=== PATIENT | male | born 1990 | race Caucasian/White ===

== ENCOUNTER 2019-11-03 00:25 | Emergency (ER) | payer BC ==
[2019-11-03] MEDS ORDERED: Augmentin 875-125 Tablet PO ONE (00:55)
[2019-11-03] MEDS ORDERED: TORAdol 30 mg Injection IM ONE (00:55)
--- NOTE | 2019-11-03 01:00 | ERPHSYRPT ---
- History of Present Illness Time Seen by Provider: 11/03/19 00:55 Source: patient Exam Limitations: no limitations Patient Subjective Stated Complaint: Pt states he thinks he has an infection in his gums due to a bad tooth. Now it hurts up into his sinuses Triage Nursing Assessment: Pt alert & oriented. Ambulated to room. Respirations easy and non-labored. Gums appear red. Physician History: Patient has pain in his gums for the past week. He is a smoker. Patient denies any recent dental work or dental injury Timing/Duration: gradual onset Severity: severe ENT Location: dental (upper central gums) Prearrival Treatment: no prearrival treatment Modifying Factors: Improves With: nothing Associated Symptoms: tooth pain (gum pain), No ear pain (R), No ear pain (L), No cough, No fever, No chills, No change in hearing, No dizziness, No drooling, No ear drainage, No facial pain/swelling, No headache, No hearing loss, No jaw pain, No malaise, No motion sickness, No nasal congestion/drainage, No epistaxis , No nasal foreign body, No neck pain, No poor fluid intake, No ringing of ears , No swollen glands, No sinus infection, No sore throat, No difficulty swallowing, No voice change Allergies/Adverse Reactions: No Known Drug Allergies Allergy (Unverified 08/14/14 21:10) Home Medications: Alprazolam 1 mg [Xanax 1 mg] 1 mg PO BID 11/03/19 [History] Gabapentin 600 mg PO QID 11/03/19 [History] Tapentadol HCl [Nucynta] 75 mg PO TID 11/03/19 [History] Hx Tetanus, Diphtheria Vaccination/Date Given: No Hx Influenza Vaccination/Date Given: No Hx Pneumococcal Vaccination/Date Given: No - Review of Systems Constitutional: No Fever, No Chills Eyes: No Eye Pain, No Vision Changes Ears, Nose, & Throat: No Ear Pain, No Nose Congestion, No Nose Discharge, No Epistaxis, No Mouth Swelling, No Loose Teeth, No Throat Pain, No Throat Swelling , No Painful Swallowing Respiratory: No Cough, No Dyspnea Cardiac: No Chest Pain, No Edema, No Syncope Abdominal/Gastrointestinal: No Abdominal Pain, No Nausea, No Vomiting, No Diarrhea, No Hematemesis, No Hematochezia, No Melena Genitourinary Symptoms: No Dysuria, No Hematuria, No Flank Pain Musculoskeletal: No Back Pain, No Neck Pain Skin: No Rash Neurological: No Dizziness, No Focal Weakness, No Headache, No Parasthesia, No Sensory Changes Psychological: No Symptoms Endocrine: No Excessive Sweating Hematologic/Lymphatic: No Easy Bleeding, No Easy Bruising All Other Systems: Reviewed and Negative - Past Medical History Pertinent Past Medical History: Yes Other Medical History: ALLERGIES, ECZEMA - Past Surgical History Past Surgical History: Yes Gastrointestinal: Hernia Repair Other Surgical History: TUBES IN EARS - Social History Smoking Status: Current every day smoker Exposure to second hand smoke: Yes Drug Use: none Patient Lives Alone: No Significant Family History: no pertinent family hx - Nursing Vital Signs Nursing Vital Signs: Initial Vital Signs Temperature 98.2 F 11/03/19 00:51 Pulse Rate 95 H 11/03/19 00:51 Respiratory Rate 16 11/03/19 00:51 O2 Sat by Pulse Oximetry 97 11/03/19 00:51 Pain Scale Pain Intensity 9 - Physical Exam General Appearance: no apparent distress, alert Eye Exam: bilateral eye: normal inspection, PERRL, EOMI Ear Exam: bilateral ear: auricle normal, canal normal, TM normal Nasal Exam: normal inspection, No active bleeding, No discharge, No dried blood , No foreign body, No sinus tenderness Throat Exam: pharynx normal, moist mucus membranes, No dental tenderness ( swollen, erythematous gingiva over teeth 6-10), No excessive drooling, No foreign body, No mandibular swelling, No maxillary swelling, No pharynx swelling , No pharynx tenderness, No tongue swollen, No tonsillar exudate, No tonsillar swelling, No trismus, No uvula swelling, No voice changes Neck Exam: normal inspection, non-tender, supple, full range of motion, trachea midline, No JVD, No lymphadenopathy (R), No lymphadenopathy (L), No stiff neck Cardiovascular/Respiratory Exam: normal breath sounds, regular rate/rhythm, heart sounds normal, no ecchymosis, no JVD, no M/R/G, no respiratory distress, No JVD Abdominal Exam: non-tender, soft Neurologic Exam: alert, oriented x 3, 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, normal mood/ affect, sensation nml, No motor deficits Skin Exam: normal color, warm, dry, No rash, No petechiae, No cyanosis SpO2 Interpretation: normal SpO2: 97 O2 Delivery: Room Air - Course Nursing assessment & vital signs reviewed: Yes Ordered Tests: Medication Summary Discontinued Medications Generic Name Dose Route Start Last Admin Trade Name Wendi PRN Reason Stop Dose Admin Amoxicillin/Clavulanate Potassium 875 mg 11/03/19 00:55 11/03/19 01:11 Augmentin 875-125 Tablet PO 11/03/19 00:56 875 mg STAT ONE Administration Amoxicillin/Clavulanate Potassium Confirm 11/03/19 01:07 Augmentin 875-125 Tablet Administered 11/03/19 01:08 Dose 875 mg .ROUTE .STK-MED ONE Ketorolac Tromethamine 60 mg 11/03/19 00:55 11/03/19 01:11 Toradol 30 Mg Injection IM 11/03/19 00:56 60 mg STAT ONE Administration Ketorolac Tromethamine Confirm 11/03/19 01:07 Toradol 30 Mg Injection Administered 11/03/19 01:08 Dose 60 mg .ROUTE .STK-MED ONE - Departure Departure Disposition: Home Clinical Impression: Acute gingivitis, Elevated blood pressure reading without diagnosis of hypertension Condition: Good Critical Care Time: No Referrals: TK QUEVEDO MD [Primary Care Provider] - 11/03/19 HOPE FLORIAN DDS [NON-STAFF PHY W/O PRIVILEGES] - 11/03/19 (Dentist for your reference) Instructions: Gingivitis (DC), Periodontal Disease Treatment (DC), Dental Pain (DC), Quitting Smoking Additional Instructions: Try not to smoke for the next two days. Follow-up with the dental referral given to you. Take the medication as directed. Return E. nearly back to the emergency department if you have any worsening swelling, difficulty swallowing, tongue swelling, facial swelling, fever, skin rash, painful swallowing or any other concerning signs or symptoms that were not present at the base of her throat as if for immediate reevaluation in the emergency department. Discharge/Care Plan TEREZA GARRISON MONI CHRISTIANSON was seen on 11/03/19 in the Emergency Room. The patient was counseled regarding Diagnosis,Lab results, Imaging studies, need for follow up and when to return to the Emergency Room. Prescriptions given: Amoxicillin, Lodine Discharge Note I have spoken with the patient. I have explained the patient's condition, diagnosis and treatment plan based on the information available to me at this time. I have answered the patient's questions and addressed any concerns. The patient has a good understanding of the patient's diagnosis, condition and treatment plan as can be expected at this point. The vital signs have been stable. The patient's condition is stable and appropriate for discharge from the emergency department. The patient will pursue further outpatient evaluation with the primary care physician or other designated or consulting physician as outlined in the discharge instructions. The patient is agreeable to this plan of care and follow -up instructions have been explained in detail. The patient has received these instruction. The patient is aware that any significant change in condition or worsening of symptoms should prompt an immediate return to this or the closest emergency department or call 911. Prescriptions: Amoxicillin 500 mg PO TID #21 capsule Etodolac 400 mg [Lodine 400 mg] 400 mg PO BID PRN PRN #20 tablet PRN Reason: Pain
[2019-11-03] MEDS ORDERED: TORAdol 30 mg Injection ONE (01:07)
[2019-11-03] MEDS ORDERED: Augmentin 875-125 Tablet ONE (01:07)
[2019-11-03 02:11] VITALS: BP 113/77; PULSE 93; O2SAT 94
== END 2019-11-03 02:11 | disposition home or self-care (01) ==
LOC: ED 00:25
DX: K05.00 Acute gingivitis, plaque induced (principal); R03.0 Elevated blood-pressure reading, without diagnosis of hypertension
CPT/HCPCS: 96372; 99283; J1885; A9270-GY

== ENCOUNTER 2019-12-08 00:01 | Emergency (ER) | payer BC ==
[2019-12-08] MEDS ORDERED: Sodium Chloride 0.9% 1000 ML 1,000 ML IV STA ×2 (00:13→01:20)
[2019-12-08] MEDS ORDERED: DECADRON 10MG INJ. IV ONE (00:13)
[2019-12-08] MEDS ORDERED: Zofran 4 MG/2 ML VIAL IV ONE (00:14)
[2019-12-08 00:15] VITALS: O2SAT 96
--- NOTE | 2019-12-08 00:27 | ERPHSYRPT ---
- History of Present Illness Time Seen by Provider: 12/08/19 00:15 Source: patient Exam Limitations: no limitations Patient Subjective Stated Complaint: pt states, "I've felt terrible x2 days, fever, diarrhea, sore throat, vomiting, can't keep anything down but water". Triage Nursing Assessment: Pt c/o sore throat which is very red and has petechiae. Pt c/o vomiting, diarrhea, fever and can't drink anything but water and keep it down. Pt c/o pain to throat, rates it a 5. Physician History: Patient has a sore throat, fatigue, vomiting and diarrhea for the past two days. Multiple sick contacts with similar symptoms. Timing/Duration: abrupt onset Severity: moderate ENT Location: throat Prearrival Treatment: no prearrival treatment Associated Symptoms: fever, chills, malaise, poor solids intake, sore throat, No ear pain (R), No ear pain (L), No cough, No change in hearing, No dizziness, No drooling, No ear drainage, No facial pain/swelling, No headache, No hearing loss, No jaw pain, No motion sickness, No nasal congestion/drainage, No epistaxis, No nasal foreign body, No neck pain, No ringing of ears, No swollen glands, No sinus infection, No tooth pain, No difficulty swallowing, No voice change Allergies/Adverse Reactions: No Known Drug Allergies Allergy (Unverified 08/14/14 21:10) Home Medications: Alprazolam 1 mg [Xanax 1 mg] 1 mg PO TID 11/03/19 [History] Gabapentin 600 mg PO QID 11/03/19 [History] Tapentadol HCl [Nucynta] 75 mg PO QID 11/03/19 [History] Hx Tetanus, Diphtheria Vaccination/Date Given: Yes Hx Influenza Vaccination/Date Given: No Hx Pneumococcal Vaccination/Date Given: No Immunizations Up to Date: Yes - Review of Systems Constitutional: Fever, Chills, Fatigue, Malaise Eyes: No Eye Pain, No Vision Changes Ears, Nose, & Throat: Throat Pain, No Ear Pain, No Nose Congestion, No Mouth Pain, No Throat Swelling, No Painful Swallowing Respiratory: No Cough, No Dyspnea Cardiac: No Chest Pain, No Edema, No Syncope Abdominal/Gastrointestinal: No Abdominal Pain, No Nausea, No Vomiting, No Diarrhea Genitourinary Symptoms: No Dysuria, No Frequency, No Hematuria, No Flank Pain Musculoskeletal: No Back Pain, No Neck Pain Skin: No Rash Neurological: No Dizziness, No Focal Weakness, No Headache, No Sensory Changes Psychological: No Symptoms Endocrine: No Excessive Sweating Hematologic/Lymphatic: No Easy Bleeding, No Easy Bruising All Other Systems: Reviewed and Negative - Past Medical History Pertinent Past Medical History: Yes Neurological History: No Pertinent History ENT History: No Pertinent History Cardiac History: No Pertinent History Respiratory History: No Pertinent History Endocrine Medical History: No Pertinent History Musculoskeletal History: Arthritis, Fractures GI Medical History: No Pertinent History History: No Pertinent History Psycho-Social History: Anxiety Male Reproductive Disorders: No Pertinent History Other Medical History: ALLERGIES, ECZEMA - Past Surgical History Past Surgical History: Yes Neuro Surgical History: No Pertinent History Cardiac: No Pertinent History Respiratory: No Pertinent History Gastrointestinal: Hernia Repair Genitourinary: No Pertinent History Musculoskeletal: No Pertinent History Male Surgical History: No Pertinent History Other Surgical History: TUBES IN EARS - Social History Smoking Status: Current every day smoker How long have you smoked: 10 yrs Exposure to second hand smoke: Yes Drug Use: none Patient Lives Alone: No Significant Family History: no pertinent family hx - Nursing Vital Signs Nursing Vital Signs: Initial Vital Signs Temperature 99.2 F 12/08/19 00:10 Pulse Rate 136 H 12/08/19 00:10 Respiratory Rate 19 12/08/19 00:10 Blood Pressure 123/99 12/08/19 00:10 O2 Sat by Pulse Oximetry 96 12/08/19 00:10 Pain Scale Pain Intensity 5 - Physical Exam General Appearance: no apparent distress, alert Eye Exam: bilateral eye: normal inspection, PERRL, EOMI Ear Exam: bilateral ear: auricle normal, canal normal, TM normal Nasal Exam: normal inspection, No discharge, No sinus tenderness Throat Exam: moist mucus membranes, pharynx swelling (positive erythema and petechiae on soft and hard palates), uvula swelling, No dental tenderness, No mandibular swelling, No maxillary swelling, No tongue swollen, No tonsillar exudate, No tonsillar swelling, No trismus Neck Exam: normal inspection, non-tender, supple, full range of motion, trachea midline, lymphadenopathy (R), lymphadenopathy (L), No limited range of motion, No Brudzinski's sign, No Kernig's sign, No meningismus Cardiovascular/Respiratory Exam: normal breath sounds, regular rate/rhythm, heart sounds normal, no M/R/G, no respiratory distress Abdominal Exam: non-tender, soft, No no organomegaly, No guarding, No tenderness Neurologic Exam: alert, oriented x 3, cooperative, 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, normal mood/affect, sensation nml, No motor deficits Skin Exam: normal color, warm, dry, No rash, No petechiae, No jaundice, No cyanosis SpO2 Interpretation: normal SpO2: 96 O2 Delivery: Room Air - Course Nursing assessment & vital signs reviewed: Yes Ordered Tests: Active Orders 24 hr Category Date Time Status IV Insertion STAT Care 12/08/19 00:13 Active AMYLASE Stat Lab 12/08/19 00:33 Completed CBC W DIFF Stat Lab 12/08/19 00:33 Completed CMP Stat Lab 12/08/19 00:33 Completed LIPASE Stat Lab 12/08/19 00:33 Completed Lactic Acid Stat Lab 12/08/19 00:40 Completed [place] Screen Stat Lab 12/08/19 00:33 Completed Medication Summary Discontinued Medications Generic Name Dose Route Start Last Admin Trade Name Freq PRN Reason Stop Dose Admin Dexamethasone Sodium Phosphate 10 mg 12/08/19 00:13 12/08/19 00:40 Decadron 10mg Inj. IV 12/08/19 00:14 10 mg STAT ONE Administration Dexamethasone Sodium Phosphate Confirm 12/08/19 00:37 Decadron 10mg Inj. Administered 12/08/19 00:38 Dose 10 mg .ROUTE .STK-MED ONE Sodium Chloride 1,000 mls @ 999 mls/hr 12/08/19 00:13 12/08/19 00:41 Sodium Chloride 0.9% 1000 Ml IV 12/08/19 01:13 999 mls/hr .Q1H1M STA Administration Sodium Chloride Confirm 12/08/19 00:37 Sodium Chloride 0.9% 1000 Ml Administered 12/08/19 00:38 Dose 1,000 mls @ ud .ROUTE .STK-MED ONE Ceftriaxone Sodium/Dextrose 1 g in 50 mls @ 100 mls/hr 12/08/19 01:16 01:37 Rocephin 1 Gm-D5w 50 Ml Bag IV 12/08/19 01:45 100 mls/hr STAT STA 100 mls/hr Administration Sodium Chloride 1,000 mls @ 999 mls/hr 12/08/19 01:20 12/08/19 01:41 Sodium Chloride 0.9% 1000 Ml IV 12/08/19 02:20 999 mls/hr .Q1H1M STA Administration Sodium Chloride Confirm 12/08/19 01:36 Sodium Chloride 0.9% 1000 Ml Administered 12/08/19 01:37 Dose 1,000 mls @ ud .ROUTE .STK-MED ONE Ceftriaxone Sodium/Dextrose Confirm 12/08/19 01:36 Rocephin 1 Gm-D5w 50 Ml Bag Administered 12/08/19 01:37 Dose 1 g in 50 mls @ ud IV .STK-MED ONE Ondansetron HCl 4 mg 12/08/19 00:14 12/08/19 00:40 Zofran 4 Mg/2 Ml Vial IV 12/08/19 00:15 4 mg STAT ONE Administration Ondansetron HCl Confirm 12/08/19 00:37 Zofran 4 Mg/2 Ml Vial Administered 12/08/19 00:38 Dose 4 mg .ROUTE .STK-MED ONE Lab/Rad Data: Laboratory Result Diagrams 12/08/19 00:33 12/08/19 00:33 Laboratory Results 12/08/19 12/08/19 12/08/19 Range/Units 00:40 00:35 00:33 WBC (4.0-10.5) K/mm3 RBC (4.1-5.6) M/mm3 Hgb (12.5-18.0) gm/dl Hct (42-50) % MCV (78-100) fl MCH (26-32) pg MCHC (32-36) g/dl RDW (11.5-14.0) % Plt Count (150-450) K/mm3 MPV (7.5-11.0) fl Gran % (36.0-66.0) % Eos # (Auto) (0-0.5) Absolute Lymphs (auto) (1.0-4.6) Absolute Monos (auto) (0.0-1.3) Lymphocytes % (24.0-44.0) % Monocytes % (0.0-12.0) % Eosinophils % (0.00-5.0) % Basophils % (0.0-0.4) % Absolute Granulocytes (1.4-6.9) Basophils # (0-0.4) Sodium (137-145) mmol/L Potassium (3.5-5.1) mmol/L Chloride (98-107) mmol/L Carbon Dioxide (22-30) mmol/L Anion Gap (5-15) MEQ/L BUN (9-20) mg/dL Creatinine (0.66-1.25) mg/dL Estimated GFR ML/MIN Glucose (74-106) mg/dL Lactic Acid 1.2 (0.4-2.0) Calcium (8.4-10.2) mg/dL Total Bilirubin (0.2-1.3) mg/dL AST (17-59) U/L ALT (0-50) U/L Alkaline Phosphatase (38-126) U/L Serum Total Protein (6.3-8.2) g/dL Albumin (3.5-5.0) g/dL Amylase (30-110) U/L Lipase (23-300) U/L Monoscreen NEGATIVE (Negative) Influenza Type A Ag NEGATIVE (NEGATIVE) Influenza Type B Ag NEGATIVE (NEGATIVE) RSV (PCR) NEGATIVE (Negative) Group A Strep Antibody (NEGATIVE) 12/08/19 12/08/19 12/08/19 Range/Units 00:33 00:33 00:25 WBC 19.4 H (4.0-10.5) K/mm3 RBC 5.37 (4.1-5.6) M/mm3 Hgb 16.7 (12.5-18.0) gm/dl Hct 46.7 (42-50) % MCV 87.0 (78-100) fl MCH 31.1 (26-32) pg MCHC 35.8 (32-36) g/dl RDW 13.3 (11.5-14.0) % Plt Count 198 (150-450) K/mm3 MPV 9.7 (7.5-11.0) fl Gran % 88.6 H (36.0-66.0) % Eos # (Auto) 0.25 (0-0.5) Absolute Lymphs (auto) 0.47 L (1.0-4.6) Absolute Monos (auto) 1.46 H (0.0-1.3) Lymphocytes % 2.4 L (24.0-44.0) % Monocytes % 7.5 (0.0-12.0) % Eosinophils % 1.3 (0.00-5.0) % Basophils % 0.2 (0.0-0.4) % Absolute Granulocytes 17.15 H (1.4-6.9) Basophils # 0.04 (0-0.4) Sodium 134 L (137-145) mmol/L Potassium 3.6 (3.5-5.1) mmol/L Chloride 96 L (98-107) mmol/L Carbon Dioxide 24 (22-30) mmol/L Anion Gap 16.8 H (5-15) MEQ/L BUN 16 (9-20) mg/dL Creatinine 1.21 (0.66-1.25) mg/dL Estimated GFR > 60.0 ML/MIN Glucose 103 (74-106) mg/dL Lactic Acid (0.4-2.0) Calcium 9.2 (8.4-10.2) mg/dL Total Bilirubin 1.70 H (0.2-1.3) mg/dL AST 26 (17-59) U/L ALT 27 (0-50) U/L Alkaline Phosphatase 68 (38-126) U/L Serum Total Protein 7.3 (6.3-8.2) g/dL Albumin 4.1 (3.5-5.0) g/dL Amylase 52 (30-110) U/L Lipase < 10 L (23-300) U/L Monoscreen (Negative) Influenza Type A Ag (NEGATIVE) Influenza Type B Ag (NEGATIVE) RSV (PCR) (Negative) Group A Strep Antibody POSITIVE (NEGATIVE) - Progress Progress: improved Progress Note: 12/08/19 01:23 Patient is feeling better with IV medications and IV fluids. Patient will be given Rocephin 1 gm IV times one also and another liter 0.9 NS via IV 12/08/19 02:46 Patient is feeling better. Pulse has improved after IV hydration. Patient can be discharged home to continue therapy as an outpatient as he is hemodynamically in good condition, can take oral intake and has no signs of any deeper pharyngeal infections today. Counseled pt/family regarding: lab results, diagnosis, need for follow-up - Departure Departure Disposition: Home Clinical Impression: Strep throat, Elevated blood pressure reading without diagnosis of hypertension , Dehydration Nausea and vomiting Qualifiers: Vomiting type: unspecified Vomiting Intractability: non-intractable Qualified Code(s): R11.2 - Nausea with vomiting, unspecified Condition: Good Critical Care Time: No Referrals: TK QUEVEDO MD [NON-STAFF PHY W/O PRIVILEGES] - Follow Up with PCP/3 days Instructions: Diarrhea and Traveler's Diarrhea -- Adult, Vomiting -- Adult, Sore Throat, Adult (DC) Additional Instructions: You have strep throat causing your symptoms. Return immediately back to the emergency department if any worsening pain on swallowing, poor oral intake, worsening vomiting, back pain, chest pain, new cough, new fever spike, new skin rash, new blood in the urine, knew swelling in your joints or any other concerning signs or symptoms that were not present at today's emergency department visit for immediate reevaluation in the emergency department. Forms: Work/School Release Form Prescriptions: Promethazine HCl 25 mg [Phenergan 25 mg] 25 mg PO Q6H PRN PRN #12 tablet PRN Reason: Nausea Cephalexin Mh 500 mg [Keflex 500 mg] 500 mg PO BID #20 capsule Prednisone 20 mg [Deltasone 20 mg] 60 mg PO DAILY PRN #9 tablet PRN Reason: Sore Throat Relief
[2019-12-08] MEDS ORDERED: DECADRON 10MG INJ. ONE (00:37)
[2019-12-08] MEDS ORDERED: Zofran 4 MG/2 ML VIAL ONE (00:37)
[2019-12-08] MEDS ORDERED: Sodium Chloride 0.9% 1000 ML 1,000 ML ONE ×2 (00:37→01:36)
[2019-12-08 00:39] LABS: Absolute Neutrophil Ct (ANC) 17.15 (1.4-6.9); BASOPHIL % 0.2 % (0.0-0.4); Basophil (Absolute #) 0.04 (0-0.4); Eosinophil % 1.3 % (0.00-5.0); Eosinophil (Absolute #) 0.25 (0-0.5); Hematocrit 46.7 % (42-50); Hemoglobin 16.7 gm/dl (12.5-18.0); Lymphocyte (Absolute #) 0.47 (1.0-4.6); Lymphocytes % 2.4 % (24.0-44.0); Mean Corpuscular Hemoglobin 31.1 pg (26-32); Mean Corpuscular Hgb Concent. 35.8 g/dl (32-36); Mean Platelet Volume 9.7 fl (7.5-11.0); Monocyte (Absolute #) 1.46 (0.0-1.3); Monocytes % 7.5 % (0.0-12.0); Neutrophil % 88.6 % (36.0-66.0); Platelet Count 198 K/mm3 (150-450); Red Blood Count 5.37 M/mm3 (4.1-5.6); Red Cell Distribution Width 13.3 % (11.5-14.0); White Blood Count 19.4 K/mm3 (4.0-10.5)
[2019-12-08 00:53] LABS: ALBUMIN 4.1 g/dL (3.5-5.0); ALKALINE PHOSPHATASE 68 U/L (38-126); AMYLASE 52 U/L (30-110); ANION GAP 16.8 MEQ/L (5-15); BLOOD UREA NITROGEN 16 mg/dL (9-20); CHLORIDE 96 mmol/L (98-107); Calcium 9.2 mg/dL (8.4-10.2); Carbon Dioxide 24 mmol/L (22-30); Creatinine 1 1.21 mg/dL (0.66-1.25); Glucose 103 mg/dL (74-106); Potassium 3.6 mmol/L (3.5-5.1); SGOT/AST 26 U/L (17-59); SGPT/ALT 27 U/L (0-50); SODIUM 134 mmol/L (137-145); Total Protein 7.3 g/dL (6.3-8.2)
[2019-12-08 00:56] LABS: LIPASE < 10 U/L (23-300)
[2019-12-08 01:11] LABS: INFLUENZA A NEGATIVE (NEGATIVE); INFLUENZA B NEGATIVE (NEGATIVE); RESPIRATORY SYNCTIAL VIRUS NEGATIVE (Negative)
[2019-12-08] MEDS ORDERED: ROCEPHIN 1 Gm-D5w 50 ml Bag** 1 G/50 ML IVPB IV STA (01:16)
[2019-12-08] MEDS ORDERED: ROCEPHIN 1 Gm-D5w 50 ml Bag** 1 G/50 ML IVPB IV ONE (01:36)
[2019-12-08 02:46] VITALS: BP 125/86; PULSE 102
[2019-12-08 03:57] LABS: Slide Review 1 YES
== END 2019-12-08 02:48 | disposition home or self-care (01) ==
LOC: ED 00:01
DX: J02.0 Streptococcal pharyngitis (principal); R03.0 Elevated blood-pressure reading, without diagnosis of hypertension; E86.0 Dehydration; R11.2 Nausea with vomiting, unspecified
CPT/HCPCS: 36000; 36415; 80053; 82150; 83605; 83690; 85025; 86308; 87631; 87651; 96360; 96361; 96365; 96374; 96375; 99284; J0696; J1100; J2405

== ENCOUNTER 2020-04-26 21:16 | Emergency (ER) | payer BC ==
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
[2020-04-26] MEDS ORDERED: TORAdol 30 mg Injection IM ONE (23:37)
[2020-04-26] MEDS ORDERED: TORAdol 30 mg Injection ONE (23:54)
[2020-04-26 23:58] VITALS: O2SAT 98
[2020-04-27 00:29] VITALS: BP 106/52; PULSE 75
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
== END 2020-04-27 00:11 | disposition home or self-care (01) ==
LOC: ED 21:16
DX: S46.812A Strain of other muscles, fascia and tendons at shoulder and upper arm level, left arm, initial encounter (principal); S63.602A Unspecified sprain of left thumb, initial encounter; V49.49XA Driver injured in collision with other motor vehicles in traffic accident, initial encounter; Y93.89 Activity, other specified; Y92.410 Unspecified street and highway as the place of occurrence of the external cause; S80.01XA Contusion of right knee, initial encounter; M25.561 Pain in right knee; M79.645 Pain in left finger(s); M25.512 Pain in left shoulder; F41.9 Anxiety disorder, unspecified; F32.9 Major depressive disorder, single episode, unspecified; M19.90 Unspecified osteoarthritis, unspecified site; Z72.0 Tobacco use
CPT/HCPCS: 73030; 73130; 73560; 96372; 99285; J1885; L1830

== ENCOUNTER 2021-03-15 07:57 | Emergency (ER) | payer BC ==
[2021-03-15] MEDS ORDERED: Zofran 4 MG/2 ML VIAL IV ONE (08:26)
[2021-03-15] MEDS ORDERED: Sodium Chloride 0.9% 1000 ML 1,000 ML IV STA ×2 (08:26→10:29)
[2021-03-15] MEDS ORDERED: Sodium Chloride 0.9% 1000 ML 1,000 ML ONE ×2 (08:28→10:28)
[2021-03-15] MEDS ORDERED: Zofran 4 MG/2 ML VIAL ONE (08:28)
--- NOTE | 2021-03-15 08:31 | ERPHSYRPT ---
- History of Present Illness Time Seen by Provider: 03/15/21 08:17 Historian: patient Exam Limitations: no limitations Patient Subjective Stated Complaint: Pt states that he has been vomiting since 1700 yesterday and hasn't been able to hold anything down since Triage Nursing Assessment: Pt drove self to the ER, vitals wnl, rates throat pain as 3/10 due to the vomiting, denies issues with bowels, last intake that stayed down was around 1200 yesterday, denies pain to abdomen with palpatation, doesn't appear to be in any distress Physician History: 30 years old healthy male presented in the ER with chief complaint of sudden onset nausea around 5:30 PM last night when he was driving back home from work, 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 Patient report multiple episodes of vomiting with no hematemesis since yesterday. Denies any abdominal pain diarrhea or constipation. No fever or chills reported. Denies any sick contact. Since last evening patient is unable to and feels fatigued ti red with lack of energy. Timing/Duration: yesterday, sudden Activities at Onset: other Severity of Pain-Max: none Severity of Pain-Current: none Associated Symptoms: fatigue, loss of appetite, nausea, vomiting Previous symptoms: no prior history Allergies/Adverse Reactions: No Known Drug Allergies Allergy (Verified 03/15/21 08:11) Home Medications: Pregabalin [Lyrica] 300 mg PO BID 03/15/21 [History] Tapentadol HCl [Nucynta] 100 mg PO Q4-6HPRN PRN 03/15/21 [History] Tizanidine HCl 4 mg [Zanaflex 4 MG] 4 mg PO UD 03/15/21 [History] Hx Tetanus, Diphtheria Vaccination/Date Given: Yes Hx Influenza Vaccination/Date Given: No Hx Pneumococcal Vaccination/Date Given: No Travel Risk - International Travel Have you traveled outside of the country in past 3 weeks: No - Coronavirus Screening Are you exhibiting any of the following symptoms?: No Close contact with a COVID-19 positive Pt in past 14-21 Days: No - Vaccine Status Have you recieved a Covid-19 vaccination: Yes 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: [employer] - Vaccination Dates Date of 2cond Vaccination (if applicable): February 15, 2021 - Review of Systems Constitutional: Fatigue, Weakness Eyes: No Symptoms Ears, Nose, & Throat: No Symptoms Respiratory: No Symptoms Cardiac: No Symptoms Abdominal/Gastrointestinal: Nausea, Vomiting Genitourinary Symptoms: No Symptoms Musculoskeletal: No Symptoms Skin: No Symptoms Neurological: No Symptoms Psychological: No Symptoms Endocrine: No Symptoms Hematologic/Lymphatic: No Symptoms Immunological/Allergic: No Symptoms - Past Medical History Pertinent Past Medical History: Yes Neurological History: No Pertinent History ENT History: No Pertinent History Cardiac History: No Pertinent History Respiratory History: No Pertinent History Endocrine Medical History: No Pertinent History Musculoskeletal History: Arthritis, Fractures GI Medical History: Hernia History: No Pertinent History Psycho-Social History: Anxiety, Depression Male Reproductive Disorders: No Pertinent History Other Medical History: ALLERGIES, ECZEMA - Past Surgical History Past Surgical History: Yes Neuro Surgical History: No Pertinent History Cardiac: No Pertinent History Respiratory: No Pertinent History Gastrointestinal: Hernia Repair Genitourinary: No Pertinent History Musculoskeletal: No Pertinent History Male Surgical History: No Pertinent History Other Surgical History: TUBES IN EARS - Social History Smoking Status: Current every day smoker How long have you smoked: 11 yrs Exposure to second hand smoke: Yes Drug Use: none Patient Lives Alone: No Significant Family History: no pertinent family hx - Nursing Vital Signs Nursing Vital Signs: Initial Vital Signs Temperature 98.2 F 03/15/21 08:02 Pulse Rate 71 03/15/21 08:02 Blood Pressure 133/96 03/15/21 08:02 O2 Sat by Pulse Oximetry 98 03/15/21 08:02 Pain Scale Pain Intensity 2 - Physical Exam General Appearance: no apparent distress Eye Exam: PERRL/EOMI Ears, Nose, Throat Exam: normal ENT inspection, pharyngeal erythema Neck Exam: normal inspection, non-tender, supple, full range of motion Respiratory Exam: normal breath sounds, lungs clear Cardiovascular Exam: regular rate/rhythm, normal heart sounds Gastrointestinal/Abdomen Exam: soft, No normal bowel sounds (Hypoactive bowel sounds), No tenderness, No distention, No guarding Extremity Exam: normal inspection, normal range of motion Neurologic Exam: alert, oriented x 3, cooperative Skin Exam: normal color SpO2 Interpretation: normal SpO2: 98 O2 Delivery: Room Air Ordered Tests: Active Orders 24 hr Category Date Time Status IV Insertion STAT Care 03/15/21 08:26 Completed NPO (ED) STAT Care 03/15/21 08:26 Completed OBSTR/ACUTE ABDOMEN SERIES Stat Exams 03/15/21 08:26 Completed AMYLASE Stat Lab 03/15/21 08:37 Completed CBC W DIFF Stat Lab 03/15/21 08:37 Completed CMP Stat Lab 03/15/21 08:37 Completed LIPASE Stat Lab 03/15/21 08:37 Completed MAG [MAGNESIUM] Stat Lab 03/15/21 08:28 Completed UA W/RFX UR CULTURE Stat Lab 03/15/21 08:28 Completed Medication Summary Discontinued Medications Generic Name Dose Route Start Last Admin Trade Name Wendi PRN Reason Stop Dose Admin Sodium Chloride 1,000 mls @ 999 mls/hr 03/15/21 08:26 03/15/21 09:38 Sodium Chloride 0.9% 1000 Ml IV 03/15/21 09:26 Infused .Q1H1M STA Infusion Sodium Chloride Confirm 03/15/21 08:28 Sodium Chloride 0.9% 1000 Ml Administered 03/15/21 08:29 Dose 1,000 mls @ ud .ROUTE .STK-MED ONE Sodium Chloride 1,000 mls @ 500 mls/hr 03/15/21 10:29 03/15/21 10:53 Sodium Chloride 0.9% 1000 Ml IV 03/15/21 12:28 500 mls/hr .Q2H STA Administration Sodium Chloride Confirm 03/15/21 10:28 Sodium Chloride 0.9% 1000 Ml Administered 03/15/21 10:29 Dose 1,000 mls @ ud .ROUTE .STK-MED ONE Metoclopramide HCl 10 mg 03/15/21 10:51 03/15/21 10:52 Reglan 10 Mg/2 Ml IV 03/15/21 10:52 10 mg STAT ONE Administration Metoclopramide HCl Confirm 03/15/21 10:52 Reglan 10 Mg/2 Ml Administered 03/15/21 10:53 Dose 10 mg .ROUTE .STK-MED ONE Ondansetron HCl 4 mg 03/15/21 08:26 03/15/21 08:29 Zofran 4 Mg/2 Ml Vial IV 03/15/21 08:27 4 mg STAT ONE Administration Ondansetron HCl Confirm 03/15/21 08:28 Zofran 4 Mg/2 Ml Vial Administered 03/15/21 08:29 Dose 4 mg .ROUTE .STK-MED ONE Lab/Rad Data: Laboratory Result Diagrams 03/15/21 08:37 03/15/21 08:37 Laboratory Results 03/15/21 03/15/21 03/15/21 Range/Units 08:37 08:37 08:28 WBC 10.9 H (4.0-10.5) K/mm3 RBC 6.14 H* (4.1-5.6) M/mm3 Hgb 18.4 H (12.5-18.0) gm/dl Hct 52.6 H (42-50) % MCV 85.7 (78-100) fl MCH 30.0 (26-32) pg MCHC 35.0 (32-36) g/dl RDW 13.0 (11.5-14.0) % Plt Count 323 (150-450) K/mm3 MPV 10.2 (7.5-11.0) fl Gran % 74.8 H (36.0-66.0) % Eos # (Auto) 0.03 (0-0.5) Absolute Lymphs (auto) 1.85 (1.0-4.6) Absolute Monos (auto) 0.84 (0.0-1.3) Lymphocytes % 16.9 L (24.0-44.0) % Monocytes % 7.7 (0.0-12.0) % Eosinophils % 0.3 (0.00-5.0) % Basophils % 0.3 (0.0-0.4) % Absolute Granulocytes 8.17 H (1.4-6.9) Basophils # 0.03 (0-0.4) Sodium 140 (137-145) mmol/L Potassium 3.7 (3.5-5.1) mmol/L Chloride 101 (98-107) mmol/L Carbon Dioxide 26 (22-30) mmol/L Anion Gap 16.7 H (5-15) MEQ/L BUN 11 (9-20) mg/dL Creatinine 1.07 (0.66-1.25) mg/dL Estimated GFR > 60.0 ML/MIN Glucose 106 (74-106) mg/dL Calcium 9.9 (8.4-10.2) mg/dL Magnesium 1.9 (1.6-2.3) mg/dL Total Bilirubin 1.60 H (0.2-1.3) mg/dL AST 22 (17-59) U/L ALT 24 (0-50) U/L Alkaline Phosphatase 69 (38-126) U/L Serum Total Protein 7.9 (6.3-8.2) g/dL Albumin 4.7 (3.5-5.0) g/dL Amylase 73 (30-110) U/L Lipase 50 (23-300) U/L Urine Color (YELLOW) Urine Appearance (CLEAR) Urine pH (5-6) Ur Specific [place] (1.005-1.025) Urine Protein (Negative) Urine Ketones (NEGATIVE) Urine Blood (0-5) [place]/ul Urine Nitrite (NEGATIVE) Urine Bilirubin (NEGATIVE) Urine Urobilinogen (0-1) mg/dL Ur Leukocyte Esterase (NEGATIVE) Urine WBC (Auto) (0-5) /HPF Urine RBC (Auto) (0-2) /HPF U Epithel Cells (Auto) (FEW) /HPF Urine Bacteria (Auto) (NEGATIVE) /HPF Urine Mucus (Auto) (NEGATIVE) /HPF Urine Culture Reflexed (NO) Urine Glucose (NEGATIVE) mg/dL 03/15/21 Range/Units 08:28 WBC (4.0-10.5) K/mm3 RBC (4.1-5.6) M/mm3 Hgb (12.5-18.0) gm/dl Hct (42-50) % MCV (78-100) fl MCH (26-32) pg MCHC (32-36) g/dl RDW (11.5-14.0) % Plt Count (150-450) K/mm3 MPV (7.5-11.0) fl Gran % (36.0-66.0) % Eos # (Auto) (0-0.5) Absolute Lymphs (auto) (1.0-4.6) Absolute Monos (auto) (0.0-1.3) Lymphocytes % (24.0-44.0) % Monocytes % (0.0-12.0) % Eosinophils % (0.00-5.0) % Basophils % (0.0-0.4) % Absolute Granulocytes (1.4-6.9) Basophils # (0-0.4) Sodium (137-145) mmol/L Potassium (3.5-5.1) mmol/L Chloride (98-107) mmol/L Carbon Dioxide (22-30) mmol/L Anion Gap (5-15) MEQ/L BUN (9-20) mg/dL Creatinine (0.66-1.25) mg/dL Estimated GFR ML/MIN Glucose (74-106) mg/dL Calcium (8.4-10.2) mg/dL Magnesium (1.6-2.3) mg/dL Total Bilirubin (0.2-1.3) mg/dL AST (17-59) U/L ALT (0-50) U/L Alkaline Phosphatase (38-126) U/L Serum Total Protein (6.3-8.2) g/dL Albumin (3.5-5.0) g/dL Amylase (30-110) U/L Lipase (23-300) U/L Urine Color [place] (YELLOW) Urine Appearance SLIGHTLY CLOUDY (CLEAR) Urine pH 6.0 (5-6) Ur Specific [place] 1.029 (1.005-1.025) Urine Protein 100 (Negative) Urine Ketones MODERATE (NEGATIVE) Urine Blood NEGATIVE (0-5) [place]/ul Urine Nitrite NEGATIVE (NEGATIVE) Urine Bilirubin NEGATIVE (NEGATIVE) Urine Urobilinogen 4 (0-1) mg/dL Ur Leukocyte Esterase NEGATIVE (NEGATIVE) Urine WBC (Auto) 0-2 (0-5) /HPF Urine RBC (Auto) 0-2 (0-2) /HPF U Epithel Cells (Auto) RARE (FEW) /HPF Urine Bacteria (Auto) RARE (NEGATIVE) /HPF Urine Mucus (Auto) MANY (NEGATIVE) /HPF Urine Culture Reflexed NO (NO) Urine Glucose NEGATIVE (NEGATIVE) mg/dL - Progress Progress: improved, re-examined Progress Note: 03/15/21 10:25 Negative acute abdomen work-up. Given fluids and Zofran along with metoclopramide, on reevaluation feeling better and wants to go home. X-rays negative for any acute findings. Abdomen soft nontender. Do not think needs CT imaging. Patient wants to go home I think is reasonable. Give him Zofran to go home. Discussed signs symptoms of worsening needing return to ER which he seems understanding. Counseled pt/family regarding: lab results, diagnosis, need for follow-up, rad results - Departure Departure Disposition: Home Clinical Impression: Dehydration Nausea & vomiting Qualifiers: Vomiting type: unspecified Vomiting Intractability: non-intractable Qualified Code(s): R11.2 - Nausea with vomiting, unspecified Condition: Stable Critical Care Time: No Referrals: SUNITHA BENSON [Primary Care Provider] - (1-2 days for reevaluation) Instructions: Nausea and Vomiting, Adult (DC) Additional Instructions: Take Zofran as needed for nausea and vomiting. Drink plenty of fluids. Slowly introduce soft to regular diet. Take Tylenol as needed if has any abdominal pain. Do not take ibuprofen Aleve or any other NSAIDs. Follow-up with primary care for reevaluation. Return to ER for worsening/intractable vomiting, dehydration etc. or if develop fever chills. Prescriptions: Ondansetron ODT 4 MG [Zofran Odt 4 mg] 4 mg PO Q6H PRN PRN #10 tab.rapdis PRN Reason: Vomiting
[2021-03-15 08:41] LABS: Absolute Neutrophil Ct (ANC) 8.17 (1.4-6.9); BASOPHIL % 0.3 % (0.0-0.4); Basophil (Absolute #) 0.03 (0-0.4); Eosinophil % 0.3 % (0.00-5.0); Eosinophil (Absolute #) 0.03 (0-0.5); Hematocrit 52.6 % (42-50); Hemoglobin 18.4 gm/dl (12.5-18.0); Lymphocyte (Absolute #) 1.85 (1.0-4.6); Lymphocytes % 16.9 % (24.0-44.0); Mean Cell Volume 85.7 fl (78-100); Mean Platelet Volume 10.2 fl (7.5-11.0); Monocyte (Absolute #) 0.84 (0.0-1.3); Monocytes % 7.7 % (0.0-12.0); Neutrophil % 74.8 % (36.0-66.0); Platelet Count 323 K/mm3 (150-450); Red Blood Count 6.14 M/mm3 (4.1-5.6); White Blood Count 10.9 K/mm3 (4.0-10.5)
[2021-03-15 08:52] LABS: ALBUMIN 4.7 g/dL (3.5-5.0); ALKALINE PHOSPHATASE 69 U/L (38-126); AMYLASE 73 U/L (30-110); ANION GAP 16.7 MEQ/L (5-15); BLOOD UREA NITROGEN 11 mg/dL (9-20); CHLORIDE 101 mmol/L (98-107); Calcium 9.9 mg/dL (8.4-10.2); Carbon Dioxide 26 mmol/L (22-30); Creatinine 1 1.07 mg/dL (0.66-1.25); EST GLOMERULAR FILTRATION RATE > 60.0 ML/MIN; Glucose 106 mg/dL (74-106); LIPASE 50 U/L (23-300); Potassium 3.7 mmol/L (3.5-5.1); SGOT/AST 22 U/L (17-59); SGPT/ALT 24 U/L (0-50); SODIUM 140 mmol/L (137-145); Total Protein 7.9 g/dL (6.3-8.2)
[2021-03-15 08:54] LABS: Appearance SLIGHTLY CLOUDY (CLEAR); Bilirubin NEGATIVE (NEGATIVE); Blood NEGATIVE Ery/ul (0-5); Glucose NEGATIVE (NEGATIVE); Ketones MODERATE (NEGATIVE); Leukocyte Esterase NEGATIVE (NEGATIVE); Mucus MANY /HPF (NEGATIVE); Nitrite NEGATIVE (NEGATIVE); Protein,Urine Dip 100 (Negative); RBC 0-2 /HPF (0-2); Specific Gravity 1.029 (1.005-1.025); Urobilinogen 4 mg/dL (0-1); WBC 0-2 /HPF (0-5)
[2021-03-15 08:58] LABS: Bacteria RARE /HPF (NEGATIVE); Epithelial Cells RARE /HPF (FEW)
[2021-03-15 10:11] VITALS: BP 135/88; PULSE 95
[2021-03-15 10:23] VITALS: O2SAT 98
[2021-03-15] MEDS ORDERED: Reglan 10 MG/2 ML IV ONE (10:51)
[2021-03-15] MEDS ORDERED: Reglan 10 MG/2 ML ONE (10:52)
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
== END 2021-03-15 11:17 | disposition home or self-care (01) ==
LOC: ED 07:57
DX: E86.0 Dehydration (principal); R11.2 Nausea with vomiting, unspecified
CPT/HCPCS: 36000; 36415; 74022; 80053; 81001; 82150; 83690; 83735; 85025; 96360; 96374; 96375; 99284; J2405

== ENCOUNTER 2022-02-03 10:59 | Emergency (ER) | payer BC ==
[2022-02-03 11:09] VITALS: BP 131/115; PULSE 100; O2SAT 95
--- NOTE | 2022-02-03 11:21 | ERPHSYRPT ---
- History of Present Illness Time Seen by Provider: 02/03/22 11:17 Source: patient Exam Limitations: no limitations Patient Subjective Stated Complaint: Laceration Triage Nursing Assessment: Patient ambulated back to ED and transferred self to bed. Patient A+O X3. Patient's skin pink, warm and dry. Patient states he fell out of his bed hitting the right side of face on a computer monitor. Patient has 1cm abrasion to right side of forehead and 3cm to right side of eye. Patient complains of pain 5/10. Physician History: Patient states he fell out of his bed hitting the right side of face on a computer monitor. Patient has 1cm abrasion to right side of forehead and 3cm to right side of eye. Patient complains of pain 5/10. Timing/Duration: today Associated Symptoms: denies symptoms Allergies/Adverse Reactions: No Known Drug Allergies Allergy (Verified 02/03/22 11:03) Home Medications: Pregabalin [Lyrica] 300 mg PO BID 03/15/21 [History] Tapentadol HCl [Nucynta] 100 mg PO Q4-6HPRN PRN 03/15/21 [History] Hx Tetanus, Diphtheria Vaccination/Date Given: No (unknown) Hx Influenza Vaccination/Date Given: No Hx Pneumococcal Vaccination/Date Given: No Immunizations Up to Date: Yes Travel Risk - International Travel Have you traveled outside of the country in past 3 weeks: No - Coronavirus Screening Are you exhibiting any of the following symptoms?: No Close contact with a COVID-19 positive Pt in past 14-21 Days: No - Vaccine Status Have you recieved a Covid-19 vaccination: Yes 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[employer] - Vaccination Dates Date of 2cond Vaccination (if applicable): February 15, 2021 - Review of Systems Constitutional: No Symptoms Eyes: No Symptoms Ears, Nose, & Throat: No Symptoms Respiratory: No Symptoms Cardiac: No Symptoms Abdominal/Gastrointestinal: No Symptoms Genitourinary Symptoms: No Symptoms Musculoskeletal: No Symptoms Skin: Other (laceration over right upper eyelison lateral side on hoahaoism and outer canthus) - Past Medical History Pertinent Past Medical History: Yes Neurological History: No Pertinent History ENT History: No Pertinent History Cardiac History: No Pertinent History Respiratory History: No Pertinent History Endocrine Medical History: No Pertinent History Musculoskeletal History: Arthritis, Fractures GI Medical History: Hernia History: No Pertinent History Psycho-Social History: Anxiety, Depression Male Reproductive Disorders: No Pertinent History Other Medical History: ALLERGIES, ECZEMA - Past Surgical History Past Surgical History: Yes Neuro Surgical History: No Pertinent History Cardiac: No Pertinent History Respiratory: No Pertinent History Gastrointestinal: Hernia Repair Genitourinary: No Pertinent History Musculoskeletal: No Pertinent History Male Surgical History: No Pertinent History Other Surgical History: TUBES IN EARS - Social History Smoking Status: Current every day smoker How long have you smoked: 11 yrs Exposure to second hand smoke: Yes Drug Use: none Patient Lives Alone: No Significant Family History: no pertinent family hx - Nursing Vital Signs Nursing Vital Signs: Initial Vital Signs Temperature 97.7 F 02/03/22 11:04 Pulse Rate 100 H 02/03/22 11:04 Respiratory Rate 18 02/03/22 11:04 Blood Pressure 131/115 02/03/22 11:04 O2 Sat by Pulse Oximetry 95 02/03/22 11:04 Pain Scale Pain Intensity 5 - Physical Exam General Appearance: no apparent distress Eye Exam: PERRL/EOMI, other (2 cms superficial laceration over right eye lateral canthus.) Ears, Nose, Throat Exam: normal ENT inspection Neck Exam: normal inspection Back Exam: normal inspection Extremity Exam: normal inspection SpO2: 95 Procedures - Laceration/Wound Repair Right Lateral Eye Time of Procedure: 11:19 Wound Location: Right (eye lateral canthus area) Wound's Depth, Shape: superficial Wound Explored: clean Irrigated: Yes Hibiclens Prep: Yes Wound Repaired With: Steri-strips, Dermabond - Course Nursing assessment & vital signs reviewed: Yes Ordered Tests: Active Orders 24 hr Category Date Time Status Wound Care STAT Care 02/03/22 11:16 Active - Progress Progress: improved, pain not gone completely Counseled pt/family regarding: diagnosis, need for follow-up - Departure Departure Disposition: Home Clinical Impression: Laceration, eyelid, right Qualifiers: Encounter type: initial encounter Qualified Code(s): S01.111A - Laceration without foreign body of right eyelid and periocular area, initial encounter Condition: Stable Critical Care Time: No Referrals: SUNITHA BENSON [Primary Care Provider] - Follow Up with PCP/3 days Instructions: Laceration Repair With Glue (DC) Additional Instructions: Discharge/Care Plan TEREZA GARRISONMILAGROS CHRISTIANSON was seen on 02/03/22 in the Emergency Room. The patient was counseled regarding Diagnosis,Lab results, Imaging studies, need for follow up and when to return to the Emergency Room. Prescriptions given: Discharge Note I have spoken with the patient and/or caregivers. I have explained the patient's condition, diagnosis and treatment plan based on the information available to me at this time. I have answered the patient's and/or caregiver's questions and addressed any concerns. The patient and/or caregivers have as good understanding of the patient's diagnosis, condition and treatment plan as can be expected at this point. The vital signs have been stable. The patient's condition is stable and appropriate for discharge from the emergency department. The patient will pursue further outpatient evaluation with the primary care physician or other designated or consulting physician as outlined in the discharge instructions. The patient and/or caregivers are agreeable to this plan of care and follow-up instructions have been explained in detail. The patient and/or caregivers have received these instruction. The patient/and or caregivers are aware that any significant change in condition or worsening of symptoms should prompt an immediate return to this or the closest emergency department or call 911. TEREZA GARRISON MONI CHRISTIANSON was seen on 02/03/22 n the Emergency Room. At that time you were treated for an emergent condition, during your visit Laboratory, Radiology and/or other procedures may have been ordered. It is very important that you follow-up with your Primary Care Physician SUNITHA BENSON within the next 24-48 hours to review your Emergency Room visit and the final results of testing that was ordered. Some test results such as Urine Cultures, Blood Cultures, and other cultures if ordered will not be finalized for 24-48 hours. If you do not have a Primary Care Provider please call the medical records department at [phone] ext [phone] to obtain a copy of your results or you may sign into our patient portal to obtain these results by visiting us @ [email or web address] and completing the following steps: 1. Click on the Patient Portal link 2. Click the Patient Self Enrollment Link to complete the enrollment form and entering your 3. Once the enrollment form is completed you will receive an email with a temporary ID and password at the email address you provided. 4. Next choose a user name and password. Your user name must be at least 4 characters long and your password must be at least 4 characters long. 5. Choose a security question from the list and provide your answer to the question. If you already have signed into the Health Portal you may access your Health Care Information 17/06 by the following steps: 1. Login to our website @ [email or web address] 2. Enter your original user name and password. FAQS The [facility] Health Portal is an online tool that contains your Lab Results, Radiology Reports, Visit History, Discharge Instructions and Health Summary Lab and Radiology Results will not be available for 72 hours on the portal. The Portal is a secure site, passwords are encryted and URLs are re-written so they cannot be copied and pasted. You and authorized family members are the only ones who can access your Portal. Also there is a timeout feature that protects your information if you leave the Portal page open. If you have technical difficulty please use the Contact Us link on the page this will allow you to submit any questions you have regarding the Portal or you may contact the Medical Record Department at [phone] ext [phone].
[2022-02-03] MEDS ORDERED: Adacel Vial IM ONE ×2 (11:22→11:24)
== END 2022-02-03 11:35 | disposition home or self-care (01) ==
LOC: ED 10:59
DX: S01.111A Laceration without foreign body of right eyelid and periocular area, initial encounter (principal); W06.XXXA Fall from bed, initial encounter; Y92.003 Bedroom of unspecified non-institutional (private) residence as the place of occurrence of the external cause; Z79.899 Other long term (current) drug therapy; Z72.0 Tobacco use
CPT/HCPCS: 12011; 90471; 90715; 99283

== ENCOUNTER 2022-07-07 19:51 | Observation (INO) | payer BC ==
--- NOTE | 2022-07-07 20:16 | ERPHSYRPT ---
- History of Present Illness Time Seen by Provider: 07/07/22 20:11 Historian: patient Exam Limitations: no limitations Physician History: pt developed chest tightness today after spell of diaphoresis. No prior Hx ht Dx. Hptn noted tonight. Not SObreath. Smokes and Chews, Pos Fam Hx. Will try NTG and ASA and Trops. Timing/Duration: today Activities at Onset: none, sleep Quality: pressure, tightness Location: substernal Chest Pain Radiation: no radiation Severity of Pain-Max: moderate Severity of Pain-Current: moderate Modifying Factors: Improves With: nitroglycerin Associated Symptoms: nausea, palpitations Prior Chest Pain/Cardiac Workup: no prior chest pain Nitro Today/Relief: 0.4 mg x 1, provided by ED, mild relief Aspirin Treatment Today: 81 mg x 4, provided by ED Allergies/Adverse Reactions: No Known Drug Allergies Allergy (Verified 07/07/22 20:14) Home Medications: Pregabalin [Lyrica] 300 mg PO BID 03/15/21 [History] Tapentadol HCl [Nucynta] 100 mg PO Q4-6HPRN PRN 03/15/21 [History] Hx Tetanus, Diphtheria Vaccination/Date Given: No (unknown) Hx Influenza Vaccination/Date Given: No Hx Pneumococcal Vaccination/Date Given: No Travel Risk - Vaccine Status Have you recieved a Covid-19 vaccination: Yes 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[employer] - Vaccination Dates Date of 2cond Vaccination (if applicable): February 15, 2021 - Review of Systems Constitutional: No Fever, No Chills Eyes: No Symptoms Ears, Nose, & Throat: No Symptoms Respiratory: No Cough, No Dyspnea Cardiac: Chest Pain, No Edema, No Syncope Abdominal/Gastrointestinal: Nausea, No Abdominal Pain, No Vomiting, No Diarrhea Genitourinary Symptoms: No Dysuria Musculoskeletal: No Back Pain, No Neck Pain Skin: No Symptoms, No Rash Neurological: No Symptoms, No Dizziness, No Focal Weakness, No Sensory Changes Psychological: No Symptoms Endocrine: No Symptoms Hematologic/Lymphatic: No Symptoms Immunological/Allergic: No Symptoms All Other Systems: Reviewed and Negative - Past Medical History Pertinent Past Medical History: Yes Neurological History: No Pertinent History ENT History: No Pertinent History Cardiac History: No Pertinent History Respiratory History: No Pertinent History Endocrine Medical History: No Pertinent History Musculoskeletal History: Arthritis, Fractures GI Medical History: Hernia History: No Pertinent History Psycho-Social History: Anxiety, Depression Male Reproductive Disorders: No Pertinent History Other Medical History: ALLERGIES, ECZEMA - Past Surgical History Past Surgical History: Yes Neuro Surgical History: No Pertinent History Cardiac: No Pertinent History Respiratory: No Pertinent History Gastrointestinal: Hernia Repair Genitourinary: No Pertinent History Musculoskeletal: No Pertinent History Male Surgical History: No Pertinent History Other Surgical History: TUBES IN EARS - Social History Smoking Status: Current every day smoker How long have you smoked: 11 yrs Exposure to second hand smoke: Yes Drug Use: none Patient Lives Alone: No Significant Family History: no pertinent family hx - Nursing Vital Signs Nursing Vital Signs: Initial Vital Signs Temperature 97.7 F 07/07/22 20:02 Pulse Rate 113 H 07/07/22 20:02 Respiratory Rate 16 07/07/22 20:02 Blood Pressure 130/90 07/07/22 20:02 O2 Sat by Pulse Oximetry 97 07/07/22 20:02 Pain Scale Pain Intensity 2 - Physical Exam General Appearance: no apparent distress, alert Eye Exam: PERRL/EOMI, eyes nml inspection Ears, Nose, Throat Exam: normal ENT inspection, moist mucous membranes Neck Exam: normal inspection, non-tender, supple, full range of motion Respiratory Exam: normal breath sounds, lungs clear, No respiratory distress Cardiovascular Exam: regular rate/rhythm, normal heart sounds, normal peripheral pulses Gastrointestinal/Abdomen Exam: soft, No tenderness, No mass Rectal Exam: deferred Back Exam: normal inspection, No CVA tenderness, No vertebral tenderness Extremity Exam: normal inspection, normal range of motion Neurologic Exam: alert, oriented x 3, cooperative, normal mood/affect, sensation nml, No motor deficits Skin Exam: normal color, warm, dry SpO2 Interpretation: normal SpO2: 96 O2 Delivery: Room Air - Course Nursing assessment & vital signs reviewed: Yes EKG Interpreted by Me: Sinus Tach, Left Sylvia Deviation - Radiology Exams Chest X-ray Interpretation: Reviewed by me, Other (GRANULOMAS NO INFILT SEEN) - CT Exams Chest CT Interpretation: Tele-radiologist Report, No PE, Other (RUL nodular ma rkings/infection; Esophageal thickening) Ordered Tests: Active Orders 24 hr Category Date Time Status EKG-ER Only STAT Care 07/07/22 20:17 Active IV Insertion STAT Care 07/07/22 20:17 Active CHEST 1 VIEW (PORTABLE) Stat Exams 07/07/22 20:18 Completed CHEST WITH CONTRAST [CT] Stat Exams 07/07/22 20:54 Taken CBC W DIFF Stat Lab 07/07/22 20:20 Completed CMP Stat Lab 07/07/22 20:17 Completed D-DIMER QUANTITATIVE Stat Lab 07/07/22 20:20 Completed LIPASE Stat Lab 07/07/22 20:17 Completed Lactic Acid Stat Lab 07/07/22 20:27 Completed NT PRO BNP Stat Lab 07/07/22 20:17 Completed TROPONIN Q4H Lab 07/07/22 20:20 Completed TROPONIN Q4H Lab 07/08/22 00:30 Ordered TROPONIN Q4H Lab 07/08/22 04:30 Ordered UA W/RFX CULTURE Stat Lab 07/07/22 21:20 Completed Medication Summary Generic Name Dose Route Start Last Admin Trade Name Freq PRN Reason Stop Dose Admin Sodium Chloride 1,000 mls @ 100 mls/hr 07/07/22 20:30 07/07/22 20:29 Sodium Chloride 0.9% 1000 Ml IV 08/06/22 20:29 100 mls/hr .Q10H MARGARITA Administration Discontinued Medications Generic Name Dose Route Start Last Admin Trade Name Freq PRN Reason Stop Dose Admin Aspirin 324 mg 07/07/22 20:19 07/07/22 20:31 Aspirin 81 Mg Tab.Chew PO 07/07/22 20:20 324 mg STAT ONE Administration Aspirin Confirm 07/07/22 20:23 Aspirin 81 Mg Tab.Chew Administered 07/07/22 20:24 Dose 324 mg .ROUTE .STK-MED ONE Famotidine 20 mg 07/07/22 20:17 07/07/22 20:39 Famotidine 20 Mg/1 Vial IV 07/07/22 20:18 20 mg STAT ONE Administration Famotidine Confirm 07/07/22 20:23 Famotidine 20 Mg/1 Vial Administered 07/07/22 20:24 Dose 20 mg IV .STK-MED ONE Nitroglycerin 0.4 mg 07/07/22 20:19 07/07/22 20:32 Nitroglycerin 0.4 Mg (Ed) 0.4 Mg Tab.Subl SL 07/07/22 20:20 0.4 mg STAT ONE Administration Nitroglycerin Confirm 07/07/22 20:23 Nitroglycerin 0.4 Mg (Ed) 0.4 Mg Tab.Subl Administered 07/07/22 20:24 Dose 0.4 mg SL .STK-MED ONE Pantoprazole Sodium 40 mg 07/07/22 20:17 07/07/22 20:33 Pantoprazole 40 Mg Vial IV 07/07/22 20:18 40 mg STAT ONE Administration Pantoprazole Sodium Confirm 07/07/22 20:23 Pantoprazole 40 Mg Vial Administered 07/07/22 20:24 Dose 40 mg IV .STK-MED ONE Lab/Rad Data: Laboratory Result Diagrams 07/07/22 20:20 07/07/22 20:17 Laboratory Results 07/07/22 07/07/22 07/07/22 Range/Units 21:20 20:27 20:20 WBC (4.0-10.5) x10^3/uL RBC (4.1-5.6) x10^6/uL Hgb (12.5-18.0) g/dL Hct (42-50) % MCV (78-100) fL MCH (26-32) pg MCHC (32-36) g/dL RDW (11.5-14.0) % Plt Count (150-450) x10^3/uL MPV (7.5-11.0) fL Gran % (36.0-66.0) % Immature Gran % (Auto) (0.00-0.4) % Nucleat RBC Rel Count (0.00-0.1) % Eos # (Auto) (0-0.5) x10^3/uL Immature Gran # (Auto) (0.00-0.03) x10^3u/L Absolute Lymphs (auto) (1.0-4.6) x10^3/uL Absolute Monos (auto) (0.0-1.3) x10^3/uL Absolute Nucleated RBC (0.00-0.01) x10^3u/L Lymphocytes % (24.0-44.0) % Monocytes % (0.0-12.0) % Eosinophils % (0.00-5.0) % Basophils % (0.0-0.4) % Absolute Granulocytes (1.4-6.9) x10^3/uL Basophils # (0-0.4) x10^3/uL D-Dimer 0.66 H* (0.0-0.50) mg/L Sodium (137-145) mmol/L Potassium (3.5-5.1) mmol/L Chloride (98-107) mmol/L Carbon Dioxide (22-30) mmol/L Anion Gap (5-15) MEQ/L BUN (9-20) mg/dL Creatinine (0.66-1.25) mg/dL Estimated GFR ML/MIN Glucose (74-106) mg/dL Lactic Acid 1.5 (0.4-2.0) Calcium (8.4-10.2) mg/dL Total Bilirubin (0.2-1.3) mg/dL AST (17-59) U/L ALT (0-50) U/L Alkaline Phosphatase (38-126) U/L Troponin I (0.000-0.034) ng/mL NT-Pro-B Natriuret Pep (0-450) pg/mL Serum Total Protein (6.3-8.2) g/dL Albumin (3.5-5.0) g/dL Lipase (23-300) U/L Urinalys Dipstick Clnc MAIN LAB Urine Color YELLOW (YELLOW) Urine Appearance CLEAR (CLEAR) Urine pH 6.0 (5-6) Ur Specific [place] 1.020 (1.005-1.025) POC Urine Protein Conf NEGATIVE (Negative) Urine Ketones NEGATIVE (NEGATIVE) Urine Nitrite NEGATIVE (NEGATIVE) Urine Bilirubin NEGATIVE (NEGATIVE) Urine Urobilinogen 0.2 (0-1) mg/dL Urine Leukocytes NEGATIVE (NEGATIVE) Urine WBC (Auto) NONE (0-5) /HPF Urine RBC (Auto) NONE (0-2) /HPF U Epithel Cells (Auto) NONE (FEW) /HPF Urine Bacteria (Auto) NONE (NEGATIVE) /HPF Urine RBC NEGATIVE (0-5) Laron/ul Urine Mucus (Auto) SLIGHT (NEGATIVE) /HPF Ur Culture Indicated? NO Urine Glucose NEGATIVE (NEGATIVE) mg/dL 07/07/22 07/07/22 07/07/22 Range/Units 20:20 20:20 20:17 WBC 7.7 (4.0-10.5) x10^3/uL RBC 4.69 (4.1-5.6) x10^6/uL Hgb 13.9 (12.5-18.0) g/dL Hct 40.9 L (42-50) % MCV 87.2 (78-100) fL MCH 29.6 (26-32) pg MCHC 34.0 (32-36) g/dL RDW 13.0 (11.5-14.0) % Plt Count 239 (150-450) x10^3/uL MPV 10.1 (7.5-11.0) fL Gran % 53.1 (36.0-66.0) % Immature Gran % (Auto) 0.3 (0.00-0.4) % Nucleat RBC Rel Count 0.0 (0.00-0.1) % Eos # (Auto) 0 (0-0.5) x10^3/uL Immature Gran # (Auto) 0.02 (0.00-0.03) x10^3u/L Absolute Lymphs (auto) 2.84 (1.0-4.6) x10^3/uL Absolute Monos (auto) 0.72 (0.0-1.3) x10^3/uL Absolute Nucleated RBC 0.00 (0.00-0.01) x10^3u/L Lymphocytes % 36.9 (24.0-44.0) % Monocytes % 9.4 (0.0-12.0) % Eosinophils % 0.0 (0.00-5.0) % Basophils % 0.3 (0.0-0.4) % Absolute Granulocytes 4.10 (1.4-6.9) x10^3/uL Basophils # 0.02 (0-0.4) x10^3/uL D-Dimer (0.0-0.50) mg/L Sodium 137 (137-145) mmol/L Potassium 3.3 L (3.5-5.1) mmol/L Chloride 103 (98-107) mmol/L Carbon Dioxide 28 (22-30) mmol/L Anion Gap 9.1 (5-15) MEQ/L BUN 10 (9-20) mg/dL Creatinine 1.07 (0.66-1.25) mg/dL Estimated GFR > 60.0 ML/MIN Glucose 118 H (74-106) mg/dL Lactic Acid (0.4-2.0) Calcium 8.2 L (8.4-10.2) mg/dL Total Bilirubin 0.20 (0.2-1.3) mg/dL AST 27 (17-59) U/L ALT 31 (0-50) U/L Alkaline Phosphatase 79 (38-126) U/L Troponin I < 0.012 (0.000-0.034) ng/mL NT-Pro-B Natriuret Pep 258 (0-450) pg/mL Serum Total Protein 5.9 L (6.3-8.2) g/dL Albumin 3.3 L (3.5-5.0) g/dL Lipase 31 (23-300) U/L Urinalys Dipstick Clnc Urine Color (YELLOW) Urine Appearance (CLEAR) Urine pH (5-6) Ur Specific [place] (1.005-1.025) POC Urine Protein Conf (Negative) Urine Ketones (NEGATIVE) Urine Nitrite (NEGATIVE) Urine Bilirubin (NEGATIVE) Urine Urobilinogen (0-1) mg/dL Urine Leukocytes (NEGATIVE) Urine WBC (Auto) (0-5) /HPF Urine RBC (Auto) (0-2) /HPF U Epithel Cells (Auto) (FEW) /HPF Urine Bacteria (Auto) (NEGATIVE) /HPF Urine RBC (0-5) Laron/ul Urine Mucus (Auto) (NEGATIVE) /HPF Ur Culture Indicated? Urine Glucose (NEGATIVE) mg/dL - Progress Progress: improved, re-examined Air Movement: good Progress Note: 07/07/22 23:[address] Shell and Pt and all agree best to place in on obs for cardiac rule out and then refer for GI / Esoph w/u outpt. Blood Culture(s) Obtained: No Antibiotics given: No Discussed with : Alvin Will see patient in: hospital (observation) Counseled pt/family regarding: lab results, diagnosis, need for follow-up, rad results - Departure Departure Disposition: Observation Clinical Impression: Chest pain, Esophageal abnormality/Esophagitis, Right Upper Lobe Pulmonary condition Condition: Good Critical Care Time: No Referrals: SUNITHA BENSON [Primary Care Provider] - Follow up/PCP as directed
[2022-07-07] MEDS ORDERED: Pepcid 20 MG VIAL IV ONE ×2 (20:17→20:23)
[2022-07-07] MEDS ORDERED: PROTONIX 40 MG IV IV ONE ×2 (20:17→20:23)
[2022-07-07] MEDS ORDERED: BABY ASPIRIN 81 MG CHEW PO ONE (20:19)
[2022-07-07] MEDS ORDERED: Nitrostat 0.4 MG (ED) SL ONE ×2 (20:19→20:23)
[2022-07-07] MEDS ORDERED: Sodium Chloride 0.9% 1000 ML 1,000 ML ONE (20:23)
[2022-07-07] MEDS ORDERED: BABY ASPIRIN 81 MG CHEW ONE (20:23)
[2022-07-07 20:25] LABS: Basophil (Absolute #) 0.02 x10^3/uL (0-0.4); Eosinophil (Absolute #) 0 x10^3/uL (0-0.5); Hematocrit 40.9 % (42-50); Hemoglobin 13.9 g/dL (12.5-18.0); Lymphocyte (Absolute #) 2.84 x10^3/uL (1.0-4.6); Lymphocytes % 36.9 % (24.0-44.0); Mean Cell Volume 87.2 fL (78-100); Mean Corpuscular Hemoglobin 29.6 pg (26-32); Mean Platelet Volume 10.1 fL (7.5-11.0); Monocyte (Absolute #) 0.72 x10^3/uL (0.0-1.3); Monocytes % 9.4 % (0.0-12.0); Neutrophil % 53.1 % (36.0-66.0); Platelet Count 239 x10^3/uL (150-450); Red Blood Count 4.69 x10^6/uL (4.1-5.6); White Blood Count 7.7 x10^3/uL (4.0-10.5)
[2022-07-07] MEDS ORDERED: Sodium Chloride 0.9% 1000 ML 1,000 ML IV SCH (20:30)
[2022-07-07 20:41] LABS: ALBUMIN 3.3 g/dL (3.5-5.0); ALKALINE PHOSPHATASE 79 U/L (38-126); ANION GAP 9.1 MEQ/L (5-15); BLOOD UREA NITROGEN 10 mg/dL (9-20); CHLORIDE 103 mmol/L (98-107); Calcium 8.2 mg/dL (8.4-10.2); Carbon Dioxide 28 mmol/L (22-30); Creatinine 1 1.07 mg/dL (0.66-1.25); EST GLOMERULAR FILTRATION RATE > 60.0 ML/MIN; Glucose 118 mg/dL (74-106); LIPASE 31 U/L (23-300); NT PRO BNP 258 pg/mL (0-450); Potassium 3.3 mmol/L (3.5-5.1); SGOT/AST 27 U/L (17-59); SGPT/ALT 31 U/L (0-50); SODIUM 137 mmol/L (137-145); Total Protein 5.9 g/dL (6.3-8.2)
--- NOTE | 2022-07-07 20:56 | XRAY ---
Indication: Chest pain. Comparison: March 15, 2021 Portable apical lordotic chest again demonstrates normal heart, lungs, and bony thorax with incidental tiny left base calcified granuloma.
[2022-07-07 21:23] LABS: Appearance CLEAR (CLEAR); Bilirubin NEGATIVE (NEGATIVE); Dipstick done @ ? MAIN LAB; Glucose NEGATIVE (NEGATIVE); Ketones NEGATIVE (NEGATIVE); Mucus SLIGHT /HPF (NEGATIVE); Nitrite NEGATIVE (NEGATIVE); Protein,Urine Dip NEGATIVE (Negative); RBC NEGATIVE Ery/ul (0-5); Urobilinogen 0.2 mg/dL (0-1)
[2022-07-07 21:24] LABS: Urine Cultured Indicated? NO
[2022-07-08] MEDS ORDERED: MORPHINE SULFATE 4 MG INJ IV PRN (01:36)
[2022-07-08] MEDS ORDERED: MAALOX ES 30 ML UNIT DOSE PO PRN (01:36)
[2022-07-08] MEDS ORDERED: HUMULIN R SQ PRN (01:36)
[2022-07-08] MEDS ORDERED: MILK OF MAGNESIA 30 ML PO PRN (01:36)
[2022-07-08] MEDS ORDERED: Senokot-S Tablet PO PRN (01:36)
[2022-07-08] MEDS ORDERED: TYLENOL 325 MG PO PRN ×2 (01:36)
[2022-07-08] MEDS ORDERED: DUONEB 0.5-3 MG/3 ml Neb IH PRN (01:36)
[2022-07-08] MEDS ORDERED: Zofran 4 MG/2 ML VIAL IV PRN ×2 (01:36)
[2022-07-08] MEDS ORDERED: LYRICA 100MG PO ONE (02:22)
[2022-07-08] MEDS ORDERED: Robaxin PO ONE (02:23)
[2022-07-08] MEDS ORDERED: NON-FORMULARY ITEM PO SCH (02:37)
[2022-07-08] MEDS: DOXEPIN HCL PO SCH ×2 (02:50→14:39)
[2022-07-08] MEDS: Sodium Chloride 0.9% 1000 ML 1,000 ML IV SCH (03:00)
[2022-07-08 05:05] LABS: Absolute Neutrophil Ct (ANC) 2.14 x10^3/uL (1.4-6.9); Basophil (Absolute #) 0.02 x10^3/uL (0-0.4); Eosinophil (Absolute #) 0 x10^3/uL (0-0.5); Hematocrit 41.3 % (42-50); Hemoglobin 13.7 g/dL (12.5-18.0); Lymphocyte (Absolute #) 2.49 x10^3/uL (1.0-4.6); Lymphocytes % 48.9 % (24.0-44.0); Mean Cell Volume 88.6 fL (78-100); Mean Corpuscular Hemoglobin 29.4 pg (26-32); Mean Corpuscular Hgb Concent. 33.2 g/dL (32-36); Monocyte (Absolute #) 0.42 x10^3/uL (0.0-1.3); Monocytes % 8.3 % (0.0-12.0); Platelet Count 239 x10^3/uL (150-450); Red Blood Count 4.66 x10^6/uL (4.1-5.6); Red Cell Distribution Width 13.2 % (11.5-14.0); White Blood Count 5.1 x10^3/uL (4.0-10.5)
[2022-07-08 05:37] LABS: ALKALINE PHOSPHATASE 73 U/L (38-126); ANION GAP 5.7 MEQ/L (5-15); BLOOD UREA NITROGEN 10 mg/dL (9-20); CHLORIDE 102 mmol/L (98-107); Calcium 7.8 mg/dL (8.4-10.2); Carbon Dioxide 31 mmol/L (22-30); Cholesterol 137 mg/dL (50-200); Creatinine 1 1.09 mg/dL (0.66-1.25); EST GLOMERULAR FILTRATION RATE > 60.0 ML/MIN; Glucose 109 mg/dL (74-106); HDL CHOLESTEROL 26 mg/dL (40-60); LDL, DIRECT 79 mg/dL (30-100); Potassium 3.7 mmol/L (3.5-5.1); Risk Ratio 5.2; SGOT/AST 23 U/L (17-59); SGPT/ALT 28 U/L (0-50); SODIUM 135 mmol/L (137-145); TRIGLYCERIDE 237 mg/dL (30-150); Total Protein 5.6 g/dL (6.3-8.2)
[2022-07-08] MEDS: Carafate 1 GM PO SCH ×3 (06:09→17:25)
[2022-07-08] MEDS: NITRO-BID 2% UD PACKETS TOP SCH ×2 (06:09→15:22)
--- NOTE | 2022-07-08 08:09 | XRAY ---
Indication: Chest pain and short of breath. Elevated d-dimer. Multiple contiguous axial images obtained through the chest using 100 cc Isovue 370 contrast and PE protocol. Comparison: None Adequate opacification of the pulmonary arteries to include the lobar and segmental branches. No pulmonary embolus. Heart not enlarged. Aorta is normal in course and caliber. No pathologic mediastinal/hilar lymphadenopathy. Small hiatal hernia. Visualized esophagus is moderately fluid distended with circumferential wall thickening favoring reflux esophagitis. Lungs are inflated. Mild bilateral dependent atelectasis. Incidental tiny lingula calcified granuloma. Bony thorax intact. Limited upper abdomen demonstrates moderately food/fluid distended stomach and mild fatty liver. Impression: 1. Negative for pulmonary embolus. 2. Small hiatal hernia with mild fluid distended esophagus and esophageal wall thickening. Rule out reflux esophagitis. 3. Incidental fatty liver and old granulomatous disease. Comment: Preliminary interpretation made by C. No critical discrepancy.
[2022-07-08] MEDS: Zithromax 500 MG/ 250 ML NaCl Premix 500 MG/250 ML IVPB IV SCH (08:32)
[2022-07-08] MEDS ORDERED: LYRICA 150MG PO SCH (10:00)
[2022-07-08] MEDS ORDERED: Robaxin PO SCH (10:00)
[2022-07-08] MEDS ORDERED: Narcan 0.4 MG/ML IV ONE (11:41)
[2022-07-08] MEDS ORDERED: Narcan 0.4 MG/ML IV PRN (12:05)
[2022-07-08] MEDS: Pepcid 20 MG VIAL IV SCH (12:12)
[2022-07-08] MEDS: PATIENT OWN MEDICATION PO SCH ×2 (14:39→14:40)
--- NOTE | 2022-07-08 17:14 | PCM.HP ---
History of Present Illness - Chief Complaint Chief Complaint: elevated d-dimer, chest pain History of Present Illness: is a 31 year old male pt with no local MD who was admitted through ER with CP and esophagitis. He is a poor historian. He has had vomiting and abd pain approx one month, with hematemesis at times. Has not had workup yet. He was sweating at work yesterday with substernal 6/10 chest pain, 4/10 RUQ pain and palpitations so came to ER. Was found to have HR 113 initially, severe CP, EKG wtihout acute changes and troponin neg. CT chest showed esophageal thickening, question of esophagitis, so he was admitted for CP r/o and observation. Was given nitro (with partial relief), pantoprazole, zithromax, and carafate. Pt takes pain meds from Dr. Jacob including nucynta and gabapentin. He brought 2 nucynta with him in an Altoids container and was asking the nurse about using them. She stated he would have to have meds in the medicine bottle with his name and info on it. When next she saw the Altoids container, the pills were gone. Pt had an episode of severe somnolence where the top half of his body was hanging off the bed toward the floor and the nurse had to shake him 6-7 times to get him to wake up and answer her. Pt wakes after I call his name several times, then tell him "I need you to wake up." He then answers my questions. - Review of Systems Cardiac: Chest Pain, Palpitations Abdominal/Gastrointestinal: Abdominal Pain, Vomiting, Hematemesis Musculoskeletal: Arthralgias Psychological: Anxiety Endocrine: Excessive Sweating Immunological/Allergic: Eczema All Other Systems: Reviewed and Negative Medications & Allergies Home Medications: Home Medication List Pregabalin [Lyrica] 300 mg PO BID 03/15/21 [History Confirmed 07/08/22] Tapentadol HCl [Nucynta] 100 mg PO QID 03/15/21 [History Confirmed 07/08/22] Doxepin HCl 10 mg PO TID 07/08/22 [History Confirmed 07/08/22] methocarbamoL [Methocarbamol] 750 mg PO BID 07/08/22 [History Confirmed 07/08/22] Allergies/Adverse Reactions: Allergies Allergy/AdvReac Type Severity Reaction Status Date / Time No Known Drug Allergies Allergy Verified 07/07/22 20:14 - Past Medical History Past Medical History: Yes Neurological History: No Pertinent History ENT History: No Pertinent History Cardiac History: No Pertinent History Respiratory History: No Pertinent History Endocrine Medical History: No Pertinent History Musculoskelatal History: Arthritis, Fractures GI Medical History: Hernia History: No Pertinent History Pyscho-Social History: Anxiety, Depression Male Reproductive Disorders: No Pertinent History Comment: ALLERGIES, ECZEMA - Past Surgical History Past Surgical History: Yes Neuro Surgical History: No Pertinent History Cardiac History: No Pertinent History Respiratory Surgery: No Pertinent History GI Surgical History: Hernia Repair Genitourinary Surgical Hx: No Pertinent History Musculskeletal Surgical Hx: No Pertinent History Male Surgical History: No Pertinent History Other Surgical History: TUBES IN EARS - Social History Smoking Status: Current every day smoker How long have you smoked: 11 yrs Exposure to second hand smoke: Yes Alcohol: Rarely Drug Use: none Significant Family History: no pertinent family hx - Physical Exam Vital Signs: Vital Signs - 24 hr Temp Pulse Resp BP Pulse Ox 07/08/22 16:00 98.6 F 83 10 L 139/83 96 07/08/22 11:39 98.2 F 100 H 15 109/56 95 07/08/22 07:40 98.6 F 93 H 16 104/57 90 L 07/08/22 03:59 97.8 F 97 H 18 129/77 95 07/08/22 01:46 97.5 F 100 H 22 142/89 97 07/08/22 01:19 93 H 14 120/90 97 07/08/22 00:24 95 H 16 104/73 97 07/07/22 23:42 96 07/07/22 23:00 91 H 16 114/78 98 07/07/22 21:16 109 H 24 127/75 97 07/07/22 20:02 97.7 F 113 H 16 130/90 97 General Appearance: no apparent distress, other (somnolent initially, then alert and answering questions) Neurologic Exam: alert, cooperative Eye Exam: eyes nml inspection Ears, Nose, Throat Exam: moist mucous membranes Neck Exam: normal inspection, non-tender, supple, No lymphadenopathy, No subcutaneous emphysema, No thyromegaly Respiratory Exam: normal breath sounds, lungs clear, No crackles/rales, No rhonchi, No wheezing Cardiovascular Exam: regular rate/rhythm, normal heart sounds, No murmur Gastrointestinal/Abdomen Exam: soft, normal bowel sounds, No tenderness, No distention, No mass, No guarding, No rebound Back Exam: normal inspection, No CVA tenderness, No rash Extremity Exam: normal inspection, swelling (1+ LE edema) Skin Exam: normal color, warm, dry, No rash Results - Labs Lab/Micro Results: Lab Results-Last 24 Hours 07/07/22 07/07/22 07/07/22 Range/Units 20:17 20:20 20:20 WBC 7.7 (4.0-10.5) x10^3/uL RBC 4.69 (4.1-5.6) x10^6/uL Hgb 13.9 (12.5-18.0) g/dL Hct 40.9 L (42-50) % MCV 87.2 (78-100) fL MCH 29.6 (26-32) pg MCHC 34.0 (32-36) g/dL RDW 13.0 (11.5-14.0) % Plt Count 239 (150-450) x10^3/uL MPV 10.1 (7.5-11.0) fL Gran % 53.1 (36.0-66.0) % Immature Gran % (Auto) 0.3 (0.00-0.4) % Nucleat RBC Rel Count 0.0 (0.00-0.1) % Eos # (Auto) 0 (0-0.5) x10^3/uL Immature Gran # (Auto) 0.02 (0.00-0.03) x10^3u/L Absolute Lymphs (auto) 2.84 (1.0-4.6) x10^3/uL Absolute Monos (auto) 0.72 (0.0-1.3) x10^3/uL Absolute Nucleated RBC 0.00 (0.00-0.01) x10^3u/L Lymphocytes % 36.9 (24.0-44.0) % Monocytes % 9.4 (0.0-12.0) % Eosinophils % 0.0 (0.00-5.0) % Basophils % 0.3 (0.0-0.4) % Absolute Granulocytes 4.10 (1.4-6.9) x10^3/uL Basophils # 0.02 (0-0.4) x10^3/uL D-Dimer (0.0-0.50) mg/L Sodium 137 (137-145) mmol/L Potassium 3.3 L (3.5-5.1) mmol/L Chloride 103 (98-107) mmol/L Carbon Dioxide 28 (22-30) mmol/L Anion Gap 9.1 (5-15) MEQ/L BUN 10 (9-20) mg/dL Creatinine 1.07 (0.66-1.25) mg/dL Estimated GFR > 60.0 ML/MIN Glucose 118 H (74-106) mg/dL Hemoglobin A1c (4.5-6.0) % Lactic Acid (0.4-2.0) Calcium 8.2 L (8.4-10.2) mg/dL Total Bilirubin 0.20 (0.2-1.3) mg/dL AST 27 (17-59) U/L ALT 31 (0-50) U/L Alkaline Phosphatase 79 (38-126) U/L Troponin I < 0.012 (0.000-0.034) ng/mL NT-Pro-B Natriuret Pep 258 (0-450) pg/mL Serum Total Protein 5.9 L (6.3-8.2) g/dL Albumin 3.3 L (3.5-5.0) g/dL Triglycerides (30-150) mg/dL Cholesterol (50-200) mg/dL LDL Cholesterol (30-100) mg/dL HDL Cholesterol (40-60) mg/dL Heart Disease Risk Ratio Lipase 31 (23-300) U/L Urinalys Dipstick Clnc Urine Color (YELLOW) Urine Appearance (CLEAR) Urine pH (5-6) Ur Specific [place] (1.005-1.025) POC Urine Protein Conf (Negative) Urine Ketones (NEGATIVE) Urine Nitrite (NEGATIVE) Urine Bilirubin (NEGATIVE) Urine Urobilinogen (0-1) mg/dL Urine Leukocytes (NEGATIVE) Urine WBC (Auto) (0-5) /HPF Urine RBC (Auto) (0-2) /HPF U Epithel Cells (Auto) (FEW) /HPF Urine Bacteria (Auto) (NEGATIVE) /HPF Urine RBC (0-5) [place]/ul Urine Mucus (Auto) (NEGATIVE) /HPF Ur Culture Indicated? Urine Glucose (NEGATIVE) mg/dL 07/07/22 07/07/22 07/07/22 Range/Units 20:20 20:27 21:20 WBC (4.0-10.5) x10^3/uL RBC (4.1-5.6) x10^6/uL Hgb (12.5-18.0) g/dL Hct (42-50) % MCV (78-100) fL MCH (26-32) pg MCHC (32-36) g/dL RDW (11.5-14.0) % Plt Count (150-450) x10^3/uL MPV (7.5-11.0) fL Gran % (36.0-66.0) % Immature Gran % (Auto) (0.00-0.4) % Nucleat RBC Rel Count (0.00-0.1) % Eos # (Auto) (0-0.5) x10^3/uL Immature Gran # (Auto) (0.00-0.03) x10^3u/L Absolute Lymphs (auto) (1.0-4.6) x10^3/uL Absolute Monos (auto) (0.0-1.3) x10^3/uL Absolute Nucleated RBC (0.00-0.01) x10^3u/L Lymphocytes % (24.0-44.0) % Monocytes % (0.0-12.0) % Eosinophils % (0.00-5.0) % Basophils % (0.0-0.4) % Absolute Granulocytes (1.4-6.9) x10^3/uL Basophils # (0-0.4) x10^3/uL D-Dimer 0.66 H* (0.0-0.50) mg/L Sodium (137-145) mmol/L Potassium (3.5-5.1) mmol/L Chloride (98-107) mmol/L Carbon Dioxide (22-30) mmol/L Anion Gap (5-15) MEQ/L BUN (9-20) mg/dL Creatinine (0.66-1.25) mg/dL Estimated GFR ML/MIN Glucose (74-106) mg/dL Hemoglobin A1c (4.5-6.0) % Lactic Acid 1.5 (0.4-2.0) Calcium (8.4-10.2) mg/dL Total Bilirubin (0.2-1.3) mg/dL AST (17-59) U/L ALT (0-50) U/L Alkaline Phosphatase (38-126) U/L Troponin I (0.000-0.034) ng/mL NT-Pro-B Natriuret Pep (0-450) pg/mL Serum Total Protein (6.3-8.2) g/dL Albumin (3.5-5.0) g/dL Triglycerides (30-150) mg/dL Cholesterol (50-200) mg/dL LDL Cholesterol (30-100) mg/dL HDL Cholesterol (40-60) mg/dL Heart Disease Risk Ratio Lipase (23-300) U/L Urinalys Dipstick Clnc MAIN LAB Urine Color YELLOW (YELLOW) Urine Appearance CLEAR (CLEAR) Urine pH 6.0 (5-6) Ur Specific [place] 1.020 (1.005-1.025) POC Urine Protein Conf NEGATIVE (Negative) Urine Ketones NEGATIVE (NEGATIVE) Urine Nitrite NEGATIVE (NEGATIVE) Urine Bilirubin NEGATIVE (NEGATIVE) Urine Urobilinogen 0.2 (0-1) mg/dL Urine Leukocytes NEGATIVE (NEGATIVE) Urine WBC (Auto) NONE (0-5) /HPF Urine RBC (Auto) NONE (0-2) /HPF U Epithel Cells (Auto) NONE (FEW) /HPF Urine Bacteria (Auto) NONE (NEGATIVE) /HPF Urine RBC NEGATIVE (0-5) [place]/ul Urine Mucus (Auto) SLIGHT (NEGATIVE) /HPF Ur Culture Indicated? NO Urine Glucose NEGATIVE (NEGATIVE) mg/dL 07/08/22 07/08/22 07/08/22 Range/Units 00:30 04:40 04:40 WBC 5.1 (4.0-10.5) x10^3/uL RBC 4.66 (4.1-5.6) x10^6/uL Hgb 13.7 (12.5-18.0) g/dL Hct 41.3 L (42-50) % MCV 88.6 (78-100) fL MCH 29.4 (26-32) pg MCHC 33.2 (32-36) g/dL RDW 13.2 (11.5-14.0) % Plt Count 239 (150-450) x10^3/uL MPV 10.0 (7.5-11.0) fL Gran % 42.0 (36.0-66.0) % Immature Gran % (Auto) 0.4 (0.00-0.4) % Nucleat RBC Rel Count 0.0 (0.00-0.1) % Eos # (Auto) 0 (0-0.5) x10^3/uL Immature Gran # (Auto) 0.02 (0.00-0.03) x10^3u/L Absolute Lymphs (auto) 2.49 (1.0-4.6) x10^3/uL Absolute Monos (auto) 0.42 (0.0-1.3) x10^3/uL Absolute Nucleated RBC 0.00 (0.00-0.01) x10^3u/L Lymphocytes % 48.9 H (24.0-44.0) % Monocytes % 8.3 (0.0-12.0) % Eosinophils % 0.0 (0.00-5.0) % Basophils % 0.4 (0.0-0.4) % Absolute Granulocytes 2.14 (1.4-6.9) x10^3/uL Basophils # 0.02 (0-0.4) x10^3/uL D-Dimer (0.0-0.50) mg/L Sodium (137-145) mmol/L Potassium (3.5-5.1) mmol/L Chloride (98-107) mmol/L Carbon Dioxide (22-30) mmol/L Anion Gap (5-15) MEQ/L BUN (9-20) mg/dL Creatinine (0.66-1.25) mg/dL Estimated GFR ML/MIN Glucose (74-106) mg/dL Hemoglobin A1c (4.5-6.0) % Lactic Acid (0.4-2.0) Calcium (8.4-10.2) mg/dL Total Bilirubin (0.2-1.3) mg/dL AST (17-59) U/L ALT (0-50) U/L Alkaline Phosphatase (38-126) U/L Troponin I < 0.012 < 0.012 (0.000-0.034) ng/mL NT-Pro-B Natriuret Pep (0-450) pg/mL Serum Total Protein (6.3-8.2) g/dL Albumin (3.5-5.0) g/dL Triglycerides (30-150) mg/dL Cholesterol (50-200) mg/dL LDL Cholesterol (30-100) mg/dL HDL Cholesterol (40-60) mg/dL Heart Disease Risk Ratio Lipase (23-300) U/L Urinalys Dipstick Clnc Urine Color (YELLOW) Urine Appearance (CLEAR) Urine pH (5-6) Ur Specific [place] (1.005-1.025) POC Urine Protein Conf (Negative) Urine Ketones (NEGATIVE) Urine Nitrite (NEGATIVE) Urine Bilirubin (NEGATIVE) Urine Urobilinogen (0-1) mg/dL Urine Leukocytes (NEGATIVE) Urine WBC (Auto) (0-5) /HPF Urine RBC (Auto) (0-2) /HPF U Epithel Cells (Auto) (FEW) /HPF Urine Bacteria (Auto) (NEGATIVE) /HPF Urine RBC (0-5) Lar[place]/ul Urine Mucus (Auto) (NEGATIVE) /HPF Ur Culture Indicated? Urine Glucose (NEGATIVE) mg/dL 07/08/22 07/08/22 Range/Units 04:40 04:40 WBC (4.0-10.5) x10^3/uL RBC (4.1-5.6) x10^6/uL Hgb (12.5-18.0) g/dL Hct (42-50) % MCV (78-100) fL MCH (26-32) pg MCHC (32-36) g/dL RDW (11.5-14.0) % Plt Count (150-450) x10^3/uL MPV (7.5-11.0) fL Gran % (36.0-66.0) % Immature Gran % (Auto) (0.00-0.4) % Nucleat RBC Rel Count (0.00-0.1) % Eos # (Auto) (0-0.5) x10^3/uL Immature Gran # (Auto) (0.00-0.03) x10^3u/L Absolute Lymphs (auto) (1.0-4.6) x10^3/uL Absolute Monos (auto) (0.0-1.3) x10^3/uL Absolute Nucleated RBC (0.00-0.01) x10^3u/L Lymphocytes % (24.0-44.0) % Monocytes % (0.0-12.0) % Eosinophils % (0.00-5.0) % Basophils % (0.0-0.4) % Absolute Granulocytes (1.4-6.9) x10^3/uL Basophils # (0-0.4) x10^3/uL D-Dimer (0.0-0.50) mg/L Sodium 135 L (137-145) mmol/L Potassium 3.7 (3.5-5.1) mmol/L Chloride 102 (98-107) mmol/L Carbon Dioxide 31 H (22-30) mmol/L Anion Gap 5.7 (5-15) MEQ/L BUN 10 (9-20) mg/dL Creatinine 1.09 (0.66-1.25) mg/dL Estimated GFR > 60.0 ML/MIN Glucose 109 H (74-106) mg/dL Hemoglobin A1c 5.03 (4.5-6.0) % Lactic Acid (0.4-2.0) Calcium 7.8 L (8.4-10.2) mg/dL Total Bilirubin 0.20 (0.2-1.3) mg/dL AST 23 (17-59) U/L ALT 28 (0-50) U/L Alkaline Phosphatase 73 (38-126) U/L Troponin I (0.000-0.034) ng/mL NT-Pro-B Natriuret Pep (0-450) pg/mL Serum Total Protein 5.6 L (6.3-8.2) g/dL Albumin 3.0 L (3.5-5.0) g/dL Triglycerides 237 H (30-150) mg/dL Cholesterol 137 (50-200) mg/dL LDL Cholesterol 79 (30-100) mg/dL HDL Cholesterol 26 L (40-60) mg/dL Heart Disease Risk Ratio 5.2 Lipase (23-300) U/L Urinalys Dipstick Clnc Urine Color (YELLOW) Urine Appearance (CLEAR) Urine pH (5-6) Ur Specific [place] (1.005-1.025) POC Urine Protein Conf (Negative) Urine Ketones (NEGATIVE) Urine Nitrite (NEGATIVE) Urine Bilirubin (NEGATIVE) Urine Urobilinogen (0-1) mg/dL Urine Leukocytes (NEGATIVE) Urine WBC (Auto) (0-5) /HPF Urine RBC (Auto) (0-2) /HPF U Epithel Cells (Auto) (FEW) /HPF Urine Bacteria (Auto) (NEGATIVE) /HPF Urine RBC (0-5) Lar[place]/ul Urine Mucus (Auto) (NEGATIVE) /HPF Ur Culture Indicated? Urine Glucose (NEGATIVE) mg/dL - Radiology Impressions Radiology Exams & Impressions: Radiology Procedures Category Date Time Status CHEST 1 VIEW (PORTABLE) Stat Exams 07/07/22 20:18 Completed CHEST WITH CONTRAST [CT] Stat Exams 07/07/22 20:54 Completed - Other Procedures and Tests Respiratory Therapy 07/08/22 14:29 Oxygen Nasal Cannula 2 lpm 07/09/22 05:00 EKG ROUTINE 07/10/22 05:00 EKG ROUTINE 07/11/22 05:00 EKG ROUTINE Assessment/Plan (1) Chest pain Current Visit: Yes Status: Resolved Qualifiers: Chest pain type: unspecified Qualified Code(s): R07.9 - Chest pain, unspecified Assessment & Plan: NE ruled out Code(s): R07.9 - CHEST PAIN, UNSPECIFIED (2) Esophagitis Current Visit: Yes Status: Acute Assessment & Plan: possible. On IV protonix, carafate, zithromax. Will consult for possible EGD tomorrow. Code(s): K20.90 - ESOPHAGITIS, UNSPECIFIED WITHOUT BLEEDING (3) Somnolence Current Visit: Yes Status: Resolved Assessment & Plan: Was better for me than the nurse. Suspect medication misuse. If recurrent, would use narcan. (4) Osteoarthritis Current Visit: Yes Status: Chronic Qualifiers: Osteoarthritis location: unspecified site Osteoarthritis type: unspecified Qualified Code(s): M19.90 - Unspecified osteoarthritis, unspecified site Code(s): M19.90 - UNSPECIFIED OSTEOARTHRITIS, UNSPECIFIED SITE (5) Dyslipidemia Current Visit: Yes Status: Chronic Code(s): E78.5 - HYPERLIPIDEMIA, UNSPECIFIED
[2022-07-08] MEDS ORDERED: DOXEPIN HCL PO SCH (22:00)
[2022-07-08] MEDS ORDERED: PROTONIX 40 MG IV IV SCH (22:00)
[2022-07-09] MEDS: Carafate 1 GM PO SCH ×3 (00:32→12:47)
[2022-07-09] MEDS: NITRO-BID 2% UD PACKETS TOP SCH ×3 (00:32→12:50)
[2022-07-09] MEDS: Pepcid 20 MG VIAL IV SCH ×2 (00:34→08:22)
[2022-07-09] MEDS: Sodium Chloride 0.9% 1000 ML 1,000 ML IV SCH ×3 (03:45→14:35)
[2022-07-09 04:56] LABS: Absolute Neutrophil Ct (ANC) 2.94 x10^3/uL (1.4-6.9); Basophil (Absolute #) 0.02 x10^3/uL (0-0.4); Eosinophil % 1.9 % (0.00-5.0); Eosinophil (Absolute #) 0.11 x10^3/uL (0-0.5); Hematocrit 41.6 % (42-50); Lymphocyte (Absolute #) 2.14 x10^3/uL (1.0-4.6); Lymphocytes % 37.1 % (24.0-44.0); Mean Cell Volume 86.8 fL (78-100); Mean Corpuscular Hemoglobin 29.2 pg (26-32); Mean Corpuscular Hgb Concent. 33.7 g/dL (32-36); Mean Platelet Volume 10.2 fL (7.5-11.0); Monocyte (Absolute #) 0.54 x10^3/uL (0.0-1.3); Monocytes % 9.4 % (0.0-12.0); Platelet Count 240 x10^3/uL (150-450); Red Blood Count 4.79 x10^6/uL (4.1-5.6); Red Cell Distribution Width 12.8 % (11.5-14.0); White Blood Count 5.8 x10^3/uL (4.0-10.5)
[2022-07-09 05:28] LABS: ANION GAP 6.3 MEQ/L (5-15); BLOOD UREA NITROGEN 8 mg/dL (9-20); CHLORIDE 108 mmol/L (98-107); Calcium 8.3 mg/dL (8.4-10.2); Carbon Dioxide 28 mmol/L (22-30); Creatinine 1 0.82 mg/dL (0.66-1.25); EST GLOMERULAR FILTRATION RATE > 60.0 ML/MIN; Glucose 97 mg/dL (74-106); Potassium 3.6 mmol/L (3.5-5.1); SODIUM 139 mmol/L (137-145)
[2022-07-09] MEDS: Zithromax 500 MG/ 250 ML NaCl Premix 500 MG/250 ML IVPB IV SCH (07:56)
--- NOTE | 2022-07-09 09:48 | PCM.DS ---
Discharge Summary Date of Admission: 07/08/22 01:34 Admitting Physician: ANT MELTON Consults: Consults on Case 07/08/22 17:21 Consult Surgery ROUTINE 07/09/22 06:51 Consult Surgery ROUTINE Primary Care Provider: SUNITHA BENSON Allergies Allergies No Known Drug Allergies Allergy (Verified 07/07/22 20:14) Hospital Summary - Hospital Course Hospital Course: Pt is a 32 yo with arthritis on chronic opiates who came to ER with vomiting and chest pain. Ruled out for [place], but he has 1 mo hx of vomiting and abd pain; he was found to have thickened esophagus on CT scan so is scheduled for EGD today. Yesterday after admission he was found to be somnolent by nurse; woke up and spoke with me, but is vastly more alert today (wnl). He denies any medication misuse, although nurse thought yesterday that he had taken 2 nucynta that he had with him. He denies any pain this morning. Pt will be discharged to home after his EGD. F/u with PCP in 1 week. - Vitals & Intake/Output Vital Signs: Vital Signs Temperature 97.5 F 07/09/22 08:00 Pulse Rate 84 07/09/22 08:00 Respiratory Rate 15 07/09/22 08:00 Blood Pressure 120/73 07/09/22 08:00 O2 Sat by Pulse Oximetry 92 L 07/09/22 08:00 Intake & Output: Intake & Output 07/06/22 07/07/22 07/08/22 07/09/22 11:59 11:59 11:59 11:59 Intake Total 600 1901 Output Total 400 Balance 600 1501 Weight 114.8 kg - Lab Result Diagrams: 07/09/22 04:35 07/09/22 04:35 Lab Results-Last 24 Hrs: Lab Results-Last 24 Hours 07/09/22 07/09/22 Range/Units 04:35 04:35 WBC 5.8 (4.0-10.5) x10^3/uL RBC 4.79 (4.1-5.6) x10^6/uL Hgb 14.0 (12.5-18.0) g/dL Hct 41.6 L (42-50) % MCV 86.8 (78-100) fL MCH 29.2 (26-32) pg MCHC 33.7 (32-36) g/dL RDW 12.8 (11.5-14.0) % Plt Count 240 (150-450) x10^3/uL MPV 10.2 (7.5-11.0) fL Gran % 51.0 (36.0-66.0) % Immature Gran % (Auto) 0.3 (0.00-0.4) % Nucleat RBC Rel Count 0.0 (0.00-0.1) % Eos # (Auto) 0.11 (0-0.5) x10^3/uL Immature Gran # (Auto) 0.02 (0.00-0.03) x10^3u/L Absolute Lymphs (auto) 2.14 (1.0-4.6) x10^3/uL Absolute Monos (auto) 0.54 (0.0-1.3) x10^3/uL Absolute Nucleated RBC 0.00 (0.00-0.01) x10^3u/L Lymphocytes % 37.1 (24.0-44.0) % Monocytes % 9.4 (0.0-12.0) % Eosinophils % 1.9 (0.00-5.0) % Basophils % 0.3 (0.0-0.4) % Absolute Granulocytes 2.94 (1.4-6.9) x10^3/uL Basophils # 0.02 (0-0.4) x10^3/uL Sodium 139 (137-145) mmol/L Potassium 3.6 (3.5-5.1) mmol/L Chloride 108 H (98-107) mmol/L Carbon Dioxide 28 (22-30) mmol/L Anion Gap 6.3 (5-15) MEQ/L BUN 8 L (9-20) mg/dL Creatinine 0.82 (0.66-1.25) mg/dL Estimated GFR > 60.0 ML/MIN Glucose 97 (74-106) mg/dL Calcium 8.3 L (8.4-10.2) mg/dL - Radiology Exams Ordered Rad Exams-Entire Visit: Radiology Procedures Category Date Time Status CHEST 1 VIEW (PORTABLE) Stat Exams 07/07/22 20:18 Completed CHEST WITH CONTRAST [CT] Stat Exams 07/07/22 20:54 Completed - Procedures and Test Procedures and Tests throughout Hospitalization: Therapy Orders & Screens 07/08/22 01:36 Respiratory Therapy Consult ROUTINE Comment: Reason For Exam: 07/08/22 04:00 EKG ROUTINE Comment: Diagnosis: elevated d-dimer, chest pain 07/08/22 14:29 Oxygen Nasal Cannula 2 lpm Comment: Diagnosis: elevated d-dimer, chest pain 07/09/22 05:00 EKG ROUTINE Comment: Diagnosis: elevated d-dimer, chest pain 07/10/22 05:00 EKG ROUTINE Comment: Diagnosis: elevated d-dimer, chest pain 07/11/22 05:00 EKG ROUTINE Comment: Diagnosis: elevated d-dimer, chest pain Discharge Exam General Appearance: no apparent distress, alert Neurologic Exam: oriented x 3, cooperative, normal mood/affect Eye Exam: eyes nml inspection Ears, Nose, Throat Exam: moist mucous membranes Neck Exam: normal inspection Final Diagnosis/Problem List - Final Discharge Diagnosis/Problem (1) Chest pain Current Visit: Yes Status: Resolved Code(s): R07.9 - CHEST PAIN, UNSPECIFIED (2) Esophagitis Current Visit: Yes Status: Acute Code(s): K20.90 - ESOPHAGITIS, UNSPECIFIED WITHOUT BLEEDING (3) Somnolence Current Visit: Yes Status: Resolved (4) Osteoarthritis Current Visit: Yes Status: Chronic Code(s): M19.90 - UNSPECIFIED OSTEOARTHRITIS, UNSPECIFIED SITE (5) Dyslipidemia Current Visit: Yes Status: Chronic Code(s): E78.5 - HYPERLIPIDEMIA, U NSPECIFIED - Discharge Disposition: Home, Self-Care Condition: Good Prescriptions: No Action Tapentadol HCl [Nucynta] 100 mg PO QID Pregabalin [Lyrica] 300 mg PO BID methocarbamoL [Methocarbamol] 750 mg PO BID Doxepin HCl 10 mg PO TID Follow up with: LIVAN KEY [COURTESY STAFF] - SUNITHA BENSON [Primary Care Provider] -
[2022-07-09] MEDS ORDERED: Xylocaine-Mpf 2% 5 Ml Vial ONE (15:34)
[2022-07-09] MEDS ORDERED: Versed 2 MG/2 ML Injection ONE (15:34)
[2022-07-09] MEDS ORDERED: DIPRIVAN 200 MG/20 ML IV ONE (15:34)
[2022-07-09 17:06] VITALS: BP 143/94; PULSE 81; O2SAT 94
--- NOTE | 2022-07-10 07:47 | CONS ---
CONSULT DATE: 07/09/2022 HISTORY: This patient is seen for Dr. 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 A 31-year-old with chest pain, normal D-dimer. He has not had an upper endoscopy. He had some vomiting and hematemesis in the past. He has substernal chest pain. CT chest showed a little bit of esophageal thickening. Dr. Betancur was consulted per the physician for possible upper endoscopy. The patient has been seen by Dr. Jacob for chronic pain in his knees, hip and back, he said. PAST MEDICAL HISTORY: Chronic pain, anxiety, depression, arthritis in the past. PAST SURGICAL HISTORY: Tubes in the ears in the past. Hernia repair in the past. HOME MEDICATIONS: Nucynta, Methocarbamol, doxepin, omeprazole, Lyrica. ALLERGIES: NKDA. FAMILY HISTORY: Negative in regards to this problem. SOCIAL HISTORY: Smoker. REVIEW OF SYSTEMS: Fourteen systems reviewed. Pertinent for multiple medical problems as noted above. Chronic pain followed by Dr. Jacob apparently. PHYSICAL EXAMINATION: GENERAL: No acute distress. HEENT: Sclera nonicteric. NECK: No JVD. CHEST: Equal excursion, nonlabored breathing. CVS: Regular rate and rhythm. ABDOMEN: Soft. He does not appear to have any tenderness in epigastrium now. EXTREMITIES: No cyanosis. NEURO: Alert, moving extremities grossly symmetrically. PSYCH: Appropriate mood and affect. IMPRESSION: Substernal pain with history of thickening of the esophagus on CT chest. Question whether some esophagitis. I feel he would benefit from upper endoscopy. Risks and benefits explained in detail including but not limited to bleeding or infection, risk of bowel injury or perforation possibly requiring open procedure, risk of missed or nondiagnosis or incomplete exam, general risk of anesthesia or sedation, risk of aspiration. He said he has not had anything to eat all day, will see if the OR has time to have him in between cases.
--- NOTE | 2022-07-10 08:32 | OP ---
SURGERY DATE/TIME: 07/09/2022 1610 PREOPERATIVE DIAGNOSES: 1) Esophageal thickening. 2) History of chest pain. POSTOPERATIVE DIAGNOSES: 1) Mild gastritis. 2) Moderate to severe erosive diffuse esophagitis. PROCEDURES: 1) EGD with cold biopsy of antrum for Helicobacter pylori. 2) Cold biopsy of esophagus. SURGEON: Dr. Bernabe Morris. ANESTHESIA: MAC. ESTIMATED BLOOD LOSS: Minimal. INDICATIONS: As noted above. This patient is seen for Dr. Nomi Betancur who was prn occupational therapist when the consult came in. He asked that I do EGD while I was down here doing some outpatient surgeries. Risks and benefits explained in detail and not limited to and consent obtained. DESCRIPTION OF PROCEDURE AND FINDINGS: The patient is taken to the endoscopy room. MAC anesthesia induced. Bite block positioned. Video gastroscope easily passed down the esophagus through the patent pylorus to the third portion of the duodenum. Third, second, first portion of duodenum grossly unremarkable. Scope pulled back to the antrum and had some minimal to mild gastritis. Cold biopsy taken to evaluate for Helicobacter pylori. On retroflex the gastroesophageal junction snug against the scope. No signs of any large hiatal hernia. Scope pulled back. Gastroesophageal junction about 40 cm. He had diffuse erosive esophagitis. Multiple cold biopsies taken. There was a little bit of fibrinous plaque on this esophagitis that extended a good 10 to 12 cm proximally to the mid esophagus. Multiple cold biopsies taken. No gross masses. Good hemostasis is noted. Multiple biopsies taken. The scope is withdrawn. There was no family available to discuss the findings with. I recommend that he stay on proton pump inhibitors and maybe consider twice a day for a week per his primary care provider. I will see him back in the office in a week or two to discuss the path. Otherwise continue medical management.
== END 2022-07-09 17:38 | disposition home or self-care (01) ==
LOC: ED 19:51 → MED SURG 07-08 01:34
PROVIDERS: ADMIT Family Medicine; ATTEND Family Medicine
DX: R07.9 Chest pain, unspecified (principal); K20.90 Esophagitis, unspecified without bleeding; R40.0 Somnolence; M19.90 Unspecified osteoarthritis, unspecified site; E78.5 Hyperlipidemia, unspecified; K22.89 Other specified disease of esophagus; K29.70 Gastritis, unspecified, without bleeding; Z79.899 Other long term (current) drug therapy; Z20.828 Contact with and (suspected) exposure to other viral communicable diseases; Z72.0 Tobacco use
CPT/HCPCS: 36000; 36415; 43239; 71045; 71260; 80048; 80053; 80061; 81015; 83036; 83605; 83690; 83721; 83880; 84484; 85025; 85379; 93005; 93268; 94762; 96374; 96375; 99284; G0378; J0456; J2250; J2270; J2704; A9270-GY

== ENCOUNTER 2022-08-08 04:07 | Emergency (ER) | payer BC ==
[2022-08-08] MEDS ORDERED: Augmentin 875-125 Tablet PO ONE ×2 (04:45→05:00)
[2022-08-08] MEDS ORDERED: TORAdol 30 mg Injection IM ONE (04:46)
[2022-08-08] MEDS ORDERED: Augmentin 875-125 Tablet ONE ×2 (04:51→05:02)
[2022-08-08] MEDS ORDERED: TORAdol 30 mg Injection ONE (04:51)
--- NOTE | 2022-08-08 04:52 | ERPHSYRPT ---
- History of Present Illness Time Seen by Provider: 08/08/22 04:20 Source: patient Exam Limitations: no limitations Patient Subjective Stated Complaint: pt states he has been having pain and swelling in his lt lower jaw since yesterday. states when he woke up today, he had increased pain and swelling. Triage Nursing Assessment: pt alert and oriented, answers questions approp. pt ambulatory with steady gait noted. respirations nonlabored. pt sweating, skin warm. poor denition noted with broken teeth to lt lower jaw, chewing in rt mouth. Physician History: 32-year-old male presents to our ED with complaints of left lower dental pain. Patient states pain started yesterday. This morning patient awoke with swelling to his left lower jaw. No trauma. No fever. No nausea vomiting or diaphoresis. Patient has poor dentition. No swelling of the floor of his mouth. Patient able to tolerate p.o. and oral secretions. Symptoms are mild to moderate in intensity. Mastication reproduces pain. Pain improved with rest. He voices no other complaints or concerns at this time. Portions of this note were created with voice recognition technology. There may be grammatical, spelling, punctuation or sound alike errors Timing/Duration: yesterday Severity: moderate Modifying Factors: Improves With: nothing Associated Symptoms: denies symptoms Allergies/Adverse Reactions: No Known Drug Allergies Allergy (Verified 08/08/22 04:27) Home Medications: Pregabalin [Lyrica] 300 mg PO BID 03/15/21 [History] Tapentadol HCl [Nucynta] 100 mg PO QID 03/15/21 [History] Doxepin HCl 10 mg PO TID 07/08/22 [History] methocarbamoL [Methocarbamol] 750 mg PO BID 07/08/22 [History] Hx Tetanus, Diphtheria Vaccination/Date Given: No (unknown) Hx Influenza Vaccination/Date Given: No Hx Pneumococcal Vaccination/Date Given: No Travel Risk - International Travel Have you traveled outside of the country in past 3 weeks: No - Coronavirus Screening Are you exhibiting any of the following symptoms?: No Close contact with a COVID-19 positive Pt in past 14-21 Days: No - Vaccine Status Have you recieved a Covid-19 vaccination: Yes 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[employer] - Vaccination Dates Date of 2cond Vaccination (if applicable): February 15, 2021 - Review of Systems Constitutional: No Symptoms, No Fever, No Chills Eyes: No Symptoms Ears, Nose, & Throat: No Symptoms Respiratory: No Symptoms, No Cough, No Dyspnea Cardiac: No Symptoms, No Chest Pain, No Edema, No Syncope Abdominal/Gastrointestinal: No Symptoms, No Abdominal Pain, No Nausea, No Vomiting, No Diarrhea Genitourinary Symptoms: No Symptoms, No Dysuria Musculoskeletal: No Symptoms, No Back Pain, No Neck Pain Skin: No Symptoms, No Rash Neurological: No Symptoms, No Dizziness, No Focal Weakness, No Sensory Changes Psychological: No Symptoms Endocrine: No Symptoms Hematologic/Lymphatic: No Symptoms Immunological/Allergic: No Symptoms All Other Systems: Reviewed and Negative - Past Medical History Pertinent Past Medical History: Yes Neurological History: No Pertinent History ENT History: No Pertinent History Cardiac History: No Pertinent History Respiratory History: No Pertinent History Endocrine Medical History: No Pertinent History Musculoskeletal History: Arthritis, Fractures GI Medical History: Hernia History: No Pertinent History Psycho-Social History: Anxiety, Depression Male Reproductive Disorders: No Pertinent History Other Medical History: ALLERGIES, ECZEMA - Past Surgical History Past Surgical History: Yes Neuro Surgical History: No Pertinent History Cardiac: No Pertinent History Respiratory: No Pertinent History Gastrointestinal: Hernia Repair Genitourinary: No Pertinent History Musculoskeletal: No Pertinent History Male Surgical History: No Pertinent History Other Surgical History: TUBES IN EARS - Social History Smoking Status: Current every day smoker How long have you smoked: 11 yrs Exposure to second hand smoke: Yes Drug Use: none Patient Lives Alone: No Significant Family History: no pertinent family hx - Nursing Vital Signs Nursing Vital Signs: Initial Vital Signs Temperature 97.5 F 08/08/22 04:14 Pulse Rate 118 H 08/08/22 04:14 Respiratory Rate 18 08/08/22 04:14 Blood Pressure 134/97 08/08/22 04:14 O2 Sat by Pulse Oximetry 95 08/08/22 04:14 Pain Scale Pain Intensity 7 - Physical Exam General Appearance: no apparent distress, alert Eye Exam: PERRL/EOMI, eyes nml inspection Ears, Nose, Throat Exam: normal ENT inspection, TMs normal, pharynx normal, moist mucous membranes, other (Carious teeth throughout. Swelling to left jaw. Patient appears to have a dental abscess at tooth #18. No trismus. No Julien's angina.) Neck Exam: normal inspection, non-tender, supple, full range of motion Respiratory Exam: normal breath sounds, lungs clear, airway intact, No chest tenderness, No respiratory distress Cardiovascular Exam: regular rate/rhythm, normal heart sounds, normal peripheral pulses Gastrointestinal/Abdomen Exam: soft, normal bowel sounds, No tenderness, No mass Back Exam: normal inspection, normal range of motion, No CVA tenderness, No vertebral tenderness Extremity Exam: normal inspection, normal range of motion, pelvis stable Neurologic Exam: alert, oriented x 3, cooperative, normal mood/affect, nml cerebellar function, nml station & gait, sensation nml, No motor deficits Skin Exam: normal color, warm, dry, No rash Lymphatic Exam: No adenopathy SpO2 Interpretation: normal SpO2: 95 O2 Delivery: Room Air - Course Nursing assessment & vital signs reviewed: Yes Ordered Tests: Medication Summary Generic Name Dose Route Start Last Admin Trade Name Freq PRN Reason Stop Dose Admin Ketorolac Tromethamine 30 mg 08/08/22 04:46 Ketorolac Tromethamine 30 Mg/Ml Inj IM 08/08/22 04:47 STAT ONE Discontinued Medications Generic Name Dose Route Start Last Admin Trade Name Freq PRN Reason Stop Dose Admin Amoxicillin/Clavulanate Potassium 875 mg 08/08/22 04:45 Amox Tr/Potassium Clavulanate 875 Mg Tablet PO 08/08/22 04:46 STAT ONE - Progress Progress: improved Progress Note: 32-year-old male with poor dentition presents with a left lower jaw dental abscess. Patient received a dose of antibiotics/Augmentin in our ED. Toradol IM also administered. A prescription for Toradol and Augmentin was forwarded to patient's pharmacy. Patient understands importance of following up with his primary care doctor/dentist within 48 hours for evaluation. Patient agrees to do so. Patient is ready for discharge. He voices no other complaints or concerns at this time. Portions of this note were created with voice recognition technology. There may be grammatical, spelling, punctuation or sound alike errors 08/08/22 04:55 Counseled pt/family regarding: diagnosis, need for follow-up - Departure Departure Disposition: Home Clinical Impression: Carious teeth, Dental abscess, Pain, dental Condition: Stable Critical Care Time: No Referrals: MARYANNE BLAKE MD [Primary Care Provider] - Follow up/PCP as directed Additional Instructions: Discharge/Care Plan TEREZA GARRISON MONI CHRISTIANSON was seen on 08/08/22 in the Emergency Room. The patient was counseled regarding Diagnosis,Lab results, Imaging studies, need for follow up and when to return to the Emergency Room. Prescriptions given: Discharge Note I have spoken with the patient and/or caregivers. I have explained the patient's condition, diagnosis and treatment plan based on the information available to me at this time. I have answered the patient's and/or caregiver's questions and addressed any concerns. The patient and/or caregivers have as good understanding of the patient's diagnosis, condition and treatment plan as can be expected at this point. The vital signs have been stable. The patient's condition is stable and appropriate for discharge from the emergency department. The patient will pursue further outpatient evaluation with the primary care physician or other designated or consulting physician as outlined in the discharge instructions. The patient and/or caregivers are agreeable to this plan of care and follow-up instructions have been explained in detail. The patient and/or caregivers have received these instruction. The patient/and or caregivers are aware that any significant change in condition or worsening of symptoms should prompt an immediate return to this or the closest emergency department or call 911. Prescriptions: Amox Tr/Potass Clav. 875 mg [Augmentin 875-125 Tablet] 875 mg PO BID 7 Days #14 tablet Ketorolac Trometh 10 mg Tab [TORAdol 10 MG TABLET] 10 mg PO TID 5 Days #15 tablet Ketorolac Trometh 10 mg Tab [TORAdol 10 MG TABLET] 10 mg PO TID 5 Days #15 tablet
[2022-08-08 05:18] VITALS: BP 139/97; PULSE 102; O2SAT 94
== END 2022-08-08 05:16 | disposition home or self-care (01) ==
LOC: ED 04:07
DX: K04.7 Periapical abscess without sinus (principal); K02.9 Dental caries, unspecified; K08.89 Other specified disorders of teeth and supporting structures; Z79.899 Other long term (current) drug therapy; Z72.0 Tobacco use
CPT/HCPCS: 96372; 99283; J1885; A9270-GY

== ENCOUNTER 2022-10-12 15:19 | Emergency (ER) | payer BC ==
[2022-10-12 15:34] VITALS: BP 109/74
--- NOTE | 2022-10-12 15:56 | ERPHSYRPT ---
- History of Present Illness Source: patient Exam Limitations: no limitations Patient Subjective Stated Complaint: abcess to the left lower jaw with swelling that began approx 2 months ago, swelling happened before and he took other medication for it and never had his mouth looked at Triage Nursing Assessment: Pt brought self to the ER, tachycardic, rates pain as 5/10, left jaw swollen, pt states that he doesn't have any teeth that hurts, has been a little swollen for approx 2 months, doesn't appear to be in any distress Physician History: 32 yo wm w L mandibular edema since last night. Pt had similar edema 2 months ago with ER visit which was treated with antibiotics. He has pain around the edema but denies dental pain. Pt has very poor dentition w many fractured and eroded teeth. Timing/Duration: yesterday Severity: moderate ENT Location: mouth (L mandibular edema) Prearrival Treatment: no prearrival treatment Modifying Factors: Improves With: nothing Associated Symptoms: denies symptoms Allergies/Adverse Reactions: No Known Drug Allergies Allergy (Verified 10/12/22 15:34) Home Medications: Pregabalin [Lyrica] 300 mg PO BID 03/15/21 [History] Tapentadol HCl [Nucynta] 100 mg PO QID 03/15/21 [History] Doxepin HCl 30 mg PO DAILY 07/08/22 [History] Hx Tetanus, Diphtheria Vaccination/Date Given: No (unknown) Hx Influenza Vaccination/Date Given: No Hx Pneumococcal Vaccination/Date Given: No Travel Risk - International Travel Have you traveled outside of the country in past 3 weeks: No - Coronavirus Screening Are you exhibiting any of the following symptoms?: No Close contact with a COVID-19 positive Pt in past 14-21 Days: No - Vaccine Status Have you recieved a Covid-19 vaccination: Yes 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: [employer] - Vaccination Dates Date of 2cond Vaccination (if applicable): February 15, 2021 - Review of Systems Constitutional: No Symptoms Eyes: No Symptoms Ears, Nose, & Throat: No Symptoms, Mouth Swelling Respiratory: No Symptoms Cardiac: No Symptoms Abdominal/Gastrointestinal: No Symptoms Genitourinary Symptoms: No Symptoms Musculoskeletal: No Symptoms Skin: No Symptoms Neurological: No Symptoms Psychological: No Symptoms Endocrine: No Symptoms Hematologic/Lymphatic: No Symptoms Immunological/Allergic: No Symptoms - Past Medical History Pertinent Past Medical History: Yes Neurological History: No Pertinent History ENT History: No Pertinent History Cardiac History: No Pertinent History Respiratory History: No Pertinent History Endocrine Medical History: No Pertinent History Musculoskeletal History: Arthritis, Fractures GI Medical History: Hernia History: No Pertinent History Psycho-Social History: Anxiety, Depression Male Reproductive Disorders: No Pertinent History Other Medical History: ALLERGIES, ECZEMA - Past Surgical History Past Surgical History: Yes Neuro Surgical History: No Pertinent History Cardiac: No Pertinent History Respiratory: No Pertinent History Gastrointestinal: Hernia Repair Genitourinary: No Pertinent History Musculoskeletal: No Pertinent History Male Surgical History: No Pertinent History Other Surgical History: TUBES IN EARS - Social History Smoking Status: Current every day smoker How long have you smoked: 11 yrs Exposure to second hand smoke: Yes Drug Use: none Patient Lives Alone: No Significant Family History: no pertinent family hx - Nursing Vital Signs Nursing Vital Signs: Initial Vital Signs Temperature 97.0 F 10/12/22 15:26 Pulse Rate 121 H 10/12/22 15:26 Blood Pressure 109/74 10/12/22 15:26 O2 Sat by Pulse Oximetry 95 10/12/22 15:26 Pain Scale Pain Intensity 5 tachy - Physical Exam General Appearance: no apparent distress Eye Exam: bilateral eye: normal inspection, PERRL, EOMI Ear Exam: bilateral ear: auricle normal, canal normal, TM normal Nasal Exam: normal inspection Throat Exam: pharynx normal, mandibular swelling (L mandibular edema and mild TTP/many eroded and fractured teeth ), No pharynx swelling, No pharynx tenderness, No trismus, No uvula swelling Neck Exam: normal inspection, non-tender, supple, full range of motion, trachea midline Cardiovascular/Respiratory Exam: normal breath sounds, regular rate/rhythm, heart sounds normal Abdominal Exam: non-tender, soft Neurologic Exam: alert, oriented x 3, cooperative, 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 tested, normal mood/affect, nml cerebellar function, nml station & gait, sensation nml Skin Exam: normal color, warm, dry SpO2 Interpretation: normal SpO2: 95 O2 Delivery: Room Air - CT Exams Maxillofacial Bones CT Interpretation: Discussed w/radiologist (L mandibular cellulitis/Enlarged palatine tonsils/Reactice submandibular lymph nodes) Ordered Tests: Active Orders 24 hr Category Date Time Status FACIAL BONES WO CONTRAST [CT] Stat Exams 10/12/22 16:14 Completed Medication Summary Discontinued Medications Generic Name Dose Route Start Last Admin Trade Name Wendi PRN Reason Stop Dose Admin Ketorolac Tromethamine 30 mg 10/12/22 16:30 10/12/22 16:38 Ketorolac Tromethamine 30 Mg/Ml Inj IM 10/12/22 16:31 30 mg STAT ONE Administration Ketorolac Tromethamine Confirm 10/12/22 16:34 Ketorolac Tromethamine 30 Mg/Ml Inj Administered 10/12/22 16:35 Dose 30 mg .ROUTE .STK-MED ONE - Progress Progress Note: 10/12/22 16:30 30mg IM Toradol Counseled pt/family regarding: diagnosis, need for follow-up, rad results - Departure Departure Disposition: Home Clinical Impression: Facial cellulitis Condition: Stable Critical Care Time: No Referrals: MARYANNE BLAKE MD [Primary Care Provider] - Follow up/PCP as directed Instructions: Cellulitis and Erysipelas (Skin Infections) Additional Instructions: Follow up with your family MD and dentist Start Doxycycline twice a day Toradol as needed for pain Return to ER for increased swelling, pain, or temperature greater than 100.5 Prescriptions: Doxycycline Monohydrate 100 mg PO BID #20 cap Ketorolac Trometh 10 mg Tab [TORAdol 10 MG TABLET] 10 mg PO TID PRN #14 tablet PRN Reason: Pain
[2022-10-12 16:22] VITALS: PULSE 124
--- NOTE | 2022-10-12 16:29 | XRAY ---
Indication: Left mandible edema. Multiple contiguous axial images obtained through the facial bones without contrast. Sagittal and coronal reformatted images obtained. Cutaneous BB placed over region of interest. Comparison: None Multiple dental amalgams produces beam artifact. Cutaneous BB is adjacent to body of left mandible where there is moderate subcutaneous soft tissue swelling and induration favoring inflammatory/infectious process. No walled off fluid collection or emphysema. Small centimeter/subcentimeter submandibular and cervical lymph nodes presumed reactive. Enlarged palatine tonsils narrows the oropharynx. Parotid and submandibular glands are unremarkable. No acute fracture, suspicious bony lesions, or osseous destructive process. TMJ bilaterally symmetric. Base of brain unremarkable. Impression: Left mandible cellulitis without focal walled off fluid collection/emphysema. Reactive submandibular/cervical lymph nodes. Incidental enlarged palatine tonsils.
[2022-10-12] MEDS ORDERED: TORAdol 30 mg Injection IM ONE (16:30)
[2022-10-12 16:33] VITALS: O2SAT 95
[2022-10-12] MEDS ORDERED: TORAdol 30 mg Injection ONE (16:34)
== END 2022-10-12 16:43 | disposition home or self-care (01) ==
LOC: ED 15:19
DX: L03.211 Cellulitis of face (principal); Z72.0 Tobacco use; Z79.899 Other long term (current) drug therapy
CPT/HCPCS: 70486; 96372; 99283; J1885

== ENCOUNTER 2022-12-01 19:55 | Emergency (ER) | payer BC ==
[2022-12-01 21:07] VITALS: BP 131/94; PULSE 102; O2SAT 97
[2022-12-01] MEDS ORDERED: TORAdol 30 mg Injection IM ONE (21:08)
[2022-12-01] MEDS ORDERED: Augmentin 875-125 Tablet PO ONE (21:08)
[2022-12-01] MEDS ORDERED: Augmentin 875-125 Tablet ONE (21:13)
[2022-12-01] MEDS ORDERED: TORAdol 30 mg Injection ONE (21:13)
--- NOTE | 2022-12-01 21:13 | ERPHSYRPT ---
- History of Present Illness Time Seen by Provider: 12/01/22 20:14 Source: patient Exam Limitations: no limitations Patient Subjective Stated Complaint: pt states he has some broken teeth to lt lower jaw. strated having swelling starting last night. Triage Nursing Assessment: pt alert and oriented, answers questions approp. pt ambulatory with steady gait noted. respirations nonlabored. skin warm and dry. swelling noted to lt lower jaw. swelling noted to gums on lt lower. pt reportws no diff swallowing or breathing. Physician History: 32 years old male with history of dental caries with multiple broken teeth presented in the ER with left lower jaw pain and swelling for last 2 days with progressive worsening with associated moderate intensity sharp pain with movements of jaw without difficulty breathing or swallowing. No fever or chills reported. Timing/Duration: days (2) Severity: moderate ENT Location: mouth, facial, dental Prearrival Treatment: over the counter meds Associated Symptoms: tooth pain Allergies/Adverse Reactions: No Known Drug Allergies Allergy (Verified 12/01/22 21:06) Home Medications: Pregabalin [Lyrica] 300 mg PO BID 03/15/21 [History] Tapentadol HCl [Nucynta] 100 mg PO QID 03/15/21 [History] Hx Tetanus, Diphtheria Vaccination/Date Given: No (unknown) Hx Influenza Vaccination/Date Given: No Hx Pneumococcal Vaccination/Date Given: No Immunizations Up to Date: No Travel Risk - International Travel Have you traveled outside of the country in past 3 weeks: No - Coronavirus Screening Are you exhibiting any of the following symptoms?: No - Vaccine Status Have you recieved a Covid-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[employer] - Vaccination Dates Date of 2cond Vaccination (if applicable): February 15, 2021 - Review of Systems Constitutional: No Symptoms Eyes: No Symptoms Ears, Nose, & Throat: Mouth Pain, Mouth Swelling, No Throat Pain Respiratory: No Symptoms Cardiac: No Symptoms Musculoskeletal: No Symptoms Skin: No Symptoms Neurological: No Symptoms Endocrine: No Symptoms Hematologic/Lymphatic: No Symptoms - Past Medical History Pertinent Past Medical History: Yes Neurological History: No Pertinent History ENT History: No Pertinent History Cardiac History: No Pertinent History Respiratory History: No Pertinent History Endocrine Medical History: No Pertinent History Musculoskeletal History: Arthritis, Fractures GI Medical History: Hernia History: No Pertinent History Psycho-Social History: Anxiety, Depression Male Reproductive Disorders: No Pertinent History Other Medical History: ALLERGIES, ECZEMA - Past Surgical History Past Surgical History: Yes Neuro Surgical History: No Pertinent History Cardiac: No Pertinent History Respiratory: No Pertinent History Gastrointestinal: Hernia Repair Genitourinary: No Pertinent History Musculoskeletal: No Pertinent History Male Surgical History: No Pertinent History Other Surgical History: TUBES IN EARS - Social History Smoking Status: Current every day smoker How long have you smoked: 15 yrs Exposure to second hand smoke: Yes Drug Use: none Patient Lives Alone: No Significant Family History: no pertinent family hx - Nursing Vital Signs Nursing Vital Signs: Initial Vital Signs Temperature 97.9 F 12/01/22 20:58 Pulse Rate 102 H 12/01/22 20:58 Respiratory Rate 16 12/01/22 20:58 Blood Pressure 131/94 12/01/22 20:58 O2 Sat by Pulse Oximetry 97 12/01/22 20:58 Pain Scale Pain Intensity 8 - Physical Exam General Appearance: no apparent distress, alert Eye Exam: bilateral eye: normal inspection, PERRL, EOMI Ear Exam: bilateral ear: auricle normal, canal normal, TM normal Nasal Exam: normal inspection Throat Exam: normal, pharynx normal, dental tenderness (Left lower premolar and molar with gingival swelling, negative fluctuation. 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 No fever or chills. Has no fluctuation in exam. I believe patient is going towards developing dental abscess. Given Toradol for symptomatic relief and started on Augmentin. No airway compromise. Outpatient dental follow-up recommended. Discussed signs symptoms of worsening needing return to ER which he seems understanding. Counseled pt/family regarding: diagnosis, need for follow-up - Departure Departure Disposition: Home Clinical Impression: Dental infection Condition: Stable Critical Care Time: No Referrals: MARYANNE BLAKE MD [Primary Care Provider] - Follow Up with PCP/3 days SARA FLORIAN DDS [NON-STAFF PHY W/O PRIVILEGES] - Follow up/PCP as directed (Call in 2 days for appointment for reevaluation) Instructions: Tooth Abscess (DC) Additional Instructions: Take Tylenol/ibuprofen as needed. Follow-up with your dentist for reevaluation. Return to ER for any worsening. Prescriptions: Ibuprofen 600 mg PO Q6HPRN PRN 10 Days #20 tablet PRN Reason: Pain Amox Tr/Potass Clav. 875 mg [Augmentin 875-125 Tablet] 875 mg PO BID #14 tablet
== END 2022-12-01 21:44 | disposition home or self-care (01) ==
LOC: ED 19:55
DX: K04.7 Periapical abscess without sinus (principal); R68.84 Jaw pain; Z79.899 Other long term (current) drug therapy; Z72.0 Tobacco use
CPT/HCPCS: 96372; 99283; J1885; A9270-GY

== ENCOUNTER 2023-03-20 12:04 | Emergency (ER) | payer BC ==
[2023-03-20] MEDS ORDERED: Zofran 4 MG/2 ML VIAL IV ONE (13:44)
[2023-03-20] MEDS ORDERED: Sodium Chloride 0.9% 1000 ML 1,000 ML IV STA (13:44)
[2023-03-20] MEDS ORDERED: Sodium Chloride 0.9% 1000 ML 1,000 ML ONE (13:56)
[2023-03-20] MEDS ORDERED: Zofran 4 MG/2 ML VIAL ONE (13:56)
[2023-03-20 14:03] VITALS: O2SAT 97
[2023-03-20 14:03] LABS: Absolute Neutrophil Ct (ANC) 6.34 x10^3/uL (1.4-6.9); BASOPHIL % 0.2 % (0.0-0.4); Basophil (Absolute #) 0.02 x10^3/uL (0-0.4); Eosinophil (Absolute #) 0 x10^3/uL (0-0.5); Hematocrit 52.1 % (42-50); Hemoglobin 17.9 g/dL (12.5-18.0); IMMATURE GRAN # 0.04 x10^3u/L (0.00-0.03); IMMATURE GRAN % 0.4 % (0.00-0.4); Mean Cell Volume 84.4 fL (78-100); Mean Corpuscular Hgb Concent. 34.4 g/dL (32-36); Mean Platelet Volume 10.2 fL (7.5-11.0); Monocyte (Absolute #) 0.65 x10^3/uL (0.0-1.3); Monocytes % 7.1 % (0.0-12.0); Neutrophil % 69.3 % (36.0-66.0); Platelet Count 328 x10^3/uL (150-450); Red Blood Count 6.17 x10^6/uL (4.1-5.6); Red Cell Distribution Width 13.2 % (11.5-14.0); White Blood Count 9.2 x10^3/uL (4.0-10.5)
[2023-03-20 14:10] LABS: ALBUMIN 4.7 g/dL (3.5-5.0); ALKALINE PHOSPHATASE 91 U/L (38-126); ANION GAP 17.4 MEQ/L (5-15); BLOOD UREA NITROGEN 13 mg/dL (9-20); CHLORIDE 100 mmol/L (98-107); Calcium 9.3 mg/dL (8.4-10.2); Carbon Dioxide 26 mmol/L (22-30); Creatinine 1 1.12 mg/dL (0.66-1.25); EST GLOMERULAR FILTRATION RATE > 60.0 ML/MIN; Glucose 123 mg/dL (74-106); LIPASE 31 U/L (23-300); Potassium 3.7 mmol/L (3.5-5.1); SGOT/AST 23 U/L (17-59); SGPT/ALT 28 U/L (0-50); SODIUM 140 mmol/L (137-145); Total Protein 8.2 g/dL (6.3-8.2)
[2023-03-20 14:12] LABS: Appearance Clear (Clear); Bacteria None Seen /HPF (None Seen); Bilirubin Small (Negative); Blood Negative (Negative); Epithelial Cells None Seen /HPF (None Seen); Glucose, Urine Negative (Negative); Ketones 80 (Negative); Leukocyte Esterase Negative (Negative); Nitrite Negative (Negative); Ph 5.5 (4.6-8.0); Protein,Urine Dip 30 (Negative); RBC 0-2 /HPF (0-5); Specific Gravity >=1.030 (1.005-1.030); WBC 0-2 /HPF (0-5)
[2023-03-20 14:13] LABS: ADD URINE CULTURE? NO (NO)
--- NOTE | 2023-03-20 14:50 | XRAY ---
Indication: Nonstop vomiting. Multiple contiguous axial images obtained through the abdomen and pelvis without contrast. Comparison: None Lung bases demonstrate tiny lingula calcified granuloma. No infiltrate or effusion. Heart not enlarged. Noncontrasted stomach and bowel loops appear nonobstructed with normal appendix. Mild scattered left hemicolon diverticulosis without diverticulitis. No free fluid/air. Remaining liver, gallbladder, pancreas, spleen, adrenal glands, kidneys, ureters, bladder, and aorta are unremarkable for noncontrast exam. Osseous structures intact. No ventral or inguinal hernias. Impression: Incidental mild colonic diverticulosis and lingula calcified granuloma. Remaining CT abdomen/pelvis without contrast exam is negative.
--- NOTE | 2023-03-20 15:09 | ERPHSYRPT ---
- History of Present Illness Time Seen by Provider: 03/20/23 12:45 Exam Limitations: no limitations Patient Subjective Stated Complaint: C/O vomiting for 5 days. Denies fever or pain. Triage Nursing Assessment: Patient ambulated back to ER without difficulties. No SOB. He is alert and oriented. Skin turgor <2 seconds. Skin tone normal. Physician History: Patient is a 32-year-old male presents to our ED for evaluation of intermittent nausea and vomiting for 5 days. Patient states when he attempts to eat or drink he vomits. No active pain but patient reports a slight discomfort. No trauma. No fever. No diarrhea. No chest pain or shortness of breath. Symptoms are mild to moderate in intensity. No specific worsening improving factors. Patient denies history of the same. Patient voices no other complaints or concerns at this time. Portions of this note were created with voice recognition technology. There may be grammatical, spelling, punctuation or sound alike errors Complexity of problem addressed is moderate. Acute complicated with systemic illness. No critical care time. Complexity of data reviewed and analyzed is moderate. Patient served as independent historian. Test ordered and analyzed independently by Dr. Molina. Risk complications and or risk morbidity/mortality patient management is moderate. A prescription for Zofran was forwarded to patient's pharmacy. No hospitalization indicated. IV fluids infused. Patient reassessed. He is well. Patient tolerating p.o. Patient asymptomatic. Vital stable. Work-up essentially nonremarkable. Will discharge home. Patient agrees to follow-up with primary care doctor within 48 hours for reevaluation. Vital stable. Time to discharge patient is approximately 10 to 15 minutes Portions of this note were created with voice recognition technology. There may be grammatical, spelling, punctuation or sound alike errors Timing/Duration: day(s) (5 days) Activities at Onset: none Quality: other (Slight discomfort) Abdominal Pain Onset Location: generalized abdomen Pain Radiation: no radiation Severity of Pain-Max: mild Severity of Pain-Current: none Modifying Factors: Improves With: other Associated Symptoms: denies symptoms, No chest pain, No shortness of breath Previous symptoms: no prior history Allergies/Adverse Reactions: No Known Drug Allergies Allergy (Verified 03/20/23 12:21) Home Medications: Pregabalin [Lyrica] 300 mg PO BID 03/15/21 [History] Tapentadol HCl [Nucynta] 100 mg PO QID 03/15/21 [History] Omeprazole 1 tab PO DAILY 03/20/23 [History] Tizanidine HCl 4 mg [Zanaflex 4 MG] 1 tab PO TID 03/20/23 [History] Hx Tetanus, Diphtheria Vaccination/Date Given: Yes Hx Influenza Vaccination/Date Given: No Hx Pneumococcal Vaccination/Date Given: No Travel Risk - International Travel Have you traveled outside of the country in past 3 weeks: No - Coronavirus Screening Are you exhibiting any of the following symptoms?: Yes Symptoms: Vomiting/Diarrhea Close contact with a COVID-19 positive Pt in past 14-21 Days: No - Vaccine Status Have you recieved a Covid-19 vaccination: Yes 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: [employer] - Vaccination Dates Date of 2cond Vaccination (if applicable): February 15, 2021 - Review of Systems Constitutional: No Symptoms, No Fever, No Chills Eyes: No Symptoms Ears, Nose, & Throat: No Symptoms Respiratory: No Symptoms, No Cough, No Dyspnea Cardiac: No Symptoms, No Chest Pain, No Edema, No Syncope Abdominal/Gastrointestinal: No Symptoms, No Abdominal Pain, No Nausea, No Vomiting, No Diarrhea Genitourinary Symptoms: No Symptoms, No Dysuria Musculoskeletal: No Symptoms, No Back Pain, No Neck Pain Skin: No Symptoms, No Rash Neurological: No Symptoms, No Dizziness, No Focal Weakness, No Sensory Changes Psychological: No Symptoms Endocrine: No Symptoms Hematologic/Lymphatic: No Symptoms Immunological/Allergic: No Symptoms All Other Systems: Reviewed and Negative - Past Medical History Pertinent Past Medical History: Yes Neurological History: No Pertinent History ENT History: No Pertinent History Cardiac History: No Pertinent History Respiratory History: No Pertinent History Endocrine Medical History: No Pertinent History Musculoskeletal History: Arthritis, Fractures GI Medical History: Hernia History: No Pertinent History Psycho-Social History: Anxiety, Depression Male Reproductive Disorders: No Pertinent History Other Medical History: ALLERGIES, ECZEMA, MRSA as a child but unsure of source - Past Surgical History Past Surgical History: Yes Neuro Surgical History: No Pertinent History Cardiac: No Pertinent History Respiratory: No Pertinent History Gastrointestinal: Hernia Repair Genitourinary: No Pertinent History Musculoskeletal: No Pertinent History Male Surgical History: No Pertinent History Other Surgical History: TUBES IN EARS - Social History Smoking Status: Current every day smoker How long have you smoked: 15 years Exposure to second hand smoke: Yes Drug Use: none Patient Lives Alone: No Significant Family History: no pertinent family hx - Nursing Vital Signs Nursing Vital Signs: Initial Vital Signs Temperature 97.9 F 03/20/23 12:23 Pulse Rate 85 03/20/23 12:23 Respiratory Rate 18 03/20/23 12:23 Blood Pressure 141/103 03/20/23 12:23 O2 Sat by Pulse Oximetry 94 L 03/20/23 12:23 Pain Scale Pain Intensity 0 - Physical Exam General Appearance: no apparent distress, alert Eye Exam: PERRL/EOMI, eyes nml inspection Ears, Nose, Throat Exam: normal ENT inspection, pharynx normal, moist mucous membranes Neck Exam: normal inspection, non-tender, supple, full range of motion Respiratory Exam: normal breath sounds, lungs clear, airway intact, No respiratory distress Cardiovascular Exam: regular rate/rhythm, normal heart sounds, normal peripheral pulses Gastrointestinal/Abdomen Exam: soft, No tenderness, No mass Back Exam: normal inspection, normal range of motion, No CVA tenderness, No vertebral tenderness Extremity Exam: normal inspection, normal range of motion, pelvis stable Neurologic Exam: alert, oriented x 3, cooperative, normal mood/affect, nml cerebellar function, sensation nml, No motor deficits Skin Exam: normal color, warm, dry Lymphatic Exam: No adenopathy SpO2 Interpretation: normal SpO2: 97 O2 Delivery: Room Air - Course Nursing assessment & vital signs reviewed: Yes - CT Exams Abdomen/Pelvis CT Interpretation: Tele-radiologist Report (Lung granuloma, diverticulosis) Ordered Tests: Active Orders 24 hr Category Date Time Status IV Insertion STAT Care 03/20/23 13:44 Active ABDOMEN AND PELVIS W/0 CONTRAS [CT] Stat Exams 03/20/23 13:44 Completed CBC W DIFF Stat Lab 03/20/23 Completed CMP Stat Lab 03/20/23 Completed LIPASE Stat Lab 03/20/23 Completed TROPONIN Q4H Lab 03/20/23 Completed TROPONIN Q4H Lab 03/20/23 17:45 Ordered TROPONIN Q4H Lab 03/20/23 21:45 Ordered UA W/RFX UR CULTURE Stat Lab 03/20/23 13:56 Completed Medication Summary Discontinued Medications Generic Name Dose Route Start Last Admin Trade Name Freq PRN Reason Stop Dose Admin Sodium Chloride 1,000 mls @ 999 mls/hr 03/20/23 13:44 03/20/23 14:59 Sodium Chloride 0.9% 1000 Ml IV 03/20/23 14:44 Infused .Q1H1M STA Infusion Sodium Chloride Confirm 03/20/23 13:56 Sodium Chloride 0.9% 1000 Ml Administered 03/20/23 13:57 Dose 1,000 mls @ ud .ROUTE .STK-MED ONE Ondansetron HCl 4 mg 03/20/23 13:44 03/20/23 13:57 Ondansetron Hcl 4 Mg/2 Ml Vial IV 03/20/23 13:45 4 mg STAT ONE Administration Ondansetron HCl Confirm 03/20/23 13:56 Ondansetron Hcl 4 Mg/2 Ml Vial Administered 03/20/23 13:57 Dose 4 mg .ROUTE .STK-MED ONE Lab/Rad Data: Laboratory Result Diagrams 03/20/23 Unknown 03/20/23 Unknown Laboratory Results 03/20/23 03/20/23 03/20/23 Range/Units Unknown Unknown Unknown WBC 9.2 (4.0-10.5) x10^3/uL RBC 6.17 H (4.1-5.6) x10^6/uL Hgb 17.9 (12.5-18.0) g/dL Hct 52.1 H (42-50) % MCV 84.4 (78-100) fL MCH 29.0 (26-32) pg MCHC 34.4 (32-36) g/dL RDW 13.2 (11.5-14.0) % Plt Count 328 (150-450) x10^3/uL MPV 10.2 (7.5-11.0) fL Gran % 69.3 H (36.0-66.0) % Immature Gran % (Auto) 0.4 (0.00-0.4) % Nucleat RBC Rel Count 0.0 (0.00-0.1) % Eos # (Auto) 0 (0-0.5) x10^3/uL Immature Gran # (Auto) 0.04 H (0.00-0.03) x10^3u/L Absolute Lymphs (auto) 2.10 (1.0-4.6) x10^3/uL Absolute Monos (auto) 0.65 (0.0-1.3) x10^3/uL Absolute Nucleated RBC 0.00 (0.00-0.01) x10^3u/L Lymphocytes % 23.0 L (24.0-44.0) % Monocytes % 7.1 (0.0-12.0) % Eosinophils % 0.0 (0.00-5.0) % Basophils % 0.2 (0.0-0.4) % Absolute Granulocytes 6.34 (1.4-6.9) x10^3/uL Basophils # 0.02 (0-0.4) x10^3/uL Sodium 140 (137-145) mmol/L Potassium 3.7 (3.5-5.1) mmol/L Chloride 100 (98-107) mmol/L Carbon Dioxide 26 (22-30) mmol/L Anion Gap 17.4 H (5-15) MEQ/L BUN 13 (9-20) mg/dL Creatinine 1.12 (0.66-1.25) mg/dL Estimated GFR > 60.0 ML/MIN Glucose 123 H (74-106) mg/dL Calcium 9.3 (8.4-10.2) mg/dL Total Bilirubin 1.20 (0.2-1.3) mg/dL AST 23 (17-59) U/L ALT 28 (0-50) U/L Alkaline Phosphatase 91 (38-126) U/L Troponin I < 0.012 (0.000-0.034) ng/mL Serum Total Protein 8.2 (6.3-8.2) g/dL Albumin 4.7 (3.5-5.0) g/dL Lipase 31 (23-300) U/L Urine Color (Yellow) Urine Appearance (Clear) Urine pH (4.6-8.0) Ur Specific [place] (1.005-1.030) Urine Protein (Negative) Urine Glucose (UA) (Negative) mg/dL Urine Ketones (Negative) Urine Blood (Negative) Urine Nitrite (Negative) Urine Bilirubin (Negative) Urine Urobilinogen (0.2) mg/dL Ur Leukocyte Esterase (Negative) U Hyaline Cast (Auto) (0-2) /LPF Urine Microscopic RBC (0-5) /HPF Urine Microscopic WBC (0-5) /HPF Ur Epithelial Cells (None Seen) /HPF Urine Bacteria (None Seen) /HPF Urine Culture Reflexed (NO) 04/26/23 Range/Units 13:56 WBC (4.0-10.5) x10^3/uL RBC (4.1-5.6) x10^6/uL Hgb (12.5-18.0) g/dL Hct (42-50) % MCV (78-100) fL MCH (26-32) pg MCHC (32-36) g/dL RDW (11.5-14.0) % Plt Count (150-450) x10^3/uL MPV (7.5-11.0) fL Gran % (36.0-66.0) % Immature Gran % (Auto) (0.00-0.4) % Nucleat RBC Rel Count (0.00-0.1) % Eos # (Auto) (0-0.5) x10^3/uL Immature Gran # (Auto) (0.00-0.03) x10^3u/L Absolute Lymphs (auto) (1.0-4.6) x10^3/uL Absolute Monos (auto) (0.0-1.3) x10^3/uL Absolute Nucleated RBC (0.00-0.01) x10^3u/L Lymphocytes % (24.0-44.0) % Monocytes % (0.0-12.0) % Eosinophils % (0.00-5.0) % Basophils % (0.0-0.4) % Absolute Granulocytes (1.4-6.9) x10^3/uL Basophils # (0-0.4) x10^3/uL Sodium (137-145) mmol/L Potassium (3.5-5.1) mmol/L Chloride (98-107) mmol/L Carbon Dioxide (22-30) mmol/L Anion Gap (5-15) MEQ/L BUN (9-20) mg/dL Creatinine (0.66-1.25) mg/dL Estimated GFR ML/MIN Glucose (74-106) mg/dL Calcium (8.4-10.2) mg/dL Total Bilirubin (0.2-1.3) mg/dL AST (17-59) U/L ALT (0-50) U/L Alkaline Phosphatase (38-126) U/L Troponin I (0.000-0.034) ng/mL Serum Total Protein (6.3-8.2) g/dL Albumin (3.5-5.0) g/dL Lipase (23-300) U/L Urine Color Dark Yellow (Yellow) Urine Appearance Clear (Clear) Urine pH 5.5 (4.6-8.0) Ur Specific [place] >=1.030 A (1.005-1.030) Urine Protein 30 (Negative) Urine Glucose (UA) Negative (Negative) mg/dL Urine Ketones 80 A (Negative) Urine Blood Negative (Negative) Urine Nitrite Negative (Negative) Urine Bilirubin Small A (Negative) Urine Urobilinogen 1.0 A (0.2) mg/dL Ur Leukocyte Esterase Negative (Negative) U Hyaline Cast (Auto) 3-5 A (0-2) /LPF Urine Microscopic RBC 0-2 (0-5) /HPF Urine Microscopic WBC 0-2 (0-5) /HPF Ur Epithelial Cells None Seen (None Seen) /HPF Urine Bacteria None Seen (None Seen) /HPF Urine Culture Reflexed NO (NO) - Progress Progress: improved Progress Note: Patient a 32-year-old male presents to our ED for evaluation of nausea vomiting. Patient has been intermittently experiencing the symptoms for approximately 5 days. Patient denies pain but describes a slight discomfort in his abdomen. Otherwise no fever no trauma. Work-up entails CT abdomen pelvis, CBC, CMP, lipase, troponin, UA. Work-up essentially nonremarkable. Patient received a liter of normal saline and Zofran. Patient reassessed. Patient resting c omfortably. Patient denies pain or discomfort. Patient tolerated p.o. challenge. No nausea no vomiting. Patient states he is ready for discharge. A prescription for Zofran was forwarded to patient's pharmacy. Patient agrees to follow-up with his primary care doctor within 48 hours for reevaluation. Patient voices no other complaints or concerns at this time. Portions of this note were created with voice recognition technology. There may be grammatical, spelling, punctuation or sound alike errors 03/20/23 15:23 Counseled pt/family regarding: lab results, diagnosis, need for follow-up, rad results - Departure Departure Disposition: Home Clinical Impression: Nausea & vomiting, Lung granuloma, Diverticulosis Condition: Stable Critical Care Time: No Referrals: MARYANNE BLAKE MD [Primary Care Provider] - Follow up/PCP as directed Instructions: Diverticulosis (DC), Nausea and Vomiting, Adult (DC) Additional Instructions: Discharge/Care Plan MELITEREZA MONI CHRISTIANSON was seen on 03/20/23 in the Emergency Room. The patient was counseled regarding Diagnosis,Lab results, Imaging studies, need for follow up and when to return to the Emergency Room. Prescriptions given: Discharge Note I have spoken with the patient and/or caregivers. I have explained the patient's condition, diagnosis and treatment plan based on the information available to me at this time. I have answered the patient's and/or caregiver's questions and addressed any concerns. The patient and/or caregivers have as good understanding of the patient's diagnosis, condition and treatment plan as can be expected at this point. The vital signs have been stable. The patient's condition is stable and appropriate for discharge from the emergency department. The patient will pursue further outpatient evaluation with the primary care physician or other designated or consulting physician as outlined in the discharge instructions. The patient and/or caregivers are agreeable to this plan of care and follow-up instructions have been explained in detail. The patient and/or caregivers have received these instruction. The patient/and or caregivers are aware that any significant change in condition or worsening of symptoms should prompt an immediate return to this or the closest emergency department or call 911. Prescriptions: Ondansetron ODT 4 MG [Zofran Odt 4 mg] 4 mg PO Q6H PRN PRN #10 tablet PRN Reason: Vomiting
[2023-03-20 15:10] VITALS: BP 119/87; PULSE 78
== END 2023-03-20 15:40 | disposition home or self-care (01) ==
LOC: ED 12:04
DX: R11.2 Nausea with vomiting, unspecified (principal); J84.10 Pulmonary fibrosis, unspecified; K57.90 Diverticulosis of intestine, part unspecified, without perforation or abscess without bleeding; Z79.899 Other long term (current) drug therapy; Z72.0 Tobacco use
CPT/HCPCS: 36000; 36415; 74176; 80053; 81001; 83690; 84484; 85025; 96374; 99284; J2405

== ENCOUNTER 2023-10-23 19:37 | Emergency (ER) | payer BC, OTHER ==
--- NOTE | 2023-10-23 19:41 | ERPHSYRPT ---
- History of Present Illness Time Seen by Provider: 10/23/23 19:41 Historian: patient Exam Limitations: no limitations Physician History: This is a 33-year-old white male patient of Dr. Blake who presents to the emergency department with left upper quadrant abdominal pain for 1 week (began 10/16/2023) and vomiting for 3 to 4 days. Patient did have diarrhea but that st opped 2 days ago. Patient has never had anything like this in the past. He does have a history of gastroesophageal reflux disease. He has no known exposures to individuals with similar symptoms or have been diagnosed with viral illnesses. Patient denies chest pain. Patient denies shortness of breath. Patient has not had fever or cough symptoms Activities at Onset: none Quality: sharpness Abdominal Pain Onset Location: [facility] Pain Radiation: no radiation Severity of Pain-Max: moderate Severity of Pain-Current: moderate Associated Symptoms: diarrhea (Resolved 2 days ago), loss of appetite, nausea, vomiting, weakness Previous symptoms: no prior history, no recent treatment Allergies/Adverse Reactions: No Known Drug Allergies Allergy (Verified 10/23/23 20:25) Home Medications: Pregabalin [Lyrica] 300 mg PO BID 03/15/21 [History] Tizanidine HCl 4 mg [Zanaflex 4 MG] 1 tab PO TID 03/20/23 [History] Doxepin HCl 30 mg PO HS 10/23/23 [History] Hx Tetanus, Diphtheria Vaccination/Date Given: Yes Hx Influenza Vaccination/Date Given: No Hx Pneumococcal Vaccination/Date Given: No Travel Risk - International Travel Have you traveled outside of the country in past 3 weeks: No - Coronavirus Screening Are you exhibiting any of the following symptoms?: No Close contact with a COVID-19 positive Pt in past 14-21 Days: No - Vaccine Status Have you recieved a Covid-19 vaccination: Yes 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[employer] - Vaccination Dates Date of 2cond Vaccination (if applicable): February 15, 2021 - Review of Systems Constitutional: Weakness Eyes: No Symptoms Ears, Nose, & Throat: No Symptoms Respiratory: No Symptoms Abdominal/Gastrointestinal: Abdominal Pain, Nausea, Vomiting, Diarrhea, Appetite Changes Genitourinary Symptoms: No Symptoms Musculoskeletal: No Symptoms Skin: No Symptoms Neurological: No Symptoms Psychological: No Symptoms Endocrine: No Symptoms Hematologic/Lymphatic: No Symptoms Immunological/Allergic: No Symptoms All Other Systems: Reviewed and Negative - Past Medical History Pertinent Past Medical History: Yes Neurological History: No Pertinent History ENT History: No Pertinent History Cardiac History: No Pertinent History Respiratory History: No Pertinent History Endocrine Medical History: No Pertinent History Musculoskeletal History: Arthritis, Fractures GI Medical History: Hernia History: No Pertinent History Psycho-Social History: Anxiety, Depression Male Reproductive Disorders: No Pertinent History Other Medical History: ALLERGIES, ECZEMA, MRSA as a child but unsure of source - Past Surgical History Past Surgical History: Yes Neuro Surgical History: No Pertinent History Cardiac: No Pertinent History Respiratory: No Pertinent History Gastrointestinal: Hernia Repair Genitourinary: No Pertinent History Musculoskeletal: No Pertinent History Male Surgical History: No Pertinent History Other Surgical History: TUBES IN EARS - Social History Smoking Status: Current every day smoker How long have you smoked: 15 years Exposure to second hand smoke: Yes Drug Use: none Patient Lives Alone: No Significant Family History: no pertinent family hx - Nursing Vital Signs Nursing Vital Signs: Initial Vital Signs Temperature 98.2 F 10/23/23 20:30 Pulse Rate 63 10/23/23 20:30 Respiratory Rate 18 10/23/23 20:30 Blood Pressure 149/100 10/23/23 20:30 O2 Sat by Pulse Oximetry 97 10/23/23 20:30 Pain Scale Pain Intensity 3 - Physical Exam General Appearance: no apparent distress, alert, anxiety Eye Exam: PERRL/EOMI, eyes nml inspection Ears, Nose, Throat Exam: normal ENT inspection, moist mucous membranes Neck Exam: normal inspection, non-tender, supple, full range of motion Respiratory Exam: normal breath sounds, lungs clear, airway intact, No chest tenderness, No respiratory distress Cardiovascular Exam: regular rate/rhythm, normal heart sounds, normal peripheral pulses Gastrointestinal/Abdomen Exam: soft, normal bowel sounds, tenderness (Generalized to palpation), guarding (Generalized to palpation), No rebound Rectal Exam: not done Back Exam: normal inspection, normal range of motion, No CVA tenderness, No vertebral tenderness Extremity Exam: normal inspection, normal range of motion, pelvis stable Neurologic Exam: alert, oriented x 3, cooperative, tub rider II-XII nml as tested, no rmal mood/affect, nml cerebellar function, nml station & gait, sensation nml Skin Exam: normal color, warm, dry Lymphatic Exam: No adenopathy SpO2 Interpretation: normal O2 Delivery: Room Air - Course Nursing assessment & vital signs reviewed: Yes Ordered Tests: Active Orders 24 hr Category Date Time Status IV Insertion STAT Care 10/23/23 20:44 Active ABDOMEN AND PELVIS W/0 CONTRAS [CT] Stat Exams 10/23/23 20:47 Taken AMYLASE Stat Lab 10/23/23 20:55 Completed CBC W DIFF Stat Lab 10/23/23 20:55 Completed CMP Stat Lab 10/23/23 20:55 Completed LIPASE Stat Lab 10/23/23 20:55 Completed Lactic Acid Stat Lab 10/23/23 21:05 Completed MONO SCREEN Stat Lab 10/23/23 20:55 Completed UA W/RFX UR CULTURE Stat Lab 10/23/23 20:29 Completed Medication Summary Generic Name Dose Route Start Last Admin Trade Name Freq PRN Reason Stop Dose Admin Sodium Chloride 1,000 mls @ 999 mls/hr 10/23/23 23:06 10/23/23 23:20 Sodium Chloride 0.9% 1000 Ml IV 10/24/23 00:06 999 mls/hr .Q1H1M STA Administration Discontinued Medications Generic Name Dose Route Start Last Admin Trade Name Freq PRN Reason Stop Dose Admin Sodium Chloride 1,000 mls @ 999 mls/hr 10/23/23 20:47 10/23/23 22:33 Sodium Chloride 0.9% 1000 Ml IV 10/23/23 21:47 Infused .Q1H1M STA Infusion Sodium Chloride Confirm 10/23/23 21:03 Sodium Chloride 0.9% 1000 Ml Administered 10/23/23 21:04 Dose 1,000 mls @ ud .ROUTE .STK-MED ONE Sodium Chloride 1,000 mls @ 999 mls/hr 10/23/23 22:06 10/23/23 23:40 Sodium Chloride 0.9% 1000 Ml IV 10/23/23 23:06 Infused .Q1H1M STA Infusion Sodium Chloride Confirm 10/23/23 22:21 Sodium Chloride 0.9% 1000 Ml Administered 10/23/23 22:22 Dose 1,000 mls @ ud .ROUTE .STK-MED ONE Sodium Chloride Confirm 10/23/23 23:13 Sodium Chloride 0.9% 1000 Ml Administered 10/23/23 23:14 Dose 1,000 mls @ ud .ROUTE .STK-MED ONE Ondansetron HCl 4 mg 10/23/23 20:47 10/23/23 21:11 Ondansetron Hcl 4 Mg/2 Ml Vial IV 10/23/23 20:48 4 mg STAT ONE Administration Ondansetron HCl Confirm 10/23/23 21:03 Ondansetron Hcl 4 Mg/2 Ml Vial Administered 10/23/23 21:04 Dose 4 mg .ROUTE .STK-MED ONE Pantoprazole Sodium 40 mg 10/23/23 20:47 10/23/23 21:11 Pantoprazole 40 Mg Vial IV 10/23/23 20:48 40 mg STAT ONE Administration Pantoprazole Sodium Confirm 10/23/23 21:03 Pantoprazole 40 Mg Vial Administered 10/23/23 21:04 Dose 40 mg IV .STK-MED ONE Prochlorperazine Edisylate 5 mg 10/23/23 23:06 10/23/23 23:18 Prochlorperazine Edisylate 10 Mg/2 Ml Vial IV 10/23/23 23:07 5 mg STAT ONE Administration Prochlorperazine Edisylate Confirm 10/23/23 23:13 Prochlorperazine Edisylate 10 Mg/2 Ml Vial Administered 10/23/23 23:14 Dose 10 mg .ROUTE .STK-MED ONE Lab/Rad Data: Laboratory Result Diagrams 10/23/23 20:55 10/23/23 20:55 Laboratory Results 10/23/23 10/23/23 10/23/23 Range/Units 21:15 21:05 20:55 WBC (4.0-10.5) x10^3/uL RBC (4.1-5.6) x10^6/uL Hgb (12.5-18.0) g/dL Hct (42-50) % MCV (78-100) fL MCH (26-32) pg MCHC (32-36) g/dL RDW (11.5-14.0) % Plt Count (150-450) x10^3/uL MPV (7.5-11.0) fL Gran % (36.0-66.0) % Immature Gran % (Auto) (0.00-0.4) % Nucleat RBC Rel Count (0.00-0.1) % Eos # (Auto) (0-0.5) x10^3/uL Immature Gran # (Auto) (0.00-0.03) x10^3u/L Absolute Lymphs (auto) (1.0-4.6) x10^3/uL Absolute Monos (auto) (0.0-1.3) x10^3/uL Absolute Nucleated RBC (0.00-0.01) x10^3u/L Lymphocytes % (24.0-44.0) % Monocytes % (0.0-12.0) % Eosinophils % (0.00-5.0) % Basophils % (0.0-0.4) % Absolute Granulocytes (1.4-6.9) x10^3/uL Basophils # (0-0.4) x10^3/uL Sodium (137-145) mmol/L Potassium (3.5-5.1) mmol/L Chloride (98-107) mmol/L Carbon Dioxide (22-30) mmol/L Anion Gap (5-15) MEQ/L BUN (9-20) mg/dL Creatinine (0.66-1.25) mg/dL Estimated GFR ML/MIN Glucose (74-106) mg/dL Lactic Acid 1.7 (0.4-2.0) Calcium (8.4-10.2) mg/dL Total Bilirubin (0.2-1.3) mg/dL AST (17-59) U/L ALT (0-50) U/L Alkaline Phosphatase (38-126) U/L Serum Total Protein (6.3-8.2) g/dL Albumin (3.5-5.0) g/dL Amylase (30-110) U/L Lipase (23-300) U/L Urine Color (Yellow) Urine Appearance (Clear) Urine pH (4.6-8.0) Ur Specific [place] (1.005-1.030) Urine Protein (Negative) Urine Glucose (UA) (Negative) mg/dL Urine Ketones (Negative) Urine Blood (Negative) Urine Nitrite (Negative) Urine Bilirubin (Negative) Urine Urobilinogen (0.2) mg/dL Ur Leukocyte Esterase (Negative) U Hyaline Cast (Auto) (0-2) /LPF Urine Microscopic RBC (0-5) /HPF Urine Microscopic WBC (0-5) /HPF Ur Epithelial Cells (None Seen) /HPF Urine Bacteria (None Seen) /HPF Urine Culture Reflexed (NO) Monoscreen NEGATIVE (NEGATIVE) Influenza Type A Ag NEGATIVE (NEGATIVE) Influenza Type B Ag NEGATIVE (NEGATIVE) RSV (PCR) NEGATIVE (NEGATIVE) SARS-CoV-2 (PCR) NEGATIVE (NEGATIVE) 10/23/23 10/23/23 10/23/23 Range/Units 20:55 20:55 20:29 WBC 12.7 H (4.0-10.5) x10^3/uL RBC 6.02 H (4.1-5.6) x10^6/uL Hgb 18.0 (12.5-18.0) g/dL Hct 51.5 H (42-50) % MCV 85.5 (78-100) fL MCH 29.9 (26-32) pg MCHC 35.0 (32-36) g/dL RDW 12.5 (11.5-14.0) % Plt Count 358 (150-450) x10^3/uL MPV 10.8 (7.5-11.0) fL Gran % 76.9 H (36.0-66.0) % Immature Gran % (Auto) 0.5 H (0.00-0.4) % Nucleat RBC Rel Count 0.0 (0.00-0.1) % Eos # (Auto) 0 (0-0.5) x10^3/uL Immature Gran # (Auto) 0.06 H (0.00-0.03) x10^3u/L Absolute Lymphs (auto) 1.94 (1.0-4.6) x10^3/uL Absolute Monos (auto) 0.86 (0.0-1.3) x10^3/uL Absolute Nucleated RBC 0.00 (0.00-0.01) x10^3u/L Lymphocytes % 15.3 L (24.0-44.0) % Monocytes % 6.8 (0.0-12.0) % Eosinophils % 0.0 (0.00-5.0) % Basophils % 0.5 (0.0-0.4) % Absolute Granulocytes 9.73 H (1.4-6.9) x10^3/uL Basophils # 0.06 (0-0.4) x10^3/uL Sodium 139 (137-145) mmol/L Potassium 3.7 (3.5-5.1) mmol/L Chloride 100 (98-107) mmol/L Carbon Dioxide 26 (22-30) mmol/L Anion Gap 16.0 H (5-15) MEQ/L BUN 14 (9-20) mg/dL Creatinine 1.01 (0.66-1.25) mg/dL Estimated GFR 102.0 ML/MIN Glucose 115 H (74-106) mg/dL Lactic Acid (0.4-2.0) Calcium 9.4 (8.4-10.2) mg/dL Total Bilirubin 1.20 (0.2-1.3) mg/dL AST 22 (17-59) U/L ALT 25 (0-50) U/L Alkaline Phosphatase 77 (38-126) U/L Serum Total Protein 8.0 (6.3-8.2) g/dL Albumin 4.5 (3.5-5.0) g/dL Amylase 62 (30-110) U/L Lipase 26 (23-300) U/L Urine Color Dark Yellow (Yellow) Urine Appearance Clear (Clear) Urine pH 6.0 (4.6-8.0) Ur Specific [place] >=1.030 A (1.005-1.030) Urine Protein 100 A (Negative) Urine Glucose (UA) Negative (Negative) mg/dL Urine Ketones >=160 A (Negative) Urine Blood Negative (Negative) Urine Nitrite Negative (Negative) Urine Bilirubin Moderate A (Negative) Urine Urobilinogen 1.0 A (0.2) mg/dL Ur Leukocyte Esterase Negative (Negative) U Hyaline Cast (Auto) 3-5 A (0-2) /LPF Urine Microscopic RBC 3-5 (0-5) /HPF Urine Microscopic WBC 0-2 (0-5) /HPF Ur Epithelial Cells None Seen (None Seen) /HPF Urine Bacteria None Seen (None Seen) /HPF Urine Culture Reflexed NO (NO) Monoscreen (NEGATIVE) Influenza Type A Ag (NEGATIVE) Influenza Type B Ag (NEGATIVE) RSV (PCR) (NEGATIVE) SARS-CoV-2 (PCR) (NEGATIVE) - Progress Progress: improved, re-examined Progress Note: 10/23/23 22:20 This patient's medical issue is 1 of moderate complexity. The level complexity in the workup performed is based on review of the patient's past medical history, review the patient's medication list, review of patient drug allergy list, history of present illness and physical findings on examination. The work up in this patient includes placement of intravenous line, infusion of normal saline solution, infusion of 4 mg intravenous Zofran, infusion of 1 mg intravenous Dilaudid, infusion of 40 mg intravenous Protonix, amylase, lipase, lactic acid level, urinalysis, CT scan of the abdomen and pelvis without contrast. Counseled pt/family regarding: lab results, diagnosis, need for follow-up, rad results Medical Desision Making - Diagnostic Testing Diagnostic test were ordered, analyzed, and reviewed by me: Yes Radiological Interpretation: Reviewed by me, Teleradiologist Report - Risk of complications The pt has a mod risk of morbidity or mortality based on: Need for prescription drug management - Departure Departure Disposition: Home Clinical Impression: Abdominal pain, Vomiting and diarrhea, Dehydration Condition: Stable Critical Care Time: No Referrals: MARYANNE BLAKE MD [Primary Care Provider] - Follow up/PCP as directed Additional Instructions: Drink plenty of clear liquids before advancing your diet. Take your medications as prescribed. Call your primary care provider tomorrow, 10/24/2023, to make arrangements for further evaluation management. Forms: Work/School Release Form Prescriptions: Ondansetron ODT 4 MG [Zofran Odt 4 mg] 4 mg PO Q6H PRN PRN #10 tablet PRN Reason: Vomiting Famotidine 20 mg [Pepcid 20 MG] 20 mg PO DAILY #10 tablet
[2023-10-23 20:31] VITALS: TEMP 98.2
[2023-10-23] MEDS ORDERED: PROTONIX 40 MG IV IV ONE ×2 (20:47→21:03)
[2023-10-23] MEDS ORDERED: Zofran 4 MG/2 ML VIAL IV ONE (20:47)
[2023-10-23] MEDS ORDERED: Sodium Chloride 0.9% 1000 ML 1,000 ML IV STA ×3 (20:47→23:06)
[2023-10-23] MEDS ORDERED: Zofran 4 MG/2 ML VIAL ONE (21:03)
[2023-10-23] MEDS ORDERED: Sodium Chloride 0.9% 1000 ML 1,000 ML ONE ×3 (21:03→23:13)
[2023-10-23 21:08] LABS: Absolute Neutrophil Ct (ANC) 9.73 x10^3/uL (1.4-6.9); BASOPHIL % 0.5 % (0.0-0.4); Basophil (Absolute #) 0.06 x10^3/uL (0-0.4); Eosinophil (Absolute #) 0 x10^3/uL (0-0.5); Hematocrit 51.5 % (42-50); IMMATURE GRAN # 0.06 x10^3u/L (0.00-0.03); IMMATURE GRAN % 0.5 % (0.00-0.4); Lymphocyte (Absolute #) 1.94 x10^3/uL (1.0-4.6); Lymphocytes % 15.3 % (24.0-44.0); Mean Cell Volume 85.5 fL (78-100); Mean Corpuscular Hemoglobin 29.9 pg (26-32); Mean Platelet Volume 10.8 fL (7.5-11.0); Monocyte (Absolute #) 0.86 x10^3/uL (0.0-1.3); Monocytes % 6.8 % (0.0-12.0); Neutrophil % 76.9 % (36.0-66.0); Platelet Count 358 x10^3/uL (150-450); Red Blood Count 6.02 x10^6/uL (4.1-5.6); Red Cell Distribution Width 12.5 % (11.5-14.0); White Blood Count 12.7 x10^3/uL (4.0-10.5)
[2023-10-23 21:14] LABS: Appearance Clear (Clear); Bacteria None Seen /HPF (None Seen); Bilirubin Moderate (Negative); Blood Negative (Negative); Epithelial Cells None Seen /HPF (None Seen); Glucose, Urine Negative (Negative); Ketones >=160 (Negative); Leukocyte Esterase Negative (Negative); Nitrite Negative (Negative); Protein,Urine Dip 100 (Negative); Specific Gravity >=1.030 (1.005-1.030); WBC 0-2 /HPF (0-5)
[2023-10-23 21:15] LABS: ADD URINE CULTURE? NO (NO)
[2023-10-23 21:50] LABS: ALBUMIN 4.5 g/dL (3.5-5.0); BILIRUBIN,TOTAL 1.2 mg/dL (0.2-1.3); Calcium 9.4 mg/dL (8.4-10.2); Creatinine 1 1.01 mg/dL (0.66-1.25); Potassium 3.7 mmol/L (3.5-5.1)
[2023-10-23 21:57] LABS: INFLUENZA A NEGATIVE (NEGATIVE); INFLUENZA B NEGATIVE (NEGATIVE); RESPIRATORY SYNCTIAL VIRUS NEGATIVE (NEGATIVE); SARS-CoV-2 Xpert Express NEGATIVE (NEGATIVE)
[2023-10-23] MEDS ORDERED: Compazine 10 MG/2 ML IV ONE (23:06)
[2023-10-23] MEDS ORDERED: Compazine 10 MG/2 ML ONE (23:13)
[2023-10-24 00:17] VITALS: BP 128/68; PULSE 84; RESP 17; O2SAT 98
--- NOTE | 2023-10-24 09:04 | XRAY ---
Indication: Left upper quadrant abdomen pain. Nausea, vomiting, diarrhea. Multiple contiguous axial images obtained through the abdomen and pelvis without contrast. Comparison: March 20, 2023 Lung bases clear with again incidental lingula calcified granuloma. Heart not enlarged. New small hiatal hernia. Stomach is distended with food/fluid. Noncontrasted stomach and bowel loops appear nonobstructed with normal air-filled appendix. Free fluid/air. Remaining liver, gallbladder, pancreas, spleen, adrenal glands, kidneys, ureters, bladder, and aorta are unremarkable for noncontrast exam. Osseous structures intact. No ventral or inguinal hernias. Impression: Incidental small hiatal hernia. Remaining CT abdomen/pelvis without contrast exam is negative.
== END 2023-10-24 00:17 | disposition home or self-care (01) ==
LOC: ED 19:37
DX: R10.12 Left upper quadrant pain (principal); R11.2 Nausea with vomiting, unspecified; R19.7 Diarrhea, unspecified; E86.0 Dehydration; Z79.899 Other long term (current) drug therapy; Z72.0 Tobacco use
CPT/HCPCS: 0241U; 36000; 36415; 74176; 80053; 81001; 82150; 83605; 83690; 85025; 86308; 96360; 96361; 96374; 96375; 99284; J2405

== ENCOUNTER 2024-01-07 05:10 | Emergency (ER) | payer SELFPAY ==
[2024-01-07 05:23] VITALS: TEMP 97.4
--- NOTE | 2024-01-07 05:43 | ERPHSYRPT ---
- History of Present Illness Source: patient Exam Limitations: no limitations Patient Subjective Stated Complaint: tooth pain to rt lower bottom jaw, tooth broke off Triage Nursing Assessment: pt ambulated into ER without diff, pt alert and oriented x4. Pt c/o rt lower back tooth pain which began 2 days ago. Pt broke that tooth off about a week ago. Rt side of face is swollen. Timing/Duration: day(s) (2) Severity: mild Modifying Factors: Improves With: cold therapy. Worsens With: medication Associated Symptoms: No nausea, No vomiting, No abdominal pain, No fever, No headaches, No loss of appetite Hx Tetanus, Diphtheria Vaccination/Date Given: Yes Hx Influenza Vaccination/Date Given: No Hx Pneumococcal Vaccination/Date Given: No Immunizations Up to Date: No <Jaden Flores - Last Filed: 01/07/24 06:58> <GHAZALA MOLINA - Last Filed: 01/07/24 07:33> - History of Present Illness Time Seen by Provider: 01/07/24 05:30 Physician History: 33yo m presents for tooth pain x2d that worsened last night and has persisted. Pt states he broke a bottom right molar 2d ago and has had pain since, states he woke up this AM w/ swelling on the right side of his face and increased pain. Pt states he has had oral abscesses in the past. Pt states he was planning on seeing the dentist today but states his pain was too severe to wait. Pt resting comfortably during exam, non-toxic and able to have conversation w/o difficulty. Pt reports good PO intake despite pain. Pt denies fevers, COLE, n/v/abdominal pain, neck pain/swelling. Pt states he took zipsor before coming to ED w/o relief of pain. Also had norco 10mg tablet yesterday that did not relieve pain. (Jaden Flores) Allergies/Adverse Reactions: No Known Drug Allergies Allergy (Verified 01/07/24 05:31) Home Medications: Pregabalin [Lyrica] 300 mg PO BID 03/15/21 [History] Tizanidine HCl 4 mg [Zanaflex 4 MG] 1 tab PO TID 03/20/23 [History] Doxepin HCl 30 mg PO HS 10/23/23 [History] Hydrocodone/Acetaminophen [[place] 10-325 mg] 1 tab PO QID PRN PRN 01/07/24 [History] Travel Risk - International Travel Have you traveled outside of the country in past 3 weeks: No - Coronavirus Screening Are you exhibiting any of the following symptoms?: No Close contact with a COVID-19 positive Pt in past 14-21 Days: No - Vaccine Status Have you recieved a Covid-19 vaccination: Yes [address] 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 <SlingerlandsJaden - Last Filed: 01/07/24 06:58> - Review of Systems Constitutional: No Symptoms Ears, Nose, & Throat: Mouth Pain, Mouth Swelling, No Loose Teeth, No Throat Pain, No Throat Swelling, No Painful Swallowing Respiratory: No Symptoms Cardiac: No Symptoms Abdominal/Gastrointestinal: No Symptoms <Jaden Flores Louis - Last Filed: 01/07/24 06:58> - Past Medical History Pertinent Past Medical History: Yes Neurological History: No Pertinent History ENT History: No Pertinent History Cardiac History: No Pertinent History Respiratory History: No Pertinent History Endocrine Medical History: No Pertinent History Musculoskeletal History: Arthritis, Fractures GI Medical History: Hernia History: No Pertinent History Psycho-Social History: Anxiety, Depression Male Reproductive Disorders: No Pertinent History Other Medical History: ALLERGIES, ECZEMA, MRSA as a child but unsure of source - Past Surgical History Past Surgical History: Yes Neuro Surgical History: No Pertinent History Cardiac: No Pertinent History Respiratory: No Pertinent History Gastrointestinal: Hernia Repair Genitourinary: No Pertinent History Musculoskeletal: No Pertinent History Male Surgical History: No Pertinent History Other Surgical History: TUBES IN EARS - Social History Smoking Status: Current every day smoker How long have you smoked: 15 yrs Exposure to second hand smoke: Yes Drug Use: none Patient Lives Alone: No Significant Family History: no pertinent family hx <Jaden Flores - Last Filed: 01/07/24 06:58> - Physical Exam General Appearance: no apparent distress, alert Ears, Nose, Throat Exam: pharynx normal, other (right bottom molar obviously broken, no bleeding appreciated, no obvious oral abscess observed, TTP over right maxilla, no TTP over right side neck or zygomatic region), No tonsillar exudate Neck Exam: normal inspection, non-tender Respiratory Exam: normal breath sounds, lungs clear, No respiratory distress Cardiovascular Exam: regular rate/rhythm, normal heart sounds SpO2 Interpretation: normal SpO2: 96 O2 Delivery: Room Air <Jaden Flores - Last Filed: 01/07/24 06:58> - Nursing Vital Signs Nursing Vital Signs: Initial Vital Signs Temperature 97.4 F 01/07/24 05:21 Respiratory Rate 18 01/07/24 05:21 Blood Pressure 116/81 01/07/24 05:21 O2 Sat by Pulse Oximetry 96 01/07/24 05:21 Pain Scale Pain Intensity 8 - CT Exams Maxillofacial Bones CT Interpretation: Tele-radiologist Report (Findings suggestive of infective/inflammatory disease likely dental pathology. No discrete drainable abscesses.) <GHAZALA MOLINA - Last Filed: 01/07/24 07:33> Ordered Tests: Active Orders 24 hr Category Date Time Status FACIAL BONES WO CONTRAST [CT] Stat Exams 01/07/24 05:36 Completed Medication Summary Discontinued Medications Generic Name Dose Route Start Last Admin Trade Name Freq PRN Reason Stop Dose Admin Ceftriaxone Sodium 1,000 mg 01/07/24 07:21 Ceftriaxone Sodium 1000 Mg Inj Vial IM 01/07/24 07:22 STAT ONE Lidocaine HCl 20 ml 01/07/24 05:44 01/07/24 05:48 Lidocaine Hcl 2% Viscous 15 Ml Udcup PO 01/07/24 05:45 20 ml STAT ONE Administration Lidocaine HCl Confirm 01/07/24 05:46 Lidocaine Hcl 2% Viscous 15 Ml Udcup Administered 01/07/24 05:47 Dose 30 ml .ROUTE .STK-MED ONE <Jaden Flores - Last Filed: 01/07/24 06:58> - Progress Progress: improved Counseled pt/family regarding: diagnosis, need for follow-up, rad results <GHAZALA MOLINA - Last Filed: 01/07/24 07:33> - Progress Progress Note: 01/07/24 06:58 I discussed pt case w/ Dr Molina who will be taking over care at this time. CT results pending (Jaden Flores) Patient endorsed Dr. Molina at approximately [address] Molina advised follow-up pending CT scan. CT scan reveals inflammatory changes/infection without a drainable abscess at the right first molar area. Patient received a 1 g dose of Rocephin IM as well as Toradol 60 IM. Patient reassessed. Pain improved. Vital stable. A prescription for Augmentin and Toradol forwarded to patient's pharmacy. Patient has [place] at home for which she takes for joint pain. Patient resting comfortably. No distress. Patient agrees to follow-up with his dentist within 48 hours for evaluation. He voices no other complaints or concerns at this time. Portions of this note were created with voice recognition technology. There may be grammatical, spelling, punctuation or sound alike errors Complexity of problem addressed is low acute uncomplicated No critical care time Complex of data reviewed and analyzed is moderate. Test ordered test reviewed. Results analyzed and correlated clinically with history and physical exam. Risk of complication and or risk of morbidity/mortality patient management is moderate. A prescription for Toradol and Augmentin forwarded to patient's pharmacy. Vital stable. Time spent to discharge patient is approximately 15 minutes. Plan of care established for shared decision making. No social determinants of health present impede follow-up. Portions of this note were created with voice recognition technology. There may be grammatical, spelling, punctuation or sound alike errors 01/07/24 07:26 (GHAZALA MOLINA) <Jaden Flores - Last Filed: 01/07/24 06:58> - Departure Departure Disposition: Home Critical Care Time: No <GHAZALA MOLINA - Last Filed: 01/07/24 07:33> - Departure Clinical Impression: Dental infection, Carious teeth Condition: Stable Referrals: MARYANNE BLAKE MD [Primary Care Provider] - Follow up/PCP as directed Additional Instructions: Discharge/Care Plan TEREZA GARRISONMILAGROS CHRISTIANSON was seen on 01/07/24 in the Emergency Room. The patient was counseled regarding Diagnosis,Lab results, Imaging studies, need for follow up and when to return to the Emergency Room. Prescriptions given: Discharge Note I have spoken with the patient and/or caregivers. I have explained the patient's condition, diagnosis and treatment plan based on the information available to me at this time. I have answered the patient's and/or caregiver's questions and addressed any concerns. The patient and/or caregivers have as good understanding of the patient's diagnosis, condition and treatment plan as can be expected at this point. The vital signs have been stable. The patient's condition is stable and appropriate for discharge from the emergency department. The patient will pursue further outpatient evaluation with the primary care physician or other designated or consulting physician as outlined in the discharge instructions. The patient and/or caregivers are agreeable to this plan of care and follow-up instructions have been explained in detail. The patient and/or caregivers have received these instruction. The patient/and or caregivers are aware that any significant change in condition or worsening of symptoms should prompt an immediate return to this or the closest emergency department or call 911. Prescriptions: Amox Tr/Potass Clav. 875 mg [Augmentin 875-125 Tablet] 875 mg PO BID 7 Days #14 tablet Ketorolac Trometh 10 mg Tab [TORAdol 10 MG TABLET] 10 mg PO TID 5 Days #15 tablet
[2024-01-07] MEDS ORDERED: XYLOCAINE VISCOUS 2% 15 ML CUP ONE (05:46)
[2024-01-07] MEDS: XYLOCAINE VISCOUS 2% 15 ML CUP PO ONE (05:48)
[2024-01-07 06:12] VITALS: BP 109/72; PULSE 88
--- NOTE | 2024-01-07 06:54 | XRAY ---
CLINICAL HISTORY: tooth pain possible abscess TECHNIQUE: Axial and coronal images of the CT scan of the face were obtained with intravenous contrast enhancement. Imaging was performed on the multi-slice scanner and reporting was done at the workstation. COMPARISON: 10/12/2022 FINDINGS: The roots of the right lower jaw teeth show caries formation/a defective overlying buccal cortex, in particular to first molar tooth. There is an overlying soft tissue density involving related gingiva with extension to the right-sided oral mucosal space and superior oral sulcus. It is also extends to the right buccinator muscle and superficial to the anterior bony wall of the Right maxillary sinus implicating the related facial muscles with resultant prominent soft tissues of the right cheek. The muscles of the right cheek Including the masseter, Risorius, and platysma also appear edematous and swollen. Significant adjacent fat stranding was noted in subcutaneous tissue. The overlying skin appears slightly thickened however no ulceration noted. No discrete/drainable abscess. Multiple rounded enlarged right-sided cervical lymph nodes are seen predominantly noted at level II, 1 of them measures 1.0 cm in the short axis Overall imaging findings are suggestive of an infective/inflammatory process. No fracture was seen involving facial bones. Normal both temporomandibular joint. No fracture or dislocation was seen. Normal orbits bilaterally. The skull base and calvarium are unremarkable. Normal visualized paranasal sinuses. Normal pneumotization of mastoid bone. Mild mucosal thickening was noted in the right The visualized cervical spine is unremarkable. IMPRESSION: Overall imaging findings are suggestive of infective/inflammatory disease, likely secondary to dental pathology, involving right-sided cheek muscles and subcutaneous tissues, as detailed above. No discrete/drainable abscess. These findings have not been seen previously. Clinical and correlation follow-ups are advised. The 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 Electronically Signed by: Patricia Raza MD. (01/07/2024 06:50:20 EST)
[2024-01-07] MEDS ORDERED: TORAdol 30 mg Injection ONE (07:24)
[2024-01-07] MEDS ORDERED: XYLOCAINE 1% HCL 20 ML MDV ONE (07:25)
[2024-01-07] MEDS ORDERED: Rocephin 1000 MG INJ ONE (07:25)
[2024-01-07] MEDS: TORAdol 30 mg Injection IM ONE (07:33)
[2024-01-07] MEDS: Rocephin 1000 MG INJ IM ONE (07:33)
[2024-01-07 08:11] VITALS: RESP 20; O2SAT 98
== END 2024-01-07 07:50 | disposition home or self-care (01) ==
LOC: ED 05:10
DX: K04.7 Periapical abscess without sinus (principal); K02.9 Dental caries, unspecified; K08.89 Other specified disorders of teeth and supporting structures; Z79.891 Long term (current) use of opiate analgesic; Z79.899 Other long term (current) drug therapy; Z72.0 Tobacco use
CPT/HCPCS: 70486; 96372; 99283; J0696; J1885; A9270-GY

== ENCOUNTER 2024-05-22 06:37 | Day surgery (SDC) | payer BC ==
[2024-05-22 06:57] VITALS: RESP 16
[2024-05-22] MEDS: Lactated Ringers 1,000 ML IV SCH (06:58)
[2024-05-22] MEDS ORDERED: Xylocaine-Mpf 2% 5 Ml Vial ONE (08:09)
[2024-05-22] MEDS ORDERED: Versed 2 MG/2 ML Injection ONE (08:10)
[2024-05-22] MEDS ORDERED: DIPRIVAN 200 MG/20 ML IV ONE ×2 (08:10→08:19)
[2024-05-22 09:06] VITALS: TEMP 97.5
[2024-05-22 09:16] VITALS: BP 129/93; PULSE 77; O2SAT 100
--- NOTE | 2024-05-23 10:27 | OP ---
SURGERY DATE/TIME: 05/22/2024 2091 - [id number] PREOPERATIVE DIAGNOSIS: Chronic diarrhea and vomiting. POSTOPERATIVE DIAGNOSIS: Normal colon. PROCEDURE: Colonoscopy with cold forceps biopsies randomly through the colon. SURGEON: Gutierrez Bosch MD ANESTHESIA: Medications were given by the anesthesia department. INDICATIONS: The patient is a 33-year-old white male patient presenting now for issues with chronic diarrhea and vomiting. Upon discussion with the patient and his mother, they denied any use of THC, but there was a loss of a and father at about the same a year or so ago. The patient presents for his colonoscopic evaluation. He was appraised of the risks of the procedure including risk of perforation, phlebitis, untoward reaction to medication, bleeding, and missed lesions. The patient verbalized his understanding and desire to have procedure performed. DESCRIPTION OF PROCEDURE AND FINDINGS: The patient was given medications by the anesthesia department. He had continuous pulse oximetry, ECG monitoring, and intermittent blood pressure monitoring during the examination. He was placed in the left lateral decubitus position. Digital rectal examination was performed and revealed normal anal sphincter tone and no masses. A flexible Olympus videocolonoscope was used to intubate the rectum. A view of the colon was developed sequentially to the cecum including a short distance into the terminal ileum. Random biopsies were taken upon withdrawal of the scope throughout the colon. No mucosal lesions were otherwise noted. The scope was removed. The patient tolerated the procedure well and was sent back down to outpatient recovery in good condition. The prep was noted to be fair to good.
== END 2024-05-22 09:28 | disposition home or self-care (01) ==
LOC: SDC 06:37
PROVIDERS: ATTEND Family Medicine
DX: K52.9 Noninfective gastroenteritis and colitis, unspecified (principal); R11.10 Vomiting, unspecified
CPT/HCPCS: J2250; J2704

== ENCOUNTER 2025-04-04 12:48 | Observation (INO) | payer BC, MEDICAID ==
[2025-04-04 13:24] LABS: Absolute Neutrophil Ct (ANC) 7.24 x10^3/uL (1.78-5.38); BASOPHIL % 0.4 % (0.2-1.2); Basophil (Absolute #) 0.05 x10^3/uL (0.01-0.08); Eosinophil % 3.1 % (0.8-7.0); Eosinophil (Absolute #) 0.36 x10^3/uL (0.04-0.54); Hematocrit 44.7 % (40.1-51.0); IMMATURE GRAN # 0.04 x10^3u/L (0.001-0.031); IMMATURE GRAN % 0.3 % (0.001-0.429); Lymphocyte (Absolute #) 2.94 x10^3/uL (1.32-3.57); Lymphocytes % 25.6 % (21.8-53.1); Mean Cell Volume 87.5 fL (79.0-92.2); Mean Corpuscular Hemoglobin 29.4 pg (25.7-32.2); Mean Corpuscular Hgb Concent. 33.6 g/dL (32.3-36.5); Mean Platelet Volume 9.7 fL (9.4-12.4); Monocyte (Absolute #) 0.84 x10^3/uL (0.30-0.82); Monocytes % 7.3 % (5.3-12.2); Neutrophil % 63.3 % (34.0-67.9); Platelet Count 332 x10^3/uL (163-337); Red Blood Count 5.11 x10^6/uL (4.63-6.08); Red Cell Distribution Width 13.1 % (11.6-14.4); White Blood Count 11.5 x10^3/uL (4.23-9.07)
[2025-04-04 13:38] LABS: ALBUMIN 4.1 g/dL (3.5-5.0); ANION GAP 14.4 MEQ/L (5-15); BILIRUBIN,TOTAL 0.3 mg/dL (0.2-1.3); Calcium 8.6 mg/dL (8.4-10.2); Creatinine 1 1.02 mg/dL (0.66-1.25); EST GLOMERULAR FILTRATION RATE 100.2 ML/MIN; Potassium 3.7 mmol/L (3.5-5.1); Total Protein 6.4 g/dL (6.3-8.2)
[2025-04-04] MEDS ORDERED: PIPERACILLIN/TAZOBACTAM IV ONE (13:54)
[2025-04-04] MEDS ORDERED: Sodium Chloride 0.9% 100 ML ONE (13:55)
[2025-04-04] MEDS: PIPERACILLIN/TAZOBACTAM 4.5 GM in Sodium Chloride 0.9% 100 ML IV STA (13:58)
--- NOTE | 2025-04-04 14:35 | ERPHSYRPT ---
- History of Present Illness Source: patient Exam Limitations: no limitations Patient Subjective Stated Complaint: PT HERE FOR SWELLING TO RIGHT SIDE OF FACE FOR A COUPLE DAYS NOW, WORSE TODAY,NO FEVER. Triage Nursing Assessment: PT ALERT, WALKED IN, HAS SWELLING AND REDNESS TO RIGHT SIDE OF FACE, HAS MULTI CARIES AND BROKEN TEETH Physician History: Patient had some tooth pain started about 2 days ago. He woke up this morning it was getting worse was low but swollen over the last 6 to 8 hours he had pretty significant swelling in his right cheek.It is erythematous andEdematous. It is painful. He does not have any fever chills nausea vomiting or other systemic or toxic symptoms.Nothing makes his symptoms worse or better. There is no Ludewig's angina or trismus Allergies/Adverse Reactions: No Known Drug Allergies Allergy (Verified 04/04/25 12:56) Home Medications: Pregabalin [Lyrica] 300 mg PO BID 03/15/21 [History] Doxepin HCl 30 mg PO HS 10/23/23 [History] Oxycodone HCl/Acetaminophen [Oxycodone-Acetaminophn 7.5-325] 1 each PO QID 05/22/24 [History] Hx Tetanus, Diphtheria Vaccination/Date Given: Yes (2023) Hx Influenza Vaccination/Date Given: No Hx Pneumococcal Vaccination/Date Given: No Travel Risk - International Travel Have you traveled outside of the country in past 3 weeks: No - Emerging Infectious Disease Are you exhibiting symptoms associated with any current EIDs: No - Review of Systems Constitutional: No Symptoms Eyes: No Symptoms Ears, Nose, & Throat: No Symptoms Respiratory: No Symptoms All Other Systems: Reviewed and Negative - Past Medical History Pertinent Past Medical History: Yes Neurological History: No Pertinent History ENT History: No Pertinent History Cardiac History: No Pertinent History Respiratory History: No Pertinent History Endocrine Medical History: No Pertinent History Musculoskeletal History: Arthritis, Fractures GI Medical History: Hernia History: No Pertinent History Psycho-Social History: Anxiety, Depression Male Reproductive Disorders: No Pertinent History Other Medical History: ALLERGIES, ECZEMA, MRSA as a child but unsure of source - Past Surgical History Past Surgical History: Yes Neuro Surgical History: No Pertinent History Cardiac: No Pertinent History Respiratory: No Pertinent History Gastrointestinal: Hernia Repair Genitourinary: No Pertinent History Musculoskeletal: No Pertinent History Male Surgical History: No Pertinent History Other Surgical History: TUBES IN EARS Significant Family History: no pertinent family hx - Social History Smoking Status: Current every day smoker How long have you smoked: 15 yrs Exposure to second hand smoke: Yes Drug Use: none - Social Determinants of Health Will the patient participate in the screening: Yes Do you worry about a steady place to live?: No Do you have any problems with any of the following?: No known problems In the past 12 months,have you had to go without utilities?: No Transportation Issues: No Has anyone in your support network made you feel unsafe?: No Have you or anyone in your house had to go w/o enough food: No - Nursing Vital Signs Nursing Vital Signs: Initial Vital Signs Temperature 96.8 F 04/04/25 12:59 Pulse Rate 114 H 04/04/25 12:59 Respiratory Rate 18 04/04/25 12:59 Blood Pressure 138/96 04/04/25 12:59 O2 Sat by Pulse Oximetry 95 04/04/25 12:59 Pain Scale Pain Intensity 4 - Physical Exam General Appearance: no apparent distress Eye Exam: other (Edema around the right cheek and right eye. There is some erythema but it could be secondary to the skin expanding and not necessarily infection. It is a little bit warm to the touch.) Ears, Nose, Throat Exam: other (His pharynx is patent. There is no compromise. The floor of his mouth is not involved. The symptoms are mainly in his maxillary area not mandibular.) Neck Exam: normal inspection Respiratory Exam: normal breath sounds Skin Exam: normal color, warm SpO2: 90 Comments: There is no evidence externally of abscess formation. The patient just had a bunch of soft edema in his lower eyelid and cheek. 04/04/25 17:48 - Course Nursing assessment & vital signs reviewed: Yes Ordered Tests: Active Orders 24 hr Category Date Time Status FACIAL BONES WITH CONTRAST [CT] Stat Exams 04/04/25 14:54 Completed CBC W DIFF Stat Lab 04/04/25 13:20 Completed CMP Stat Lab 04/04/25 13:20 Completed Medication Summary Discontinued Medications Generic Name Dose Route Start Last Admin Trade Name Freq PRN Reason Stop Dose Admin Ampicillin Sodium/Sulbactam Sodium Confirm 04/04/25 16:52 Ampicillin /Sulbactam 3 G/Vial Administered 04/04/25 16:53 Dose 3 g .ROUTE .STK-MED ONE Piperacillin Sod/Tazobactam 100 mls @ 200 mls/hr 04/04/25 13:01 04/04/25 15:01 Sod 4.5 gm/ Sodium Chloride IV 04/04/25 13:30 Infused STAT STA Infusion Sodium Chloride Confirm 04/04/25 13:55 Sodium Chloride 0.9% Administered 04/04/25 13:56 Dose 100 mls @ ud .ROUTE .STK-MED ONE Ampicillin Sodium/Sulbactam 100 mls @ 300 mls/hr 04/04/25 16:50 04/04/25 16:56 Sodium 3 g/ Sodium Chloride IV 04/04/25 17:09 300 ml/hr STAT ONE 300 mls/hr Administration Sodium Chloride Confirm 04/04/25 16:53 Sodium Chloride 100ml Mini-Bag Plus Administered 04/04/25 16:54 Dose 100 mls @ ud IV .STK-MED ONE Oxycodone/Acetaminophen 1 tab 04/04/25 17:00 04/04/25 17:02 Oxycodone / Apap 10/325 Mg 1 Tablet PO 04/04/25 17:01 1 tab STAT STA Administration Oxycodone/Acetaminophen Confirm 04/04/25 17:00 Oxycodone Hcl/Apap 5 Mg/325 Mg Tablet Administered 04/04/25 17:01 Dose 1 tab .ROUTE .STK-MED ONE Oxycodone/Acetaminophen Confirm 04/04/25 17:01 Oxycodone / Apap 10/325 Mg 1 Tablet Administered 04/04/25 17:02 Dose 1 tab .ROUTE .STK-MED ONE Piperacillin Sod/Tazobactam Sod Confirm 04/04/25 13:54 Piperacillin/Tazobactam Sodium 4.5 Gm Vial Administered 04/04/25 13:55 Dose 4.5 gm IV .STK-MED ONE Lab/Rad Data: Laboratory Result Diagrams 04/04/25 13:20 04/04/25 13:20 Laboratory Results 04/04/25 04/04/25 Range/Units 13:20 13:20 WBC 11.5 H (4.23-9.07) x10^3/uL RBC 5.11 (4.63-6.08) x10^6/uL Hgb 15.0 (13.7-17.5) g/dL Hct 44.7 (40.1-51.0) % MCV 87.5 (79.0-92.2) fL MCH 29.4 (25.7-32.2) pg MCHC 33.6 (32.3-36.5) g/dL RDW 13.1 (11.6-14.4) % Plt Count 332 (163-337) x10^3/uL MPV 9.7 (9.4-12.4) fL Gran % 63.3 (34.0-67.9) % Immature Gran % (Auto) 0.3 (0.001-0.429) % Nucleat RBC Rel Count 0.0 (0.00-0.2) % Eos # (Auto) 0.36 (0.04-0.54) x10^3/uL Immature Gran # (Auto) 0.04 H (0.001-0.031) x10^3u/L Absolute Lymphs (auto) 2.94 (1.32-3.57) x10^3/uL Absolute Monos (auto) 0.84 H (0.30-0.82) x10^3/uL Absolute Nucleated RBC 0.00 (0.00-0.012) x10^3u/L Lymphocytes % 25.6 (21.8-53.1) % Monocytes % 7.3 (5.3-12.2) % Eosinophils % 3.1 (0.8-7.0) % Basophils % 0.4 (0.2-1.2) % Absolute Granulocytes 7.24 H (1.78-5.38) x10^3/uL Basophils # 0.05 (0.01-0.08) x10^3/uL Sodium 137 (135-145) mmol/L Potassium 3.7 (3.5-5.1) mmol/L Chloride 99 (98-107) mmol/L Carbon Dioxide 27 (22-30) mmol/L Anion Gap 14.4 (5-15) MEQ/L BUN 14 (9-20) mg/dL Creatinine 1.02 (0.66-1.25) mg/dL Estimated GFR 100.2 ML/MIN Glucose 143 H (74-106) mg/dL Calcium 8.6 (8.4-10.2) mg/dL Total Bilirubin 0.30 (0.2-1.3) mg/dL AST 24 (17-59) U/L ALT 25 (0-50) U/L Alkaline Phosphatase 69 (38-126) U/L Serum Total Protein 6.4 (6.3-8.2) g/dL Albumin 4.1 (3.5-5.0) g/dL - Progress Progress: unchanged Progress Note: Has a concern for periorbital cellulitis in this patient I got a CT and it revealed periorbital cellulitis. I am going to put him on some IV antibiotics and call the hospitalist.12/19 16:32 I spoke with our hospitalist who agreed to accept the patient if there was nothing surgical. I went ahead and had a consult from The pbx supervisor on-call at [facility] in [place].He said it does not look surgical to him. He also gave me his cell number and said that he will consult with our hospitalist.His cell number is [phone].I then spoke with Dr. Hernandez again. I am going to add vancomycin to the Zosyn.We will admit him to the floor. The pbx supervisor said to watch for decreases in extraocular movements and also if the swelling gets worse or pain gets worse we should immediately get a CT but we should also probably get a CT in a day or 2 to check for extension or resolution. 04/04/25 17:46 04/04/25 17:[address] Other (evan) Medical Desision Making - External Record(s) Reviewed Records reviewed as a part of evaluation & management: Inpatient - Discussion of managment Care discussed with:: hospitalist Reviewed:: Test results Agreed on:: Treatment plan Will see patient: in hospital - Diagnostic Testing Diagnostic test were ordered, analyzed, and reviewed by me: Yes - Risk of complications The pt has a mod risk of morbidity or mortality based on: Need for prescription drug management - Departure Departure Disposition: In-patient Admission Clinical Impression: Periorbital cellulitis of right eye Condition: Stable Critical Care Time: No Referrals: MARYANNE BLAKE MD [Primary Care Provider, [facility]] - Follow up/PCP as directed
--- NOTE | 2025-04-04 16:03 | XRAY ---
CLINICAL HISTORY: pain swelling COMPARISON: CT dated 01/07/2024. TECHNIQUE: Contrast-enhanced CT scan of the maxillofacial region was performed, with sagittal and coronal multiplanar reconstruction. 80 cc of isovue 370 was administered for post-contrast images. One of the following dose reduction techniques was utilized for this exam: Automated exposure control, adjustment of the mA and/or kV according to patient size, and use of iterative reconstruction. CTDI: 44.33 mGy, DLP: 863.04 mGy-cm. FINDINGS: The right naso-libial fold shows diffuse soft tissue thickening and edema extending upward superficial to the right nasal bone and associated with right pereseptal localized fluid collection measuring about 3.8x1.3 cm in axial dimensions, and downward superficial to the alveolar process of the maxilla and lower jaw. Inflammatory process extends to the gingiva with extension to the right-sided oral mucosal space and superior oral sulcus. It also extends to the right buccinator muscle. The muscles of the right cheek include the platysma. The roots of the last upper molar tooth and right lower jaw teeth still show caries formation/a defective overlying buccal cortex, particularly in particular to molar tooth. Multiple rounded enlarged right-sided cervical lymph nodes are seen, predominantly noted at level II, 1 of them measures 1.0 cm in the short axis. Sinuses: increased both maxillary mucopresotale thickening, being more on the right side newly developed partial opacification of the ethmoidal air cells. Otherwise, the rest of the paranasal sinuses are clear. No evidence of fluid levels. Osteomeatal complexes are obliterated. Nasal Cavity: The nasal cavity is unremarkable. No masses, polyps, or deviations. Orbits: Orbits are normal in size and shape. The extraocular muscles and optic nerves are normal. No evidence of orbital masses or proptosis. Maxilla and Mandible: No fractures, lytic or sclerotic lesions. Facial Bones: No fractures or deformities. Zygomatic arches, nasal bones, and other facial structures are intact. Vascular Structures: Normal enhancement of the facial vascular structures. No evidence of vascular malformations or aneurysms. Temporomandibular Joints (TMJ): Normal appearance of the TMJ bilaterally. No evidence of joint effusion, degenerative changes, or dislocation. IMPRESSION: 1. Overall imaging findings are suggestive of an infective/inflammatory process with right orbital perseptal abscess formation. (progressed). 2. Bilateral maxillary and ethmoid sinusitis (increased). 3. Obliterated osteometal complex (newly developed). Electronically Signed by: Patricia Raza MD. (04/04/2025 16:01:05 EDT)
[2025-04-04] MEDS ORDERED: Unasyn 3 GM Vial ONE (16:52)
[2025-04-04] MEDS ORDERED: Sodium Chloride 100ML MINI-BAG PLUS 100 ML IV ONE (16:53)
[2025-04-04] MEDS: Unasyn 3 GM Vial*** 3 G in Sodium Chloride 0.9% 100 ML IV ONE (16:56)
[2025-04-04] MEDS ORDERED: PERCOCET TABLET 5/325MG ONE ×2 (17:00→22:07)
[2025-04-04] MEDS ORDERED: OXYCODONE-ACETAMINOPHEN 10-325 ONE (17:01)
[2025-04-04] MEDS: OXYCODONE-ACETAMINOPHEN 10-325 PO STA (17:02)
[2025-04-04] MEDS ORDERED: VANCOMYCIN 2 GRAM/400 ML BAG 2 GM/400 ML PIGGYBACK IV ONE (17:54)
[2025-04-04] MEDS: VANCOMYCIN 2 GRAM/400 ML BAG 2 GM/400 ML PIGGYBACK IV ONE (17:55)
[2025-04-04] MEDS ORDERED: TYLENOL 325 MG PO PRN (20:25)
--- NOTE | 2025-04-04 21:12 | PCM.HP ---
History of Present Illness - Chief Complaint Chief Complaint: Right eye swelling and tenderness Date: 04/04/25 History of Present Illness: 34-year-old man with history of chronic pain syndrome, who presents with right eye swelling and tenderness. Patient noted onset of right sided upper tooth pain about 3 to 4 days ago. Yesterday, he had the onset of swelling and tenderness around his right eye. It worsened severely this morning after waking up, making it difficult to open his right eye, so he came to the hospital. He denies any drainage. Denies any vision acuity changes or visual field changes. No difficulty or pain on moving his eyes. No hearing changes, no fevers. He tried ice packs and some prior Keflex that he had from a prior infection, without relief. Nondiabetic. Smokes 1 pack/day. - Review of Systems All Other Systems: Reviewed and Negative Medications & Allergies Home Medications: Home Medication List Pregabalin [Lyrica] 300 mg PO BID 03/15/21 [History Confirmed 04/04/25] Doxepin HCl 30 mg PO HS 10/23/23 [History Confirmed 04/04/25] Oxycodone HCl/Acetaminophen [Oxycodone-Acetaminophn 7.5-325] 1 each PO Q4-6HPRN PRN 05/22/24 [History Confirmed 04/04/25] Allergies/Adverse Reactions: Allergies Allergy/AdvReac Type Severity Reaction Status Date / Time No Known Drug Allergies Allergy Verified 04/04/25 12:56 - Past Medical History Past Medical History: Yes Neurological History: No Pertinent History ENT History: No Pertinent History Cardiac History: No Pertinent History Respiratory History: No Pertinent History Endocrine Medical History: No Pertinent History Musculoskelatal History: Arthritis, Fractures GI Medical History: Hernia History: No Pertinent History Pyscho-Social History: Anxiety, Depression Male Reproductive Disorders: No Pertinent History Comment: ALLERGIES, ECZEMA, MRSA as a child but unsure of source - Past Surgical History Past Surgical History: Yes Neuro Surgical History: No Pertinent History Cardiac History: No Pertinent History Respiratory Surgery: No Pertinent History GI Surgical History: Hernia Repair Genitourinary Surgical Hx: No Pertinent History Musculskeletal Surgical Hx: No Pertinent History Male Surgical History: No Pertinent History Other Surgical History: TUBES IN EARS Significant Family History: heart disease, cancer, diabetes - Social History Smoking Status: Heavy tobacco smoker How long have you smoked: 20 Exposure to second hand smoke: Yes Alcohol: None Drug Use: none - Social Determinants of Health Will the patient participate in the screening: Yes Do you worry about a steady place to live?: No Do you have any problems with any of the following?: No known problems In the past 12 months,have you had to go without utilities?: No Have you or anyone in your house had to go without enough: No Transportation Issues: No Has anyone in your support network made you feel unsafe?: No Does the patient want assistance with any of the above?: No - Physical Exam Vital Signs: Vital Signs - 24 hr Temp Pulse Resp BP BP Pulse Ox 04/04/25 20:00 99.1 F 91 H 18 133/88 95 04/04/25 18:30 99.1 F 91 H 18 133/88 95 04/04/25 17:49 90 L 04/04/25 14:30 107/77 04/04/25 14:07 108/86 97 04/04/25 14:00 90 L 04/04/25 13:51 95 04/04/25 13:40 95 04/04/25 13:33 94 L 04/04/25 13:00 138/97 92 L 04/04/25 12:59 96.8 F 114 H 18 138/96 95 Physical Exam GEN: Sitting up in bed in no acute distress. HENT: Edema over the right upper part of the face, slightly over the upper eyelid, but mainly involving the lower eyelid and right maxilla. Some flattening of the right nasolabial fold as a result. No erythema noted no drainage. EYES: Normal inspection, anicteric sclera, extraocular movements intact. NECK: Supple, full range of motion CV: Regular rate and rhythm, no murmurs, no gallops. No JVD or edema. PULM: Clear to auscultation bilaterally, no work of breathing. On room air. ABD: Nondistended, nontender. MSK: No joint effusions, full range of motion SKIN: No rashes, normal color. NEURO: Face symmetric, no focal motor or sensory deficits. PSYCH: Alert, oriented x 3 Results - Labs Lab/Micro Results: Lab Results-Last 24 Hours 04/04/25 04/04/25 Range/Units 13:20 13:20 WBC 11.5 H (4.23-9.07) x10^3/uL RBC 5.11 (4.63-6.08) x10^6/uL Hgb 15.0 (13.7-17.5) g/dL Hct 44.7 (40.1-51.0) % MCV 87.5 (79.0-92.2) fL MCH 29.4 (25.7-32.2) pg MCHC 33.6 (32.3-36.5) g/dL RDW 13.1 (11.6-14.4) % Plt Count 332 (163-337) x10^3/uL MPV 9.7 (9.4-12.4) fL Gran % 63.3 (34.0-67.9) % Immature Gran % (Auto) 0.3 (0.001-0.429) % Nucleat RBC Rel Count 0.0 (0.00-0.2) % Eos # (Auto) 0.36 (0.04-0.54) x10^3/uL Immature Gran # (Auto) 0.04 H (0.001-0.031) x10^3u/L Absolute Lymphs (auto) 2.94 (1.32-3.57) x10^3/uL Absolute Monos (auto) 0.84 H (0.30-0.82) x10^3/uL Absolute Nucleated RBC 0.00 (0.00-0.012) x10^3u/L Lymphocytes % 25.6 (21.8-53.1) % Monocytes % 7.3 (5.3-12.2) % Eosinophils % 3.1 (0.8-7.0) % Basophils % 0.4 (0.2-1.2) % Absolute Granulocytes 7.24 H (1.78-5.38) x10^3/uL Basophils # 0.05 (0.01-0.08) x10^3/uL Sodium 137 (135-145) mmol/L Potassium 3.7 (3.5-5.1) mmol/L Chloride 99 (98-107) mmol/L Carbon Dioxide 27 (22-30) mmol/L Anion Gap 14.4 (5-15) MEQ/L BUN 14 (9-20) mg/dL Creatinine 1.02 (0.66-1.25) mg/dL Estimated GFR 100.2 ML/MIN Glucose 143 H (74-106) mg/dL Calcium 8.6 (8.4-10.2) mg/dL Total Bilirubin 0.30 (0.2-1.3) mg/dL AST 24 (17-59) U/L ALT 25 (0-50) U/L Alkaline Phosphatase 69 (38-126) U/L Serum Total Protein 6.4 (6.3-8.2) g/dL Albumin 4.1 (3.5-5.0) g/dL - Radiology Impressions Radiology Exams & Impressions: Radiology Procedures Category Date Time Status FACIAL BONES WITH CONTRAST [CT] Stat Exams 04/04/25 14:[address] face: Diffuse soft tissue thickening and edema at the right nasolabial fold, extending superiorly to the right nasal bone and associated with a right preseptal localized fluid collection measuring 3.8 x 1.3 cm in axial dimension, and extending inferiorly into the alveolar process of the maxilla and lower jaw. Extends to the gingiva with extension to the right sided oral mucosal space and superior oral sulcus, in the right buccinator muscle. Multiple rounded, enlarged, right sided cervical lymph nodes are seen. Increased bilateral maxillary mucosal Jon thickening, worse on the right side. Assessment/Plan (1) Periorbital cellulitis of right eye Current Visit: Yes Status: Acute Assessment & Plan: 34-year-old man with history of chronic pain syndrome tobacco dependence, who presents with preseptal cellulitis and abscess. ## Preseptal cellulitis and abscess likely secondary to sinusitis or possibly tooth infection, given location and extension to the maxilla. Currently no compromise to extraocular movements or visual acuity. ED provider spoke with on- call chef instructor at [facility] in [place], who said no need for surgical evaluation. Recommended repeat CT in 1 to 2 days to check for extension or resolution, as well as immediate CT if has worsening swelling, pain, or decrease in extraocular movements. I do not have the name of that ophthalmologis t, but his cell phone number is [phone], and he was willing to do any further consults phone if needed. Start patient on vancomycin and Unasyn for coverage of likely perioral pathogens from the mouth Admit to inpatient Monitor for any changes in extraocular movements, with plan for stat CT if worsening or if develops worsening swelling Plan to repeat CT on Saturday to check for improvement If improving, can likely finish of the oral antibiotics complete course Repeat CBC in the morning ## Tobacco dependence patient smokes 1 pack/day. Patient declined nicotine patch, citing eczema causing reaction to the patch Patient states he wants to use his own nicotine pouches as needed for cravings Counseled on smoking cessation ## Chronic pain syndrome Resume home oxycodone 7.5 PRN Resume home Lyrica and doxepin CODE STATUS: DNR/DNI (confirmed with patient today) Diet: Regular Prophylaxis: Low risk, encourage ambulation Dispo: Admit to inpatient Entirety of encounter took place via live audio/video telemedicine device, with remote physician and patient in hospital, with the assistance of bedside nurse. Code(s): L03.213 - PERIORBITAL CELLULITIS Telemedicine Encounter - Telemedicine Encounter Telemedicine Encounter: "The entirety of this encounter was performed via Telemedicine" This visit was performed using real-time audio and video connection between my location and thepatients locationwith the assistance of a surrogateat the patients location. Written or verbal consent was obtained from the patient/guardian to perform this [facility]. Any patient questions regarding the telemedicine interaction were answered.
[2025-04-04] MEDS ORDERED: LYRICA 150MG ONE (22:07)
[2025-04-04] MEDS: NON-FORMULARY ITEM (Pregabalin [Lyrica] 300 MG Capsule) PO SCH (22:09)
[2025-04-04] MEDS: NON-FORMULARY ITEM (Oxycodone Hcl/Acetaminophen [Oxycodone-Acetaminophn 7.5-325] 1 EACH Ta PO PRN (22:10)
[2025-04-04] MEDS: DOXEPIN HCL 10 MG/ML PO SCH (22:12)
[2025-04-05] MEDS ORDERED: PERCOCET TABLET 5/325MG ONE (02:55)
[2025-04-05 05:45] LABS: Absolute Neutrophil Ct (ANC) 7.78 x10^3/uL (1.78-5.38); BASOPHIL % 0.5 % (0.2-1.2); Basophil (Absolute #) 0.07 x10^3/uL (0.01-0.08); Eosinophil (Absolute #) 0.64 x10^3/uL (0.04-0.54); Hematocrit 44.5 % (40.1-51.0); IMMATURE GRAN # 0.03 x10^3u/L (0.001-0.031); IMMATURE GRAN % 0.2 % (0.001-0.429); Lymphocyte (Absolute #) 3.18 x10^3/uL (1.32-3.57); Lymphocytes % 24.9 % (21.8-53.1); Mean Cell Volume 87.6 fL (79.0-92.2); Mean Corpuscular Hemoglobin 29.5 pg (25.7-32.2); Mean Corpuscular Hgb Concent. 33.7 g/dL (32.3-36.5); Mean Platelet Volume 10.4 fL (9.4-12.4); Monocyte (Absolute #) 1.08 x10^3/uL (0.30-0.82); Monocytes % 8.5 % (5.3-12.2); Neutrophil % 60.9 % (34.0-67.9); Platelet Count 310 x10^3/uL (163-337); Red Blood Count 5.08 x10^6/uL (4.63-6.08); Red Cell Distribution Width 13.2 % (11.6-14.4); White Blood Count 12.8 x10^3/uL (4.23-9.07)
--- NOTE | 2025-04-05 05:46 | PCM.NOTE ---
Date and Time: 04/05/25 0543 Subjective Assessment: Mr. Manriquez is a 34-year-old male with a history of chronic pain syndrome and tobacco dependence who presented 04/04/25 with acute onset of right periorbital swelling and tenderness. The symptoms began with right upper dental pain approximately 3 to 4 days prior, followed by progressive swelling around the right eye that acutely worsened upon awakening this morning, leading to difficulty opening the eye. He denied any drainage, changes in visual acuity or chahal, or pain with extraocular movements. He also denied fevers, hearing changes, or systemic symptoms. The patient had attempted self-treatment with ice packs and leftover Keflex without relief. CT of the face demonstrated extensive soft tissue edema and inflammation involving the right nasolabial fold, extending superiorly to the nasal bone and associated with a localized preseptal fluid collection measuring 3.8 x 1.3 cm, with extension into the alveolar process of the right maxilla and lower jaw, gingiva, right buccinator muscle, and right oral mucosal space. Associated findings included multiple enlarged right cervical lymph nodes and significant bilateral maxillary sinus mucosal thickening, worse on the right. These findings are consistent with preseptal cellulitis and abscess, likely originating from a dental source or possibly secondary to sinusitis given the degree of mucosal involvement and anatomical spread. Given the absence of orbital involvement at this timespecifically no impairment of extraocular movements, no visual deficits, and no systemic signs of sepsisthe case was discussed with the on-call weigher and mixer at [facility] in [place], who advised no immediate surgical intervention but recommended close monitoring with a repeat CT in 1-2 days to assess for progression. The weigher and mixer also provided a direct phone number for any additional consultation needs. The patient was admitted to the hospital and initiated on intravenous vancomycin and Unasyn for broad-spectrum coverage including oral marck and skin pathogens. He will be closely monitored for any progression of swelling, changes in extraocular movements, or vision changes, with a low threshold for urgent imaging if clinically indicated. Repeat CT is planned for Saturday to assess interval changes. If clinical and radiographic improvement is noted, the patient may be transitioned to oral antibiotics to complete the treatment course. 04/05/25: Met with patient bedside. Endorses improvement in right eye swelling and jaw cb n. Patient states he has a cracked tooth which he has not seen the dentist for. Denies pain with EOM, diplopia, proptosis, or vision changes. - Review of Systems Constitutional: No Symptoms Eyes: Eye Pain, Other (periorbital edema) Ears, Nose, & Throat: Mouth Pain Respiratory: No Symptoms Cardiac: No Symptoms Abdominal/Gastrointestinal: No Symptoms Genitourinary Symptoms: No Symptoms Musculoskeletal: No Symptoms Skin: Cellulitis (right eye) Neurological: No Symptoms Psychological: No Symptoms Endocrine: No Symptoms Hematologic/Lymphatic: No Symptoms Immunological/Allergic: No Symptoms Objective Exam General Appearance: no apparent distress Neurologic Exam: alert, oriented x 3, cooperative Skin Exam: other (erythema right periorital cellulitis) Eye Exam: PERRL, EOMI, eyes nml inspection Ears, Nose, Throat Exam: normal ENT inspection Neck Exam: normal inspection Respiratory Exam: normal breath sounds, lungs clear Cardiovascular Exam: regular rate/rhythm, normal heart sounds Gastrointestinal/Abdomen Exam: soft, normal bowel sounds Extremity Exam: normal inspection Back Exam: normal inspection Male Genitalia Exam: deferred Rectal Exam: deferred Objective Data Vital Signs: Vital Signs - 24 hr Temp Pulse Resp BP BP Pulse Ox 04/05/25 04:00 98.9 F 103 H 19 136/87 96 04/04/25 23:56 99.0 F 93 H 18 127/79 94 L 04/04/25 20:00 99.1 F 91 H 18 133/88 95 04/04/25 18:30 99.1 F 91 H 18 133/88 95 04/04/25 17:49 90 L 04/04/25 14:30 107/77 04/04/25 14:07 108/86 97 04/04/25 14:00 90 L 04/04/25 13:51 95 04/04/25 13:40 95 04/04/25 13:33 94 L 04/04/25 13:00 138/97 92 L 04/04/25 12:59 96.8 F 114 H 18 138/96 95 Pain Assessment - Last Documented Pain Intensity 0 Intake and Output: Intake & Output 04/02/25 04/03/25 04/04/25 04/05/25 11:59 11:59 11:59 11:59 Intake Total 240 Balance 240 Weight 110.2 kg Lab Results: Lab Results-Last 24 Hours 04/04/25 04/04/25 Range/Units 13:20 13:20 WBC 11.5 H (4.23-9.07) x10^3/uL RBC 5.11 (4.63-6.08) x10^6/uL Hgb 15.0 (13.7-17.5) g/dL Hct 44.7 (40.1-51.0) % MCV 87.5 (79.0-92.2) fL MCH 29.4 (25.7-32.2) pg MCHC 33.6 (32.3-36.5) g/dL RDW 13.1 (11.6-14.4) % Plt Count 332 (163-337) x10^3/uL MPV 9.7 (9.4-12.4) fL Gran % 63.3 (34.0-67.9) % Immature Gran % (Auto) 0.3 (0.001-0.429) % Nucleat RBC Rel Count 0.0 (0.00-0.2) % Eos # (Auto) 0.36 (0.04-0.54) x10^3/uL Immature Gran # (Auto) 0.04 H (0.001-0.031) x10^3u/L Absolute Lymphs (auto) 2.94 (1.32-3.57) x10^3/uL Absolute Monos (auto) 0.84 H (0.30-0.82) x10^3/uL Absolute Nucleated RBC 0.00 (0.00-0.012) x10^3u/L Lymphocytes % 25.6 (21.8-53.1) % Monocytes % 7.3 (5.3-12.2) % Eosinophils % 3.1 (0.8-7.0) % Basophils % 0.4 (0.2-1.2) % Absolute Granulocytes 7.24 H (1.78-5.38) x10^3/uL Basophils # 0.05 (0.01-0.08) x10^3/uL Sodium 137 (135-145) mmol/L Potassium 3.7 (3.5-5.1) mmol/L Chloride 99 (98-107) mmol/L Carbon Dioxide 27 (22-30) mmol/L Anion Gap 14.4 (5-15) MEQ/L BUN 14 (9-20) mg/dL Creatinine 1.02 (0.66-1.25) mg/dL Estimated GFR 100.2 ML/MIN Glucose 143 H (74-106) mg/dL Calcium 8.6 (8.4-10.2) mg/dL Total Bilirubin 0.30 (0.2-1.3) mg/dL AST 24 (17-59) U/L ALT 25 (0-50) U/L Alkaline Phosphatase 69 (38-126) U/L Serum Total Protein 6.4 (6.3-8.2) g/dL Albumin 4.1 (3.5-5.0) g/dL Radiology Exams: Radiology Procedures Category Date Time Status FACIAL BONES WITH CONTRAST [CT] Stat Exams 04/04/25 14:54 Completed Medications: Medications Generic Name Dose Route Start Last Admin Trade Name Freq PRN Reason Stop Dose Admin Acetaminophen 650 mg 04/04/25 20:25 Acetaminophen 325 Mg Tablet PO 05/04/25 20:24 Q6H PRN PRN PAIN AND/OR FEVER Non-Formulary Medication 30 mg 04/04/25 22:00 04/04/25 22:12 Doxepin Hcl [Doxepin Hcl] PO 05/04/25 21:59 Not Given HS MARGARITA Non-Formulary Medication 300 mg 04/04/25 22:00 04/04/25 22:09 Pregabalin [Lyrica] PO 05/04/25 21:59 300 mg BID MARGARITA Administration Non-Formulary Medication 1 each 04/04/25 20:25 04/05/25 02:56 Oxycodone Hcl/Acetaminophen [Oxycodone-Acetaminophn 7.5-325] PO 1 each Q4-6HPRN PRN Administration PAIN Discontinued Medications Generic Name Dose Route Start Last Admin Trade Name Freq PRN Reason Stop Dose Admin Ampicillin Sodium/Sulbactam Sodium Confirm 04/04/25 16:52 Ampicillin /Sulbactam 3 G/Vial Administered 04/04/25 16:53 Dose 3 g .ROUTE .STK-MED ONE Piperacillin Sod/Tazobactam 100 mls @ 200 mls/hr 04/04/25 13:01 04/04/25 15:01 Sod 4.5 gm/ Sodium Chloride IV 04/04/25 13:30 Infused STAT STA Infusion Sodium Chloride Confirm 04/04/25 13:55 Sodium Chloride 0.9% Administered 04/04/25 13:56 Dose 100 mls @ ud .ROUTE .STK-MED ONE Ampicillin Sodium/Sulbactam 100 mls @ 300 mls/hr 04/04/25 16:50 04/04/25 17:51 Sodium 3 g/ Sodium Chloride IV 04/04/25 17:09 Infused STAT ONE Infusion Sodium Chloride Confirm 04/04/25 16:53 Sodium Chloride 100ml Mini-Bag Plus Administered 04/04/25 16:54 Dose 100 mls @ ud IV .STK-MED ONE Vancomycin HCl 2 gm in 400 mls @ 133.333 mls/hr 04/04/25 17:51 04/04/25 17:55 Vancomycin 2 Gram/400 Ml Bag IV 04/04/25 20:50 133 ml/hr STAT ONE 133 mls/hr Administration Vancomycin HCl Confirm 04/04/25 17:54 Vancomycin 2 Gram/400 Ml Bag Administered 04/04/25 17:55 Dose 2 gm in 400 mls @ ud IV .STK-MED ONE Oxycodone/Acetaminophen 1 tab 04/04/25 17:00 04/04/25 17:02 Oxycodone / Apap 10/325 Mg 1 Tablet PO 04/04/25 17:01 1 tab STAT STA Administration Oxycodone/Acetaminophen Confirm 04/04/25 17:00 Oxycodone Hcl/Apap 5 Mg/325 Mg Tablet Administered 04/04/25 17:01 Dose 1 tab .ROUTE .STK-MED ONE Oxycodone/Acetaminophen Confirm 04/04/25 17:01 Oxycodone / Apap 10/325 Mg 1 Tablet Administered 04/04/25 17:02 Dose 1 tab .ROUTE .STK-MED ONE Oxycodone/Acetaminophen Confirm 04/04/25 22:07 Oxycodone Hcl/Apap 5 Mg/325 Mg Tablet Administered 04/04/25 22:08 Dose 1 tab .ROUTE .STK-MED ONE Oxycodone/Acetaminophen Confirm 04/05/25 02:55 Oxycodone Hcl/Apap 5 Mg/325 Mg Tablet Administered 04/05/25 02:56 Dose 1 tab .ROUTE .STK-MED ONE Piperacillin Sod/Tazobactam Sod Confirm 04/04/25 13:54 Piperacillin/Tazobactam Sodium 4.5 Gm Vial Administered 04/04/25 13:55 Dose 4.5 gm IV .STK-MED ONE Pregabalin Confirm 04/04/25 22:07 Pregabalin 150 Mg Capsule Administered 04/04/25 22:08 Dose 300 mg .ROUTE .STK-MED ONE Assessment/Plan (1) Periorbital cellulitis of right eye Current Visit: Yes Status: Acute Assessment & Plan: -Likely odontogenic or secondary to maxillary sinusitis, based on CT findings of soft tissue involvement extending to the right alveolar process, maxilla, and sinuses -Continue vanc/unasyn for broad-spectrum coverage of perioral and skin marck -Monitor for clinical worsening including increased swelling, pain, visual changes, or restricted extraocular movements -Schedule repeat CT face on Saturday to assess for interval improvement -Consider ID ENT or OMFS consultation (transfer) if no improvement by repeat imaging or clinical worsening -Immediate stat CT or MRI orbit if any concerning changes arise Code(s): L03.213 - PERIORBITAL CELLULITIS (2) Leukocytosis Current Visit: Yes Status: Acute Assessment & Plan: -2/2 to right preseptal cellulitis -WBC reviewed at 12.8 -trend -No fever -Continue vanc/unasyn Code(s): D72.829 - ELEVATED WHITE BLOOD CELL COUNT, UNSPECIFIED (3) Smoker Current Visit: Yes Status: Acute Assessment & Plan: -Patient prefers to use personal nicotine pouches for cravings -Provided smoking cessation counseling and encouraged ongoing efforts to reduce tobacco use Code(s): F17.200 - NICOTINE DEPENDENCE, UNSPECIFIED, UNCOMPLICATED (4) Chronic pain syndrome Current Visit: Yes Status: Acute Assessment & Plan: -Resume home medications:Oxycodone 7.5 mg PRN,Pregabalin, and Doxepin Code Status: DNR/DNI Diet: Regular VTE Prophylaxis: Low risk; encourage ambulation Disposition: Admit to inpatient service Code(s): G89.4 - CHRONIC PAIN SYNDROME
[2025-04-05 06:08] LABS: ANION GAP 14.4 MEQ/L (5-15); Calcium 8.7 mg/dL (8.4-10.2); Creatinine 1 0.81 mg/dL (0.66-1.25); EST GLOMERULAR FILTRATION RATE 120.1 ML/MIN; Potassium 3.8 mmol/L (3.5-5.1)
[2025-04-05] MEDS ORDERED: MEDICATION INTERVENTION MC SCH (07:00)
[2025-04-05] MEDS: LYRICA 150MG PO SCH (08:53)
[2025-04-05] MEDS: PERCOCET TABLET 5/325MG PO PRN (08:58)
[2025-04-05 11:27] LABS: Iron 40 ug/dL (49-181); Iron Saturation 19 % (20-39); TIBC 214 ug/dL (261-497)
[2025-04-05] MEDS: TORAdol 30 mg Injection IV PRN (12:26)
[2025-04-05] MEDS: PHARMACY DOSING REQUEST MC ONE (14:16)
[2025-04-05] MEDS: VANCOMYCIN 1.5 GRAM/300 ML BAG 1.5 GM/300 ML PIGGYBACK IV SCH (14:23)
[2025-04-05] MEDS: Unasyn 3 GM Vial*** 3 G in Sodium Chloride 0.9% 100 ML IV SCH (18:39)
--- NOTE | 2025-04-06 05:07 | PCM.NOTE ---
Date and Time: 04/06/25 0507 Subjective Assessment: Mr. Garrison is a 34-year-old male with a history of chronic pain syndrome and tobacco dependence who presented 04/04/25 with acute onset of right periorbital swelling and tenderness. The symptoms began with right upper dental pain approximately 3 to 4 days prior, followed by progressive swelling around the right eye that acutely worsened upon awakening this morning, leading to difficulty opening the eye. He denied any drainage, changes in visual acuity or chahla, or pain with extraocular movements. He also denied fevers, hearing changes, or systemic symptoms. The patient had attempted self-treatment with ice packs and leftover Keflex without relief. CT of the face demonstrated extensive soft tissue edema and inflammation involving the right nasolabial fold, extending superiorly to the nasal bone and associated with a localized preseptal fluid collection measuring 3.8 x 1.3 cm, with extension into the alveolar process of the right maxilla and lower jaw, gingiva, right buccinator muscle, and right oral mucosal space. Associated findings included multiple enlarged right cervical lymph nodes and significant bilateral maxillary sinus mucosal thickening, worse on the right. These findings are consistent with preseptal cellulitis and abscess, likely originating from a dental source or possibly secondary to sinusitis given the degree of mucosal involvement and anatomical spread. Given the absence of orbital involvement at this timespecifically no impairment of extraocular movements, no visual deficits, and no systemic signs of sepsisthe case was discussed with the on-call feed in worker at [facility] in [place], who advised no immediate surgical intervention but recommended close monitoring with a repeat CT in 1-2 days to assess for progression. The feed in worker also provided a direct phone number for any additional consultation needs. The patient was admitted to the hospital and initiated on intravenous vancomycin and Unasyn for broad-spectrum coverage including oral marck and skin pathogens. He will be closely monitored for any progression of swelling, changes in extraocular movements, or vision changes, with a low threshold for urgent imaging if clinically indicated. Repeat CT is planned for Saturday to assess interval changes. If clinical and radiographic improvement is noted, the patient may be transitioned to oral antibiotics to complete the treatment course. 04/05/25: Met with patient bedside. Endorses improvement in right eye swelling and jaw cb n. Patient states he has a cracked tooth which he has not seen the dentist for. Denies pain with EOM, diplopia, proptosis, or vision changes. 04/06/25: Patient is being managed for right-sided preseptal cellulitis with associated soft tissue abscess formation, currently being treated with IV Unasyn and vancomycin. This presentation is consistent with a bacterial soft tissue infection extending into the periorbital region without evidence of orbital involvement to date. No adverse events noted overnight. Clinically, the patient is showing improvement with reduction in periorbital and facial edema, and pain remains well controlled with patient rating 5/10 on numerical pain scale. A follow-up CT of the face and sinuses is scheduled for 04/07/25 to monitor response to therapy and assess for any evolving complications. Labs and vital signs are stable. - Review of Systems Constitutional: No Symptoms Eyes: Other (periorbital edema and erythema extending to the right jaw) Ears, Nose, & Throat: No Symptoms Respiratory: No Symptoms Cardiac: No Symptoms Abdominal/Gastrointestinal: No Symptoms Genitourinary Symptoms: No Symptoms Musculoskeletal: No Symptoms Skin: Cellulitis (right eye/face) Neurological: No Symptoms Psychological: No Symptoms Endocrine: No Symptoms Hematologic/Lymphatic: No Symptoms Immunological/Allergic: No Symptoms Objective Exam General Appearance: no apparent distress Neurologic Exam: alert, oriented x 3, cooperative Skin Exam: other (periorbital edema and erythema extending to the right jaw) Eye Exam: PERRL, EOMI, eyes nml inspection, other (periorbital edema and erythema extending to the right jaw) Ears, Nose, Throat Exam: normal ENT inspection Neck Exam: normal inspection Respiratory Exam: normal breath sounds, lungs clear Cardiovascular Exam: regular rate/rhythm, normal heart sounds Gastrointestinal/Abdomen Exam: soft, normal bowel sounds Extremity Exam: normal inspection Back Exam: normal inspection Male Genitalia Exam: deferred Rectal Exam: deferred Objective Data Vital Signs: Vital Signs - 24 hr Temp Pulse Resp BP Pulse Ox 04/06/25 04:00 98.3 F 85 22 127/83 94 L 04/05/25 23:13 97.8 F 101 H 20 146/98 95 04/05/25 19:39 97.1 F 97 H 16 127/60 94 L 04/05/25 16:00 97.7 F 99 H 16 139/81 97 04/05/25 11:57 97.8 F 105 H 16 159/98 95 04/05/25 07:13 98.4 F 87 16 145/89 94 L Pain Assessment - Last Documented Pain Intensity 3 Pain Scale Used 0-10 Pain Scale Intake and Output: Intake & Output 04/03/25 04/04/25 04/05/25 04/06/25 11:59 11:59 11:59 11:59 Intake Total 720 2772 Balance 720 2772 Weight 110.2 kg Lab Results: Lab Results-Last 24 Hours 04/05/25 04/05/25 04/05/25 Range/Units 04:50 04:50 04:50 WBC 12.8 H (4.23-9.07) x10^3/uL RBC 5.08 (4.63-6.08) x10^6/uL Hgb 15.0 (13.7-17.5) g/dL Hct 44.5 (40.1-51.0) % MCV 87.6 (79.0-92.2) fL MCH 29.5 (25.7-32.2) pg MCHC 33.7 (32.3-36.5) g/dL RDW 13.2 (11.6-14.4) % Plt Count 310 (163-337) x10^3/uL MPV 10.4 (9.4-12.4) fL Gran % 60.9 (34.0-67.9) % Immature Gran % (Auto) 0.2 (0.001-0.429) % Nucleat RBC Rel Count 0.0 (0.00-0.2) % Eos # (Auto) 0.64 H (0.04-0.54) x10^3/uL Immature Gran # (Auto) 0.03 (0.001-0.031) x10^3u/L Absolute Lymphs (auto) 3.18 (1.32-3.57) x10^3/uL Absolute Monos (auto) 1.08 H (0.30-0.82) x10^3/uL Absolute Nucleated RBC 0.00 (0.00-0.012) x10^3u/L Lymphocytes % 24.9 (21.8-53.1) % Monocytes % 8.5 (5.3-12.2) % Eosinophils % 5.0 (0.8-7.0) % Basophils % 0.5 (0.2-1.2) % Absolute Granulocytes 7.78 H (1.78-5.38) x10^3/uL Basophils # 0.07 (0.01-0.08) x10^3/uL Sodium 137 (135-145) mmol/L Potassium 3.8 (3.5-5.1) mmol/L Chloride 102 (98-107) mmol/L Carbon Dioxide 24 (22-30) mmol/L Anion Gap 14.4 (5-15) MEQ/L BUN 10 (9-20) mg/dL Creatinine 0.81 (0.66-1.25) mg/dL Estimated GFR 120.1 ML/MIN Glucose 114 H (74-106) mg/dL Calcium 8.7 (8.4-10.2) mg/dL Iron 40 L (49-181) ug/dL TIBC 214 L (261-497) ug/dL Iron Saturation 19 L (20-39) % Radiology Exams: Radiology Procedures Category Date Time Status FACIAL BONES WITH CONTRAST [CT] Stat Exams 04/04/25 14:54 Completed Medications: Medications Generic Name Dose Route Start Last Admin Trade Name Freq PRN Reason Stop Dose Admin Acetaminophen 650 mg 04/04/25 20:25 Acetaminophen 325 Mg Tablet PO 05/04/25 20:24 Q6H PRN PRN PAIN AND/OR FEVER Device 1 04/07/25 09:30 Therapuetic Drug Level Monitor Each IJ 04/07/25 09:31 1XONLY ONE Ampicillin Sodium/Sulbactam 100 mls @ 200 mls/hr 04/05/25 18:00 04/06/25 00:02 Sodium 3 g/ Sodium Chloride IV 04/08/25 17:59 200 mls/hr Q6HT MARGARITA Administration Vancomycin HCl 1.5 gm in 300 mls @ 200 mls/hr 04/05/25 14:00 04/06/25 00:02 Vancomycin 1.5 Gram/300 Ml Bag IV 05/05/25 13:59 200 mls/hr Q12HT MARGARITA Administration Ketorolac Tromethamine 30 mg 04/05/25 11:47 04/05/25 22:46 Ketorolac Tromethamine 30 Mg/Ml Inj IV 30 mg Q8H PRN PRN Administration PAIN Miscellaneous Information 1 each 04/05/25 07:00 Medication Intervention 1 Each Each 05/05/25 06:59 .RN TO CHECK MARGARITA Oxycodone/Acetaminophen 1.5 tab 04/05/25 06:56 04/06/25 03:34 Oxycodone Hcl/Apap 5 Mg/325 Mg Tablet PO 04/10/25 06:55 1.5 tab Q4H PRN PRN Administration PAIN Pregabalin 300 mg 04/04/25 22:00 04/05/25 22:45 Pregabalin 150 Mg Capsule PO 05/04/25 21:59 300 mg BID MARGARITA Administration Discontinued Medications Generic Name Dose Route Start Last Admin Trade Name Freq PRN Reason Stop Dose Admin Ampicillin Sodium/Sulbactam Sodium Confirm 04/04/25 16:52 Ampicillin /Sulbactam 3 G/Vial Administered 04/04/25 16:53 Dose 3 g .ROUTE .STK-MED ONE Piperacillin Sod/Tazobactam 100 mls @ 200 mls/hr 04/04/25 13:01 04/04/25 15:01 Sod 4.5 gm/ Sodium Chloride IV 04/04/25 13:30 Infused STAT STA Infusion Sodium Chloride Confirm 04/04/25 13:55 Sodium Chloride 0.9% Administered 04/04/25 13:56 Dose 100 mls @ ud .ROUTE .STK-MED ONE Ampicillin Sodium/Sulbactam 100 mls @ 300 mls/hr 04/04/25 16:50 04/04/25 17:51 Sodium 3 g/ Sodium Chloride IV 04/04/25 17:09 Infused STAT ONE Infusion Sodium Chloride Confirm 04/04/25 16:53 Sodium Chloride 100ml Mini-Bag Plus Administered 04/04/25 16:54 Dose 100 mls @ ud IV .STK-MED ONE Vancomycin HCl 2 gm in 400 mls @ 133.333 mls/hr 04/04/25 17:51 04/04/25 17:55 Vancomycin 2 Gram/400 Ml Bag IV 04/04/25 20:50 133 ml/hr STAT ONE 133 mls/hr Administration Vancomycin HCl Confirm 04/04/25 17:54 Vancomycin 2 Gram/400 Ml Bag Administered 04/04/25 17:55 Dose 2 gm in 400 mls @ ud IV .STK-MED ONE Non-Formulary Medication 30 mg 04/04/25 22:00 04/04/25 22:12 Doxepin Hcl [Doxepin Hcl] PO 05/04/25 21:59 Not Given HS MARGARITA Non-Formulary Medication 300 mg 04/04/25 22:00 04/04/25 22:09 Pregabalin [Lyrica] PO 05/04/25 21:59 300 mg BID MARGARITA Administration Non-Formulary Medication 1 each 04/04/25 20:25 04/05/25 02:56 Oxycodone Hcl/Acetaminophen [Oxycodone-Acetaminophn 7.5-325] PO 1 each Q4-6HPRN PRN Administration PAIN Non-Formulary Medication 1 each 04/05/25 13:19 04/05/25 14:16 Pharmacy Dosing Request [facility] 04/05/25 13:20 Not Given STAT ONE Oxycodone/Acetaminophen 1 tab 04/04/25 17:00 04/04/25 17:02 Oxycodone / Apap 10/325 Mg 1 Tablet PO 04/04/25 17:01 1 tab STAT STA Administration Oxycodone/Acetaminophen Confirm 04/04/25 17:00 Oxycodone Hcl/Apap 5 Mg/325 Mg Tablet Administered 04/04/25 17:01 Dose 1 tab .ROUTE .STK-MED ONE Oxycodone/Acetaminophen Confirm 04/04/25 17:01 Oxycodone / Apap 10/325 Mg 1 Tablet Administered 04/04/25 17:02 Dose 1 tab .ROUTE .STK-MED ONE Oxycodone/Acetaminophen Confirm 04/04/25 22:07 Oxycodone Hcl/Apap 5 Mg/325 Mg Tablet Administered 04/04/25 22:08 Dose 1 tab .ROUTE .STK-MED ONE Oxycodone/Acetaminophen Confirm 04/05/25 02:55 Oxycodone Hcl/Apap 5 Mg/325 Mg Tablet Administered 04/05/25 02:56 Dose 1 tab .ROUTE .STK-MED ONE Piperacillin Sod/Tazobactam Sod Confirm 04/04/25 13:54 Piperacillin/Tazobactam Sodium 4.5 Gm Vial Administered 04/04/25 13:55 Dose 4.5 gm IV .STK-MED ONE Pregabalin Confirm 04/04/25 22:07 Pregabalin 150 Mg Capsule Administered 04/04/25 22:08 Dose 300 mg .ROUTE .STK-MED ONE Multi-Disciplinary Progress Notes: Multi-Disciplinary Progress Notes 04/05/25 13:34 Pharmacy Note by Ezequiel Livingston Pharmacokinetic dosing service Date: 04/05/2025 Time: 1330 Objective: Patient: JOLANTA GARRISON Floor: [address] Age: 34 yo Serum creatinine: 0.81 mg/dL Height: 68 Inches Weight (kg): 110 Diagnosis: RIGHT EYE SWELLING AND TENDERNESS Relevant medical/social history: Cultures and sensitivities: PENDING Other labs: Assessment: IBW (kg): 63.90 Dosing wt(kg): 110 Estimated Creatinine clearance (ml/min): 100.6 CRCL method: Cockcroft and Gault using ibw(default). Drug selected: Vancomycin Loading dose (mg): 0 Vd (liters): 88.0 (factor used: 0.8 L/kg) Evan (hr-1): 0.088 Half life (hrs): 7.88 Recommended dose: 1500 mg Interval: 12 hrs Infusion time (hrs): 1.5 Predicted peak (mcg/mL): 24.5 Predicted trough (mcg/mL): 9.72 Total body weight is being used for vancomycin dosing. Renal function is stable [ XXX] /unstable [ ] Recommendations: Give Vancomycin 1500 mg q 12 hrs with an expected Cpeak of 24.5 mcg/ml and an expected Ctrough of 9.72 mcg/ml Renal dosing of other antibiotics (review renal dosing of other medications and list guidelines here): Thank you for the consult, will continue to follow. Signature: EZEQUIEL LIVINGSTON Initialized on 04/05/25 13:34 - END OF NOTE Assessment/Plan (1) Periorbital cellulitis of right eye Current Visit: No Status: Acute Assessment & Plan: -Likely odontogenic or secondary to maxillary sinusitis, based on CT findings of soft tissue involvement extending to the right alveolar process, maxilla, and sinuses -Continue vanc/unasyn for broad-spectrum coverage of perioral and skin marck -Monitor for clinical worsening including increased swelling, pain, visual changes, or restricted extraocular movements -Schedule repeat CT face on Saturday to assess for interval improvement -Consider ID ENT or OMFS consultation (transfer) if no improvement by repeat imaging or clinical worsening -Immediate stat CT or MRI orbit if any concerning changes arise 04/06: -Continue vanc/unasyn -Plan for CT face/sinus 04/07/25 -CBC reviewed and unremarkable Code(s): L03.213 - PERIORBITAL CELLULITIS (2) Leukocytosis Current Visit: Yes Status: Acute Assessment & Plan: -2/2 to right preseptal cellulitis -WBC reviewed at 12.8 -trend -No fever -Continue vanc/unasyn 04/06: -WBC reviewed and WNL at 8.0 -No fever -continue vanc/unasyn Code(s): D72.829 - ELEVATED WHITE BLOOD CELL COUNT, UNSPECIFIED (3) Smoker Current Visit: Yes Status: Acute Assessment & Plan: -Patient prefers to use personal nicotine pouches for cravings -Provided smoking cessation counseling and encouraged ongoing efforts to reduce tobacco use Code(s): F17.200 - NICOTINE DEPENDENCE, UNSPECIFIED, UNCOMPLICATED (4) Chronic pain syndrome Current Visit: Yes Status: Acute Assessment & Plan: -Resume home medications:Oxycodone 7.5 mg PRN,Pregabalin, and Doxepin Hypokalemia -potassium reviewed at 3.2 -will replenish per potassium protocol Code Status: DNR/DNI Diet: Regular VTE Prophylaxis: Low risk; encourage ambulation Disposition: Admit to inpatient service Code(s): L03.213 - PERIORBITAL CELLULITIS (2) Leukocytosis Current Visit: No Status: Acute Code(s): D72.829 - ELEVATED WHITE BLOOD CELL COUNT, UNSPECIFIED (3) Smoker Current Visit: No Status: Acute Code(s): F17.200 - NICOTINE DEPENDENCE, UNSPECIFIED, UNCOMPLICATED (4) Chronic pain syndrome Current Visit: No Status: Acute Code(s): G89.4 - CHRONIC PAIN SYNDROME (5) Hypokalemia Current Visit: Yes Status: Acute Code(s): E87.6 - HYPOKALEMIA
[2025-04-06 05:25] LABS: BASOPHIL % 0.8 % (0.2-1.2); Basophil (Absolute #) 0.06 x10^3/uL (0.01-0.08); Eosinophil % 5.8 % (0.8-7.0); Eosinophil (Absolute #) 0.46 x10^3/uL (0.04-0.54); Hematocrit 42.5 % (40.1-51.0); Hemoglobin 14.1 g/dL (13.7-17.5); IMMATURE GRAN # 0.03 x10^3u/L (0.001-0.031); IMMATURE GRAN % 0.4 % (0.001-0.429); Lymphocyte (Absolute #) 2.91 x10^3/uL (1.32-3.57); Lymphocytes % 36.4 % (21.8-53.1); Mean Cell Volume 86.9 fL (79.0-92.2); Mean Corpuscular Hemoglobin 28.8 pg (25.7-32.2); Mean Corpuscular Hgb Concent. 33.2 g/dL (32.3-36.5); Mean Platelet Volume 10.3 fL (9.4-12.4); Monocyte (Absolute #) 0.74 x10^3/uL (0.30-0.82); Monocytes % 9.3 % (5.3-12.2); Neutrophil % 47.3 % (34.0-67.9); Platelet Count 261 x10^3/uL (163-337); Red Blood Count 4.89 x10^6/uL (4.63-6.08); Red Cell Distribution Width 13.1 % (11.6-14.4)
[2025-04-06 05:46] LABS: ALBUMIN 3.4 g/dL (3.5-5.0); ANION GAP 10.8 MEQ/L (5-15); BILIRUBIN,TOTAL 0.3 mg/dL (0.2-1.3); Calcium 8.7 mg/dL (8.4-10.2); Creatinine 1 0.82 mg/dL (0.66-1.25); EST GLOMERULAR FILTRATION RATE 119.7 ML/MIN; Potassium 3.2 mmol/L (3.5-5.1); Total Protein 5.8 g/dL (6.3-8.2)
[2025-04-06] MEDS: Klor Con PO SCH (06:10)
[2025-04-06] MEDS: PATIENT OWN MEDICATION PO SCH (20:22)
[2025-04-07 04:56] LABS: Absolute Neutrophil Ct (ANC) 2.91 x10^3/uL (1.78-5.38); BASOPHIL % 0.8 % (0.2-1.2); Basophil (Absolute #) 0.06 x10^3/uL (0.01-0.08); Eosinophil % 5.9 % (0.8-7.0); Eosinophil (Absolute #) 0.43 x10^3/uL (0.04-0.54); Hematocrit 46.3 % (40.1-51.0); Hemoglobin 15.3 g/dL (13.7-17.5); IMMATURE GRAN # 0.01 x10^3u/L (0.001-0.031); IMMATURE GRAN % 0.1 % (0.001-0.429); Lymphocyte (Absolute #) 3.19 x10^3/uL (1.32-3.57); Lymphocytes % 44.1 % (21.8-53.1); Mean Cell Volume 88.7 fL (79.0-92.2); Mean Corpuscular Hemoglobin 29.3 pg (25.7-32.2); Mean Platelet Volume 9.8 fL (9.4-12.4); Monocyte (Absolute #) 0.63 x10^3/uL (0.30-0.82); Monocytes % 8.7 % (5.3-12.2); Neutrophil % 40.4 % (34.0-67.9); Platelet Count 285 x10^3/uL (163-337); Red Blood Count 5.22 x10^6/uL (4.63-6.08); Red Cell Distribution Width 13.4 % (11.6-14.4); White Blood Count 7.2 x10^3/uL (4.23-9.07)
[2025-04-07 05:13] LABS: ALBUMIN 3.5 g/dL (3.5-5.0); ANION GAP 12.9 MEQ/L (5-15); BILIRUBIN,TOTAL 0.3 mg/dL (0.2-1.3); Calcium 8.7 mg/dL (8.4-10.2); Creatinine 1 0.71 mg/dL (0.66-1.25); Potassium 3.9 mmol/L (3.5-5.1)
--- NOTE | 2025-04-07 05:13 | PCM.NOTE ---
Date and Time: 04/07/25 0513 Subjective Assessment: Mr. Manriquez is a 34-year-old male with a history of chronic pain syndrome and tobacco dependence who presented 04/04/25 with acute onset of right periorbital swelling and tenderness. The symptoms began with right upper dental pain approximately 3 to 4 days prior, followed by progressive swelling around the right eye that acutely worsened upon awakening this morning, leading to difficulty opening the eye. He denied any drainage, changes in visual acuity or chahal, or pain with extraocular movements. He also denied fevers, hearing changes, or systemic symptoms. The patient had attempted self-treatment with ice packs and leftover Keflex without relief. CT of the face demonstrated extensive soft tissue edema and inflammation involving the right nasolabial fold, extending superiorly to the nasal bone and associated with a localized preseptal fluid collection measuring 3.8 x 1.3 cm, with extension into the alveolar process of the right maxilla and lower jaw, gingiva, right buccinator muscle, and right oral mucosal space. Associated findings included multiple enlarged right cervical lymph nodes and significant bilateral maxillary sinus mucosal thickening, worse on the right. These findings are consistent with preseptal cellulitis and abscess, likely originating from a dental source or possibly secondary to sinusitis given the degree of mucosal involvement and anatomical spread. Given the absence of orbital involvement at this timespecifically no impairment of extraocular movements, no visual deficits, and no systemic signs of sepsisthe case was discussed with the on-call senior it specialist at [facility] in [place], who advised no immediate surgical intervention but recommended close monitoring with a repeat CT in 1-2 days to assess for progression. The senior it specialist also provided a direct phone number for any additional consultation needs. The patient was admitted to the hospital and initiated on intravenous vancomycin and Unasyn for broad-spectrum coverage including oral marck and skin pathogens. He will be closely monitored for any progression of swelling, changes in extraocular movements, or vision changes, with a low threshold for urgent imaging if clinically indicated. Repeat CT is planned for Saturday to assess interval changes. If clinical and radiographic improvement is noted, the patient may be transitioned to oral antibiotics to complete the treatment course. 04/05/25: Met with patient bedside. Endorses improvement in right eye swelling and jaw pa in. Patient states he has a cracked tooth which he has not seen the dentist for. Denies pain with EOM, diplopia, proptosis, or vision changes. 04/06/25: Patient is being managed for right-sided preseptal cellulitis with associated soft tissue abscess formation, currently being treated with IV Unasyn and vancomycin. This presentation is consistent with a bacterial soft tissue infection extending into the periorbital region without evidence of orbital involvement to date. No adverse events noted overnight. Clinically, the patient is showing improvement with reduction in periorbital and facial edema, and pain remains well controlled with patient rating 5/10 on numerical pain scale. A follow-up CT of the face and sinuses is scheduled for 04/07/25 to monitor response to therapy and assess for any evolving complications. Labs and vital signs are stable. Objective Data Vital Signs: Vital Signs - 24 hr Temp Pulse Resp BP Pulse Ox 04/07/25 04:00 97.9 F 81 18 145/74 96 04/06/25 23:50 96.6 F 94 H 18 136/92 97 04/06/25 20:00 97.5 F 96 H 18 127/90 96 04/06/25 16:00 98.0 F 89 16 134/86 97 04/06/25 11:49 97.7 F 90 16 161/84 98 04/06/25 07:45 98.3 F 109 H 16 120/70 95 Pain Assessment - Last Documented Pain Intensity 3 Pain Scale Used [facility] Intake and Output: Intake & Output 04/04/25 04/05/25 04/06/25 04/07/25 11:59 11:59 11:59 11:59 Intake Total 720 3452 1680 Balance 720 3452 1680 Weight 110.2 kg Lab Results: Lab Results-Last 24 Hours 04/06/25 04/06/25 04/06/25 Range/Units 05:18 05:18 12:04 WBC 8.0 (4.23-9.07) x10^3/uL RBC 4.89 (4.63-6.08) x10^6/uL Hgb 14.1 (13.7-17.5) g/dL Hct 42.5 (40.1-51.0) % MCV 86.9 (79.0-92.2) fL MCH 28.8 (25.7-32.2) pg MCHC 33.2 (32.3-36.5) g/dL RDW 13.1 (11.6-14.4) % Plt Count 261 (163-337) x10^3/uL MPV 10.3 (9.4-12.4) fL Gran % 47.3 (34.0-67.9) % Immature Gran % (Auto) 0.4 (0.001-0.429) % Nucleat RBC Rel Count 0.0 (0.00-0.2) % Eos # (Auto) 0.46 (0.04-0.54) x10^3/uL Immature Gran # (Auto) 0.03 (0.001-0.031) x10^3u/L Absolute Lymphs (auto) 2.91 (1.32-3.57) x10^3/uL Absolute Monos (auto) 0.74 (0.30-0.82) x10^3/uL Absolute Nucleated RBC 0.00 (0.00-0.012) x10^3u/L Lymphocytes % 36.4 (21.8-53.1) % Monocytes % 9.3 (5.3-12.2) % Eosinophils % 5.8 (0.8-7.0) % Basophils % 0.8 (0.2-1.2) % Absolute Granulocytes 3.80 (1.78-5.38) x10^3/uL Basophils # 0.06 (0.01-0.08) x10^3/uL Sodium 138 (135-145) mmol/L Potassium 3.2 L 4.2 D (3.5-5.1) mmol/L Chloride 103 (98-107) mmol/L Carbon Dioxide 28 (22-30) mmol/L Anion Gap 10.8 (5-15) MEQ/L BUN 9 (9-20) mg/dL Creatinine 0.82 (0.66-1.25) mg/dL Estimated GFR 119.7 ML/MIN Glucose 153 H (74-106) mg/dL Calcium 8.7 (8.4-10.2) mg/dL Total Bilirubin 0.30 (0.2-1.3) mg/dL AST 29 (17-59) U/L ALT 35 (0-50) U/L Alkaline Phosphatase 79 (38-126) U/L Serum Total Protein 5.8 L (6.3-8.2) g/dL Albumin 3.4 L (3.5-5.0) g/dL 04/06/25 04/07/25 Range/Units 15:56 04:51 WBC 7.2 (4.23-9.07) x10^3/uL RBC 5.22 (4.63-6.08) x10^6/uL Hgb 15.3 (13.7-17.5) g/dL Hct 46.3 (40.1-51.0) % MCV 88.7 (79.0-92.2) fL MCH 29.3 (25.7-32.2) pg MCHC 33.0 (32.3-36.5) g/dL RDW 13.4 (11.6-14.4) % Plt Count 285 (163-337) x10^3/uL MPV 9.8 (9.4-12.4) fL Gran % 40.4 (34.0-67.9) % Immature Gran % (Auto) 0.1 (0.001-0.429) % Nucleat RBC Rel Count 0.0 (0.00-0.2) % Eos # (Auto) 0.43 (0.04-0.54) x10^3/uL Immature Gran # (Auto) 0.01 (0.001-0.031) x10^3u/L Absolute Lymphs (auto) 3.19 (1.32-3.57) x10^3/uL Absolute Monos (auto) 0.63 (0.30-0.82) x10^3/uL Absolute Nucleated RBC 0.00 (0.00-0.012) x10^3u/L Lymphocytes % 44.1 (21.8-53.1) % Monocytes % 8.7 (5.3-12.2) % Eosinophils % 5.9 (0.8-7.0) % Basophils % 0.8 (0.2-1.2) % Absolute Granulocytes 2.91 (1.78-5.38) x10^3/uL Basophils # 0.06 (0.01-0.08) x10^3/uL Sodium (135-145) mmol/L Potassium 4.0 (3.5-5.1) mmol/L Chloride (98-107) mmol/L Carbon Dioxide (22-30) mmol/L Anion Gap (5-15) MEQ/L BUN (9-20) mg/dL Creatinine (0.66-1.25) mg/dL Estimated GFR ML/MIN Glucose (74-106) mg/dL Calcium (8.4-10.2) mg/dL Total Bilirubin (0.2-1.3) mg/dL AST (17-59) U/L ALT (0-50) U/L Alkaline Phosphatase (38-126) U/L Serum Total Protein (6.3-8.2) g/dL Albumin (3.5-5.0) g/dL Radiology Exams: Radiology Procedures Category Date Time Status FACIAL BONES WITH CONTRAST [CT] Urgent Exams 04/07/25 08:00 Ordered Medications: Medications Generic Name Dose Route Start Last Admin Trade Name Freq PRN Reason Stop Dose Admin Acetaminophen 650 mg 04/04/25 20:25 Acetaminophen 325 Mg Tablet PO 05/04/25 20:24 Q6H PRN PRN PAIN AND/OR FEVER Device 1 04/07/25 09:30 Therapuetic Drug Level Monitor Each IJ 04/07/25 09:31 1XONLY ONE Ampicillin Sodium/Sulbactam 100 mls @ 200 mls/hr 04/05/25 18:00 04/07/25 01:19 Sodium 3 g/ Sodium Chloride IV 04/08/25 17:59 200 mls/hr Q6HT MARGARITA Administration Vancomycin HCl 1.5 gm in 300 mls @ 200 mls/hr 04/05/25 14:00 04/06/25 20:31 Vancomycin 1.5 Gram/300 Ml Bag IV 05/05/25 13:59 200 mls/hr Q12HT MARGARITA Administration Ketorolac Tromethamine 30 mg 04/05/25 11:47 04/06/25 20:24 Ketorolac Tromethamine 30 Mg/Ml Inj IV 30 mg Q8H PRN PRN Administration PAIN Oxycodone/Acetaminophen 1.5 tab 04/05/25 06:56 04/06/25 20:23 Oxycodone Hcl/Apap 5 Mg/325 Mg Tablet PO 04/10/25 06:55 1.5 tab Q4H PRN PRN Administration PAIN Doxepin 10mg Capsule 3 each 04/06/25 22:00 04/06/25 20:22 PO 05/06/25 21:59 3 each HS MARGARITA Administration Pregabalin 300 mg 04/04/25 22:00 04/06/25 20:32 Pregabalin 150 Mg Capsule PO 05/04/25 21:59 300 mg BID MARGARITA Administration Discontinued Medications Generic Name Dose Route Start Last Admin Trade Name Wendi PRN Reason Stop Dose Admin Ampicillin Sodium/Sulbactam Sodium Confirm 04/04/25 16:52 Ampicillin /Sulbactam 3 G/Vial Administered 04/04/25 16:53 Dose 3 g .ROUTE .STK-MED ONE Piperacillin Sod/Tazobactam 100 mls @ 200 mls/hr 04/04/25 13:01 04/04/25 15:01 Sod 4.5 gm/ Sodium Chloride IV 04/04/25 13:30 Infused STAT STA Infusion Sodium Chloride Confirm 04/04/25 13:55 Sodium Chloride 0.9% Administered 04/04/25 13:56 Dose 100 mls @ ud .ROUTE .STK-MED ONE Ampicillin Sodium/Sulbactam 100 mls @ 300 mls/hr 04/04/25 16:50 04/04/25 17:51 Sodium 3 g/ Sodium Chloride IV 04/04/25 17:09 Infused STAT ONE Infusion Sodium Chloride Confirm 04/04/25 16:53 Sodium Chloride 100ml Mini-Bag Plus Administered 04/04/25 16:54 Dose 100 mls @ ud IV .STK-MED ONE Vancomycin HCl 2 gm in 400 mls @ 133.333 mls/hr 04/04/25 17:51 04/04/25 17:55 Vancomycin 2 Gram/400 Ml Bag IV 04/04/25 20:50 133 ml/hr STAT ONE 133 mls/hr Administration Vancomycin HCl Confirm 04/04/25 17:54 Vancomycin 2 Gram/400 Ml Bag Administered 04/04/25 17:55 Dose 2 gm in 400 mls @ ud IV .STK-MED ONE Miscellaneous Information 1 each 04/05/25 07:00 Medication Intervention 1 Each Each 05/05/25 06:59 .RN TO CHECK MARGARITA Non-Formulary Medication 30 mg 04/04/25 22:00 04/04/25 22:12 Doxepin Hcl [Doxepin Hcl] PO 05/04/25 21:59 Not Given HS MARGARITA Non-Formulary Medication 300 mg 04/04/25 22:00 04/04/25 22:09 Pregabalin [Lyrica] PO 05/04/25 21:59 300 mg BID MARGARITA Administration Non-Formulary Medication 1 each 04/04/25 20:25 04/05/25 02:56 Oxycodone Hcl/Acetaminophen [Oxycodone-Acetaminophn 7.5-325] PO 1 each Q4-6HPRN PRN Administration PAIN Non-Formulary Medication 1 each 04/05/25 13:19 04/05/25 14:16 Pharmacy Dosing Request [facility] 04/05/25 13:20 Not Given STAT ONE Oxycodone/Acetaminophen 1 tab 04/04/25 17:00 04/04/25 17:02 Oxycodone / Apap 10/325 Mg 1 Tablet PO 04/04/25 17:01 1 tab STAT STA Administration Oxycodone/Acetaminophen Confirm 04/04/25 17:00 Oxycodone Hcl/Apap 5 Mg/325 Mg Tablet Administered 04/04/25 17:01 Dose 1 tab .ROUTE .STK-MED ONE Oxycodone/Acetaminophen Confirm 04/04/25 17:01 Oxycodone / Apap 10/325 Mg 1 Tablet Administered 04/04/25 17:02 Dose 1 tab .ROUTE .STK-MED ONE Oxycodone/Acetaminophen Confirm 04/04/25 22:07 Oxycodone Hcl/Apap 5 Mg/325 Mg Tablet Administered 04/04/25 22:08 Dose 1 tab .ROUTE .STK-MED ONE Oxycodone/Acetaminophen Confirm 04/05/25 02:55 Oxycodone Hcl/Apap 5 Mg/325 Mg Tablet Administered 04/05/25 02:56 Dose 1 tab .ROUTE .STK-MED ONE Piperacillin Sod/Tazobactam Sod Confirm 04/04/25 13:54 Piperacillin/Tazobactam Sodium 4.5 Gm Vial Administered 04/04/25 13:55 Dose 4.5 gm IV .STK-MED ONE Potassium Chloride 20 meq 04/06/25 06:00 04/06/25 12:17 Potassium Chloride Tab 10 Meq Tab PO 04/06/25 12:01 20 meq Q2H MARGARITA Administration Pregabalin Confirm 04/04/25 22:07 Pregabalin 150 Mg Capsule Administered 04/04/25 22:08 Dose 300 mg .ROUTE .STK-MED ONE Multi-Disciplinary Progress Notes: Multi-Disciplinary Progress Notes 04/06/25 14:03 Case Management Note by Jacquie Portillo S/W PATIENT- HE CONTINUES TO DENY ANY NEW NEEDS AT TIME OF DC. HE PLANS TO DC HOME TO HIS PLF Initialized on 04/06/25 14:03 - END OF NOTE Assessment/Plan (1) Periorbital cellulitis of right eye Current Visit: No Status: Acute Assessment & Plan: -Likely odontogenic or secondary to maxillary sinusitis, based on CT findings of soft tissue involvement extending to the right alveolar process, maxilla, and sinuses -Continue vanc/unasyn for broad-spectrum coverage of perioral and skin marck -Monitor for clinical worsening including increased swelling, pain, visual changes, or restricted extraocular movements -Schedule repeat CT face on Saturday to assess for interval improvement -Consider ID ENT or OMFS consultation (transfer) if no improvement by repeat imaging or clinical worsening -Immediate stat CT or MRI orbit if any concerning changes arise 04/06: -Continue vanc/unasyn -Plan for CT face/sinus 04/07/25 -CBC reviewed and unremarkable Code(s): L03.213 - PERIORBITAL CELLULITIS (2) Leukocytosis Current Visit: Yes Status: Acute Assessment & Plan: -2/2 to right preseptal cellulitis -WBC reviewed at 12.8 -trend -No fever -Continue vanc/unasyn 04/06: -WBC reviewed and WNL at 8.0 -No fever -continue vanc/unasyn Code(s): D72.829 - ELEVATED WHITE BLOOD CELL COUNT, UNSPECIFIED (3) Smoker Current Visit: Yes Status: Acute Assessment & Plan: -Patient prefers to use personal nicotine pouches for cravings -Provided smoking cessation counseling and encouraged ongoing efforts to reduce tobacco use Code(s): F17.200 - NICOTINE DEPENDENCE, UNSPECIFIED, UNCOMPLICATED (4) Chronic pain syndrome Current Visit: Yes Status: Acute Assessment & Plan: -Resume home medications:Oxycodone 7.5 mg PRN,Pregabalin, and Doxepin Hypokalemia -potassium reviewed at 3.2 -will replenish per potassium protocol Code Status: DNR/DNI Diet: Regular VTE Prophylaxis: Low risk; encourage ambulation Disposition: Admit to inpatient service Code(s): L03.213 - PERIORBITAL CELLULITIS Code(s): L03.213 - PERIORBITAL CELLULITIS (2) Leukocytosis Current Visit: No Status: Acute Code(s): D72.829 - ELEVATED WHITE BLOOD CELL COUNT, UNSPECIFIED (3) Smoker Current Visit: No Status: Acute Code(s): F17.200 - NICOTINE DEPENDENCE, UNSPECIFIED, UNCOMPLICATED (4) Chronic pain syndrome Current Visit: No Status: Acute Code(s): G89.4 - CHRONIC PAIN SYNDROME (5) Hypokalemia Current Visit: Yes Status: Acute Code(s): E87.6 - HYPOKALEMIA
--- NOTE | 2025-04-07 10:03 | XRAY ---
CLINICAL HISTORY: periorbial cellulitis COMPARISON: Prior facial CT dated 04/04/2025. TECHNIQUE: Contrast-enhanced CT scan of the paranasal sinuses was performed, with sagittal and coronal multiplanar reconstruction. 80cc of isovue 370 was administered for post-contrast images. One of the following dose reduction techniques were utilized for this exam: Automated exposure control, adjustment of the mA and/or kV according to patient size, use of iterative reconstruction. FINDINGS: Soft Tissues: Marked regression of the prior right preseptal fluid collection with regression of the associated diffuse soft tissue thickening/edema involving the right nasolabial fold, cheek and gingiva. Stable small reactionary/non-specific submandibular and upper deep cervical lymph nodes. Sinuses: Stable polypoidal mucosal thickening involving the right maxillary antrum and compromising the ipsilateral osteomeatal complex. Mild regression of the prior left maxillary and anterior ethmoidal mucosal thickening with still compromised left osteomeatal complex. Other paranasal sinuses are clear. No evidence of fluid levels. Osteomeatal complexes are obliterated. Nasal Cavity: Regression of the prior nasal mucosal congestion. Right clear middle henry bullosa (variant). No masses, polyps, or significant deviations. Orbits: Orbits are normal in size and shape. Extraocular muscles and optic nerves are normal. No evidence of orbital masses or proptosis. Maxilla and Mandible: Again noted dental caries at multiple right lower jaw teeth with no sizable periapical masses or abscess identified. Normal appearance of the maxillary and mandibular bones. No fractures, lytic or sclerotic lesions. Facial Bones: No fractures or deformities. Zygomatic arches, nasal bones, and other facial structures are intact. Salivary Glands: Parotid, submandibular, and sublingual glands are normal. No evidence of sialadenitis or masses. Vascular Structures: Normal enhancement of the facial vascular structures. No evidence of vascular malformations or aneurysms. Temporomandibular Joints (TMJ): Normal appearance of the TMJ bilaterally. No evidence of joint effusion, degenerative changes, or dislocation. IMPRESSION: 1. Marked regression of the prior right preseptal fluid collection with regression of the associated diffuse soft tissue thickening/edema involving the right nasolabial fold, cheek and gingiva. 2. Stable right chronic maxillary sinusitis. Regressed mild left maxillary and anterior ethmoidal sinusitis. 3. Stable bilateral osteomeatal compromise. 4. Bilateral mild reactive neck lymph nodes. Electronically Signed by: Patricia Raza MD. (04/07/2025 10:01:14 EDT)
[2025-04-07] MEDS: TROUGH DRUG LEVELS IJ ONE (10:41)
--- NOTE | 2025-04-07 11:31 | PCM.DS ---
Discharge Summary Date of Admission: 04/04/25 18:21 Date of Discharge: 04/07/25 Admitting Physician: AUGUSTINA SUN MD Primary Care Provider: MARYANNE BLAKE Allergies Allergies No Known Drug Allergies Allergy (Verified 04/04/25 12:56) Hospital Summary - Hospital Course Hospital Course: Mr. Manriquez is a 34-year-old male with a history of chronic pain syndrome and tobacco dependence who presented on 04/04/25 with acute right periorbital swelling and tenderness, preceded by right upper dental pain for 3 to 4 days. The patient reported progression of swelling around the right eye, which worsened significantly upon awakening, leading to difficulty opening the eye. He denied drainage, visual changes, diplopia, or pain with extraocular movements, and had no systemic symptoms such as fever or chills. Initial CT of the face revealed significant soft tissue edema and inflammation involving the right nasolabial fold, extending to the nasal bone, with a preseptal fluid collection measuring 3.8 x 1.3 cm. The infection extended into the right maxilla, gingiva, lower jaw, and adjacent soft tissues, without evidence of orbital involvement. Associated findings included enlarged right cervical lymph nodes and bilateral maxillary sinus mucosal thickening, worse on the right. These findings were consistent with preseptal cellulitis with abscess formation, likely of odontogenic origin, possibly compounded by underlying sinusitis. The patient was admitted for intravenous antibiotic therapy with vancomycin and Unasyn, close monitoring, and scheduled for repeat CT imaging in 48-72 hours. Ophthalmology was consulted and did not recommend surgical intervention at that time, given the absence of orbital signs or systemic instability. During hospitalization, the patient demonstrated steady clinical improvement, with decreasing facial and periorbital edema and pain well controlled on his home pain regimen. He reported no vision changes, diplopia, or pain with eye movement. Laboratory workup showed an initial leukocytosis (WBC 12.8), which normalized (WBC 7.2) without fever or systemic signs of sepsis. Potassium of 3.2 was identified during hospitalization and corrected per protocol, with resolution prior to discharge. A repeat CT facial bones and sinuses on 04/07/25 showed marked improvement of the preseptal fluid collection and surrounding soft tissue swelling, with stable chronic right maxillary sinusitis and no new findings. Given his positive clinical and radiographic response, the patient was deemed stable for discharge on oral Augmentin to complete the antibiotic course, with referrals to his primary care physician and dentist for definitive dental management and continued follow-up. He was provided with smoking cessation counseling, including the importance of discontinuing tobacco and nicotine use to promote healing. - Vitals & Intake/Output Vital Signs: Vital Signs Temperature 97.6 F 04/07/25 07:18 Pulse Rate 80 04/07/25 07:18 Respiratory Rate 20 04/07/25 07:18 Blood Pressure 138/80 04/07/25 07:18 O2 Sat by Pulse Oximetry 95 04/07/25 07:18 Intake & Output: Intake & Output 04/04/25 04/05/25 04/06/25 04/07/25 11:59 11:59 11:59 11:59 Intake Total 720 3452 1680 Balance 720 3452 1680 Weight 110.2 kg - Lab Result Diagrams: 04/07/25 04:51 04/07/25 04:51 Lab Results-Last 24 Hrs: Lab Results-Last 24 Hours 04/06/25 04/06/25 04/07/25 Range/Units 12:04 15:56 04:51 WBC 7.2 (4.23-9.07) x10^3/uL RBC 5.22 (4.63-6.08) x10^6/uL Hgb 15.3 (13.7-17.5) g/dL Hct 46.3 (40.1-51.0) % MCV 88.7 (79.0-92.2) fL MCH 29.3 (25.7-32.2) pg MCHC 33.0 (32.3-36.5) g/dL RDW 13.4 (11.6-14.4) % Plt Count 285 (163-337) x10^3/uL MPV 9.8 (9.4-12.4) fL Gran % 40.4 (34.0-67.9) % Immature Gran % (Auto) 0.1 (0.001-0.429) % Nucleat RBC Rel Count 0.0 (0.00-0.2) % Eos # (Auto) 0.43 (0.04-0.54) x10^3/uL Immature Gran # (Auto) 0.01 (0.001-0.031) x10^3u/L Absolute Lymphs (auto) 3.19 (1.32-3.57) x10^3/uL Absolute Monos (auto) 0.63 (0.30-0.82) x10^3/uL Absolute Nucleated RBC 0.00 (0.00-0.012) x10^3u/L Lymphocytes % 44.1 (21.8-53.1) % Monocytes % 8.7 (5.3-12.2) % Eosinophils % 5.9 (0.8-7.0) % Basophils % 0.8 (0.2-1.2) % Absolute Granulocytes 2.91 (1.78-5.38) x10^3/uL Basophils # 0.06 (0.01-0.08) x10^3/uL Sodium (135-145) mmol/L Potassium 4.2 D 4.0 (3.5-5.1) mmol/L Chloride (98-107) mmol/L Carbon Dioxide (22-30) mmol/L Anion Gap (5-15) MEQ/L BUN (9-20) mg/dL Creatinine (0.66-1.25) mg/dL Estimated GFR ML/MIN Glucose (74-106) mg/dL Calcium (8.4-10.2) mg/dL Total Bilirubin (0.2-1.3) mg/dL AST (17-59) U/L ALT (0-50) U/L Alkaline Phosphatase (38-126) U/L Serum Total Protein (6.3-8.2) g/dL Albumin (3.5-5.0) g/dL Vancomycin Trough (10-20) ug/mL 04/07/25 04/07/25 Range/Units 04:51 09:46 WBC (4.23-9.07) x10^3/uL RBC (4.63-6.08) x10^6/uL Hgb (13.7-17.5) g/dL Hct (40.1-51.0) % MCV (79.0-92.2) fL MCH (25.7-32.2) pg MCHC (32.3-36.5) g/dL RDW (11.6-14.4) % Plt Count (163-337) x10^3/uL MPV (9.4-12.4) fL Gran % (34.0-67.9) % Immature Gran % (Auto) (0.001-0.429) % Nucleat RBC Rel Count (0.00-0.2) % Eos # (Auto) (0.04-0.54) x10^3/uL Immature Gran # (Auto) (0.001-0.031) x10^3u/L Absolute Lymphs (auto) (1.32-3.57) x10^3/uL Absolute Monos (auto) (0.30-0.82) x10^3/uL Absolute Nucleated RBC (0.00-0.012) x10^3u/L Lymphocytes % (21.8-53.1) % Monocytes % (5.3-12.2) % Eosinophils % (0.8-7.0) % Basophils % (0.2-1.2) % Absolute Granulocytes (1.78-5.38) x10^3/uL Basophils # (0.01-0.08) x10^3/uL Sodium 139 (135-145) mmol/L Potassium 3.9 (3.5-5.1) mmol/L Chloride 107 (98-107) mmol/L Carbon Dioxide 23 (22-30) mmol/L Anion Gap 12.9 (5-15) MEQ/L BUN 8 L (9-20) mg/dL Creatinine 0.71 (0.66-1.25) mg/dL Estimated GFR 125.0 ML/MIN Glucose 130 H (74-106) mg/dL Calcium 8.7 (8.4-10.2) mg/dL Total Bilirubin 0.30 (0.2-1.3) mg/dL AST 27 (17-59) U/L ALT 36 (0-50) U/L Alkaline Phosphatase 80 (38-126) U/L Serum Total Protein 6.0 L (6.3-8.2) g/dL Albumin 3.5 (3.5-5.0) g/dL Vancomycin Trough 7.78 L (10-20) ug/mL - Radiology Exams Ordered Rad Exams-Entire Visit: Radiology Procedures Category Date Time Status FACIAL BONES WITH CONTRAST [CT] Stat Exams 04/07/25 08:00 Completed Discharge Exam General Appearance: no apparent distress Neurologic Exam: alert, oriented x 3, cooperative Eye Exam: PERRL, EOMI, other (periorital edema with mild surrounding erythema) Ears, Nose, Throat Exam: normal ENT inspection Neck Exam: normal inspection Respiratory Exam: normal breath sounds, lungs clear, prolonged expirations Cardiovascular Exam: regular rate/rhythm, normal heart sounds Gastrointestinal/Abdomen Exam: soft, normal bowel sounds Male Genitalia Exam: deferred Rectal Exam: deferred Back Exam: normal inspection Extremity Exam: normal inspection Skin Exam: normal color Final Diagnosis/Problem List - Final Discharge Diagnosis/Problem (1) Periorbital cellulitis of right eye Current Visit: No Status: Acute Assessment & Plan: -Amoxicillin-Clavulanate (Augmentin) 875 mg/125 mg PO every 12 hours x 10 days. -Monitor for signs of clinical worsening: increasing swelling, redness, pain, fever, vision changes, or difficulty with eye movements. -Follow up urgently with dentist for definitive management of suspected dental abscess. -Follow up with primary care provider (PCP) within 1 week to assess resolution and reinforce outpatient care. Code(s): L03.213 - PERIORBITAL CELLULITIS (2) Leukocytosis Current Visit: No Status: Acute Assessment & Plan: -resolved Code(s): D72.829 - ELEVATED WHITE BLOOD CELL COUNT, UNSPECIFIED (3) Smoker Current Visit: No Status: Acute Assessment & Plan: -Patient advised to discontinue all tobacco and nicotine products, including personal nicotine pouches, to promote healing and reduce infection risk. -Smoking cessation counseling provided. -Recommend PCP follow-up for additional smoking cessation support and resources. Code(s): F17.200 - NICOTINE DEPENDENCE, UNSPECIFIED, UNCOMPLICATED (4) Chronic pain syndrome Current Visit: No Status: Acute Assessment & Plan: Resume home medications Code(s): G89.4 - CHRONIC PAIN SYNDROME (5) Hypokalemia Current Visit: Yes Status: Acute Assessment & Plan: -resolved Code(s): E87.6 - HYPOKALEMIA - Discharge Discharge Date: 04/07/25 Disposition: Home, Self-Care Condition: Stable Prescriptions: New Amox Tr/Potass Clav. 875 mg [Augmentin 875-125 Tablet] 1 each PO BID 10 Days #20 tablet Continue Pregabalin [Lyrica] 300 mg PO BID Doxepin HCl 30 mg PO HS Oxycodone HCl/Acetaminophen [Oxycodone-Acetaminophn 7.5-325] 1 each PO Q4- 6HPRN PRN PRN Reason: Pain Additional Instructions: Will need follow up with Dentist- appt to be made prior to discharge Follow up with: MARYANNE BLAKE MD [Primary Care Provider, [facility]]
[2025-04-07 11:54] VITALS: BP 136/87; PULSE 91; RESP 19; TEMP 97.5; O2SAT 96
== END 2025-04-07 13:37 | disposition home or self-care (01) ==
LOC: ED 12:48 → MED SURG 18:21 → OBSVTOIN 18:21 → INTOOBSV 18:21 → UNDODISIN 04-07 13:37
PROVIDERS: ADMIT Internal Medicine; ATTEND Internal Medicine
DX: L03.213 Periorbital cellulitis (principal); D72.829 Elevated white blood cell count, unspecified; F17.200 Nicotine dependence, unspecified, uncomplicated; G89.4 Chronic pain syndrome; E87.6 Hypokalemia; K08.89 Other specified disorders of teeth and supporting structures; Z79.899 Other long term (current) drug therapy
CPT/HCPCS: 36415; 70487; 80048; 80053; 80202; 83540; 83550; 84132; 85025; 99285; G0378; J0295; J1885; J2543; A9270-GY; J3370

== ENCOUNTER 2025-10-09 06:09 | Emergency (ER) | payer SELFPAY ==
[2025-10-09 06:21] VITALS: TEMP 99.3
--- NOTE | 2025-10-09 06:30 | ERPHSYRPT ---
- History of Present Illness Time Seen by Provider: 10/09/25 06:25 Source: patient Exam Limitations: no limitations Patient Subjective Stated Complaint: c/o toothache on left side Triage Nursing Assessment: patient brought self to ED eith c/o left sided toothache. patient states the pain is 6/10 and started yesterday. patient has been unable to see dentisit ronal to insurance issues. patient took a percocet 6 hours ago but pain hasn't subsided. gait steady, vitals, wnl, afebrile, patiwnt doesn't appear to be in any distress. patient states the pain is from a bottom molar, dental decay present, swelling in buccal area present. Physician History: This is a 35-year-old white male patient has a history of anxiety and depression and has generalized poor dentition chronically. He presents with pain in the left lower molar region that began approximately 6 to 8 hours ago. He took Percocet 6 hours ago which did not help his pain. Patient was very specific in what he wanted for management. He wanted chlorhexidine, lidocaine 2% oral jelly and Augmentin. He states that clindamycin and amoxicillin do not work for him. He has not seen a dentist yet. Timing/Duration: abrupt onset (Last evening) Severity: moderate ENT Location: dental Prearrival Treatment: prescription meds Associated Symptoms: jaw pain (Left side), tooth pain (Left lower molars), other (Patient has bilateral jaw swelling. The right side is more swollen than the left. That is the side he has his tobacco chew and.), No voice change Allergies/Adverse Reactions: No Known Drug Allergies Allergy (Verified 10/09/25 06:13) Home Medications: Pregabalin [Lyrica] 300 mg PO BID 03/15/21 [History] Doxepin HCl 30 mg PO HS 10/23/23 [History] Oxycodone HCl/Acetaminophen [Oxycodone-Acetaminophn 7.5-325] 1 each PO Q4-6HPRN PRN 05/22/24 [History] Hx Tetanus, Diphtheria Vaccination/Date Given: Yes Hx Influenza Vaccination/Date Given: No Hx Pneumococcal Vaccination/Date Given: No Travel Risk - International Travel Have you traveled outside of the country in past 3 weeks: No - Emerging Infectious Disease Are you exhibiting symptoms associated with any current EIDs: No - Review of Systems Constitutional: No Symptoms Eyes: No Symptoms Ears, Nose, & Throat: Other (Dental pain) Respiratory: No Symptoms Cardiac: No Symptoms Abdominal/Gastrointestinal: No Symptoms Genitourinary Symptoms: No Symptoms Musculoskeletal: No Symptoms Skin: No Symptoms Neurological: No Symptoms Psychological: No Symptoms Endocrine: No Symptoms Hematologic/Lymphatic: No Symptoms Immunological/Allergic: No Symptoms All Other Systems: Reviewed and Negative - Past Medical History Pertinent Past Medical History: Yes Neurological History: No Pertinent History ENT History: No Pertinent History Cardiac History: No Pertinent History Respiratory History: No Pertinent History Endocrine Medical History: No Pertinent History Musculoskeletal History: Arthritis, Fractures GI Medical History: Hernia History: No Pertinent History Psycho-Social History: Anxiety, Depression Male Reproductive Disorders: No Pertinent History Other Medical History: ALLERGIES, ECZEMA, MRSA as a child but unsure of source - Past Surgical History Past Surgical History: Yes Neuro Surgical History: No Pertinent History Cardiac: No Pertinent History Respiratory: No Pertinent History Gastrointestinal: Hernia Repair Genitourinary: No Pertinent History Musculoskeletal: No Pertinent History Male Surgical History: No Pertinent History Other Surgical History: TUBES IN EARS Significant Family History: heart disease, cancer, diabetes - Social History Smoking Status: Heavy tobacco smoker How long have you smoked: 20 Exposure to second hand smoke: Yes Drug Use: narcotics - Social Determinants of Health Will the patient participate in the screening: Yes Do you worry about a steady place to live?: No Do you have any problems with any of the following?: No known problems In the past 12 months,have you had to go without utilities?: No Transportation Issues: No Has anyone in your support network made you feel unsafe?: No Have you or anyone in your house had to go w/o enough food: No - Nursing Vital Signs Nursing Vital Signs: Initial Vital Signs Temperature 99.3 F 10/09/25 06:14 Pulse Rate 114 H 10/09/25 06:14 Respiratory Rate 17 10/09/25 06:14 Blood Pressure 137/94 10/09/25 06:14 O2 Sat by Pulse Oximetry 96 10/09/25 06:14 Pain Scale Pain Intensity 6 - Physical Exam General Appearance: no apparent distress, alert, obese Eye Exam: bilateral eye: normal inspection, PERRL, EOMI Ear Exam: bilateral ear: auricle normal Nasal Exam: normal inspection Throat Exam: dental tenderness (Generalized but worse on the left lower molar region. 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 nml as tested, nml cerebellar function, nml station & gait, sensation nml Skin Exam: normal color, warm, dry SpO2 Interpretation: normal SpO2: 96 O2 Delivery: Room Air - Course Nursing assessment & vital signs reviewed: Yes Ordered Tests: Medication Summary Generic Name Dose Route Start Last Admin Trade Name Freq PRN Reason Stop Dose Admin Ceftriaxone Sodium 1,000 mg 10/09/25 06:49 Ceftriaxone Sodium 1000 Mg Inj Vial IM 10/09/25 06:50 STAT ONE - Progress Progress: unchanged, pain not gone completely Progress Note: 10/09/25 06:53 My medical decision making and the assignment of low complexity of this patient's medical issue today is based on review of the patient's past medical history, review the patient's medication list, reviewed patient drug allergy list, history present illness and physical findings on examination. The workup in this patient does not necessitate radiographic or laboratory studies. Differential diagnosis includes gingivitis, dental caries, fractured teeth Counseled pt/family regarding: diagnosis, need for follow-up Medical Desision Making - Diagnostic Testing Diagnostic test were ordered, analyzed, and reviewed by me: No - Risk of complications Low Risk: Low risk of morbidity from additional dx testing or treatment The pt has a mod risk of morbidity or mortality based on: Need for prescription drug management - Departure Departure Disposition: Home Clinical Impression: Pain due to dental caries, Gingivitis Condition: Stable Critical Care Time: No Referrals: MARYANNE BLAKE MD [Primary Care Provider, [facility]] - Follow up/PCP as directed Additional Instructions: If there are no contraindications to do so, use Tylenol and ibuprofen for pain control. Call the dentist on 10/11/2025, to make an outpatient appointment for definitive care. Prescriptions: Amoxicillin/Potassium Clav [Augmentin 500-125 Tablet] 1 each PO TID 7 Days #30 tablet lidocaine HCL [Lidocaine HCl Viscous] 10 ml MM Q8H #100 ml Chlorhexidine Gluconate [Peridex] 15 ml MM BID #300 ml
[2025-10-09] MEDS ORDERED: XYLOCAINE 1% HCL 20 ML MDV ONE (06:52)
[2025-10-09] MEDS ORDERED: Rocephin 1000 MG INJ ONE (06:52)
[2025-10-09] MEDS: Rocephin 1000 MG INJ IM ONE (06:53)
[2025-10-09 07:01] VITALS: BP 136/70; PULSE 115; RESP 18
[2025-10-09 07:06] VITALS: O2SAT 96
== END 2025-10-09 07:18 | disposition home or self-care (01) ==
LOC: ED 06:09
DX: K02.9 Dental caries, unspecified (principal); K05.10 Chronic gingivitis, plaque induced; K08.89 Other specified disorders of teeth and supporting structures; Z79.899 Other long term (current) drug therapy; Z72.0 Tobacco use